=== PATIENT | female | born 1940 | race Caucasian/White ===

== ENCOUNTER 2024-09-29 11:23 | Emergency (ER) | payer MEDICARE, SELFPAY ==
--- NOTE | ~2024-09-29 | CT_ITS ---
EXAMINATION: CT MASTOIDS/TEMPORAL BONES WITHOUT CONTRAST CLINICAL INFORMATION: Right hearing loss, drainage, abnormal appearance of the tympanic membrane. 84-year-old female. COMPARISON: None available. TECHNIQUE: Axial CT imaging of the petrous temporal bones and mastoids was performed using standard technique from the region of the pterion to the base of the mandibular coronoid. Sagittal, coronal, and thin section axial reformatted images were constructed from the axial data set. This CT examination was performed using dose optimization techniques as appropriate, variously including the following: *Automated exposure control *Adjustment of mA and/or kV according to patient size (this includes techniques or standardized protocols for targeted exams where dose is matched to indication/reason for exam; i.e. extremities or head) *Use of iterative reconstruction technique DLP: 258 mGy-cm FINDINGS: Right Petrous Temporal Bone and Mastoid: -There is abnormal fluid opacity and/or soft tissue throughout the right mastoid air cells and mastoid antrum. There is extension of opacity through the mastoid antrum, into the middle ear cavity, surrounding the ossicles, and involving the epitympanum, mesotympanum, and hypotympanum. Only a small amount of pneumatization is present in the hypotympanum. -There is thickening and mild soft tissue surrounding and obscuring the tympanic membrane. No definite retraction although visualization is limited. -There is abnormal opacity in the bony canalicular EAC abutting the tympanic. Remainder of the EAC is normal. -There is no bony erosion or ossicular erosion identified. Ossicles appear intact and normally aligned. The scutum is not eroded. -The tegmen tympani is intact. Tegmen mastoideum is intact. -The middle ear structures including the IAC, cochlea, vestibule, and semicircular canals are normal in appearance. -There is normal mineralization of the bony otic capsule. -No evidence of semicircular canal dehiscence. -Carotid canal is corticated. -The 7th nerve canal has a normal course and appearance. -The right TM joint demonstrates mild arthritis with a small amount of chondrocalcinosis present. Left Petrous Temporal Bone and Mastoid: --There is abnormal fluid opacity and/or soft tissue throughout the left mastoid air cells and mastoid antrum. There is extension of opacity through the mastoid antrum, into the middle ear cavity, surrounding the ossicles, and involving the epitympanum, mesotympanum, and hypotympanum. No pneumatization of the middle ear canal. -There is thickening and soft tissue surrounding and obscuring the tympanic membrane. No definite retraction although visualization is limited. -There is abnormal opacity in the bony canalicular EAC obscuring the tympanic. There is soft tissue narrowing of the mid EAC with tapering/worsening approaching the tympanic. -There is no bony erosion or ossicular erosion identified. Ossicles appear intact and normally aligned. The scutum is not eroded. -The tegmen tympani is intact. Tegmen mastoideum is intact. -The middle ear structures including the IAC, cochlea, vestibule, and semicircular canals are normal in appearance. -There is normal mineralization of the bony otic capsule. -No evidence of semicircular canal dehiscence. -Carotid canal is corticated. -The 7th nerve canal has a normal course and appearance. -The left TM joint demonstrates moderate arthritis with a associated chondrocalcinosis present. OTHER: -Left pterional craniotomy. -Moderate polypoid mucosal thickening right sphenoid sinus with mild bony thickening of the sinus wall suggesting chronicity. -Left lens replacement. Globes and orbital contents otherwise appear normal. -Limited imaging of the intracranial contents demonstrates no acute abnormality. -Degenerative changes atlantoaxial joint, partially imaged. CT/CT mastoid IMPRESSION: 1. Soft tissue/fluid opacity throughout the bilateral mastoid air cells, bilateral mastoid antra, and bilateral middle ear cavities with only a tiny amount of pneumatization in the right hypotympanum. Soft tissue/fluid attenuation surrounds the bony ossicles bilaterally without evidence of ossicular erosion or other bony erosions. No tegmen dehiscence is evident. Findings are most likely inflammatory in nature related to middle ear and mastoid effusions. Doubt cholesteatoma given the lack of associated osseous erosions. 2. The bilateral cochlea, vestibule, and semicircular canals image normally. Normal bony otic capsules. 3. 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 4. 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 Electronically signed by: He Vasquez MD 09/29/2024 03:40 PM [facility]
[2024-09-29 11:40] VITALS: BP 154/72; PULSE 65; RESP 18; TEMP 36.9; O2SAT 100; BMI 23.4
--- NOTE | 2024-09-29 12:13 | ED.EAR ---
HPI - Ear Problem General Chief complaint: Ear Problems Stated complaint: R EARDRUM RUPTURED W/PUS,LOSS OF HEARING PER EMS Time Seen by Provider: 09/29/24 11:40 Source: patient, EMS, RN notes reviewed and old records reviewed Mode of arrival: EMS Limitations: other (poor historian) History of Present Illness ED Provider: Torrie Deluca PA-C HPI Narrative: 84 yo female with history of MD Complaint: ear discharge and decreased hearing Location: right ear Duration: constant Discharge from ear: yes - purulent Associated symptoms ear: decreased hearing Treatment prior to arrival: other (po abx, started ceftin 09/28) Related Data Allergies Allergy/AdvReac Type Severity Reaction Status Date / Time bee venom protein (honey bee) Allergy Unknown Verified 09/29/24 11:46 droperidol [From Inapsine] Allergy Unknown Verified 09/29/24 11:46 folic acid Allergy Unknown Verified 09/29/24 11:46 Gadolinium-Containing Allergy Unknown Verified 09/29/24 11:46 Contrast Medi meperidine [From Demerol] Allergy Unknown Verified 09/29/24 11:46 Review of Systems Review of Systems: Yes all other systems are reviewed and are negative PMFSH Social History Social History Advance Directives: No Advance Directives Information Provided: Yes Physical Exam Vital Signs: Vital Signs: Last Vital Signs Temp 98.4 F 09/29/24 11:40 Pulse 65 09/29/24 11:40 Resp 18 09/29/24 11:40 BP 154/72 H 09/29/24 11:40 Pulse Ox 100 09/29/24 11:40 O2 Del Method Room Air 09/29/24 11:40 BMI result Body Mass Index 23.4 Critical Care Time Critical Care Time Critical Care Time: No Discharge Plan Discharge Clinical Impression: Otitis externa Patient Disposition: Home, Self-Care Print Language: Turkmen
[2024-09-29 15:03] VITALS: BP 162/76; PULSE 76; RESP 18; TEMP 36.9; O2SAT 100
[2024-09-29 16:52] VITALS: BP 150/79; PULSE 75; RESP 18; TEMP 37; O2SAT 97
[2024-09-29] MEDS: levoFLOXacin 500 MG TABLET PO (16:52)
[2024-09-29 17:08] VITALS: BP 150/79; PULSE 75; RESP 18; TEMP 37; O2SAT 97
== END 2024-09-29 17:09 | disposition home or self-care (01) ==
PROVIDERS: Emergency Provider Emergency Medicine Emergency Medical Services; PCP Nurse Practitioner Family
DX: H60.91 Unspecified otitis externa, right ear (principal); H92.11 Otorrhea, right ear; I11.0 Hypertensive heart disease with heart failure; I50.9 Heart failure, unspecified; E78.5 Hyperlipidemia, unspecified
CPT/HCPCS: 70481; 99283; 99284

== ENCOUNTER → 2024-09-29 12:12 | Outpatient (BNV) | payer MEDICARE, SELFPAY | PROVIDERS: Emergency Provider Emergency Medicine Emergency Medical Services; PCP Nurse Practitioner Family; Visit Provider Radiology Diagnostic Radiology | DX: H92.11 Otorrhea, right ear (principal); H91.91 Unspecified hearing loss, right ear | CPT/HCPCS: 70481 ==

== ENCOUNTER 2024-10-13 10:47 | Inpatient (IN) | payer MEDICARE, OTHER, SELFPAY ==
[2024-10-13] VITALS (13 sets, daily range): BP systolic 90–147; BP diastolic 43–76; PULSE 61–96; RESP 12–19; TEMP 36.4–38.6; O2SAT 89–100; BMI 20.6
--- NOTE | ~2024-10-13 | CT_ITS ---
CLINICAL HISTORY: Patient with Sepsis, vomiting, source unclear CT ABDOMEN AND PELVIS WITH CONTRAST Comparison: None Findings: There are confluent airspace opacities in the bilateral lower lobes. No pleural effusion. Small hiatal hernia. The heart is enlarged with no significant pericardial effusion. No acute abnormalities in the solid organs. No urolithiasis. The gallbladder is not visualized. No bowel obstruction, pneumoperitoneum, or pneumatosis. Multiple small and large bowel loops are nondistended limited evaluation for mucosal thickening. There appears to be paracolic fat stranding in the descending colon. Large duodenal diverticulum. The appendix is not seen. There are senescent changes in the uterus. Urinary bladder unremarkable. No free fluid. There is a T12 compression fracture with 4 mm bony retropulsion. There is 70 percent body height loss. Advanced degenerative changes in the lumbar spine with levoscoliosis. There is a large avulsion fracture in the greater trochanter of the proximal left femur. Fracture margins appear partly sclerotic. No hip dislocation. IMPRESSION: 1. Motion affected study. 2. Possible colitis in the descending colon. No perforation or ischemia. 3. No peritoneal abscess, bowel obstruction or ascites. 4. No obstructive or acute inflammatory changes in the genitourinary tract. 5. Acute to subacute T12 compression fracture. 6. Acute to subacute displaced large avulsion fracture in the left greater trochanter. 7. Confluent airspace opacities in the bilateral lower lobes secondary to volume loss or infection. This document has been electronically signed by: Rica Urbano DO on 10/13/2024 17:56:38
--- NOTE | ~2024-10-13 | XR_ITS ---
EXAMINATION: Left hip and AP pelvis 3 views. CLINICAL INDICATION: Greater trochanter fracture. COMPARISON: None. FINDINGS: AP pelvis reveals normal bilateral hip joint and SI joint space. There is fracture of left greater trochanter. The right hip and proximal femur is unremarkable. No other pelvic fractures seen. AP and frog-leg views left hip reveal fracture of left greater trochanter. Loss of hip joint space likely arthritic changes seen. The soft tissues are normal. XR/XR hip LT min 2V w/wo pel IMPRESSION: Mildly displaced left greater trochanter fracture. Bilateral hip joint and rest of the pelvis appears unremarkable. Electronically signed by: Santos Gamboa MD 10/14/2024 10:32 AM [facility]
--- NOTE | ~2024-10-13 | XR_ITS ---
EXAMINATION: XR CHEST CLINICAL INFORMATION: fever, cough COMPARISON: Fever and cough TECHNIQUE: Frontal view of the chest was obtained. FINDINGS: The lungs are well-expanded and clear acute pneumonic process. There is platelike atelectasis/ scarring in left upper lobe. Prominent interstitial markings are seen in both lower lobes but no consolidation seen. The heart size and pulmonary vascularity is normal. No gross bony abnormality seen. XR/XR chest 1V IMPRESSION: Platelike atelectasis left upper lobe with prominent markings in both lower lobes. No suspicion for congestion. Electronically signed by: Santos Gamboa MD 10/13/2024 12:04 PM [facility] [place]
--- NOTE | 2024-10-13 11:10 | ED.GENADULT ---
HPI - General Adult General Chief complaint: Altered Mental Status Stated complaint: VOMITING,ALTERED,LOW SAT FROM [facility] Time Seen by Provider: 10/13/24 11:06 History of Present Illness ED Provider: Becky SPENCER narrative: The patient is an 84-year-old woman who lives at [facility]. She was sent to the hospital from the assisted living facility today apparently because she has been vomiting all night and seemed somewhat confused this morning. Here she was found to have a temperature of 101.5 degrees rectally. She has been coughing. The staff at the facility felt that she had a low oxygen saturation. The patient is deaf and is somewhat difficult to communicate with. She apparently normally communicates using writing and a white board. Currently she seems to be denying pain. She seems weak and is not making much of an effort to interact or communicate however. However she is denying abdominal pain. The patient's daughter says that the patient has a meningioma which has been reviewed at the [facility] and is considered to be untreatable. The daughter says they has been told that this will likely impinge on the patient's optic nerves and may cause blindness. The patient's daughter is Romy Charlton. Her phone number is [phone]. Related Data Home Medications ?Medication ?Instructions ?Recorded ?Confirmed acetaminophen 325 mg tablet 650 mg PO Q6H PRN Pain (Scale 10/13/24 10/13/24 Score 1-3) adalimumab 40 mg/0.4 mL 40 mg subcut Q14D 10/13/24 10/13/24 subcutaneous pen kit aspirin 81 mg tablet,delayed 81 mg PO DAILY 10/13/24 10/13/24 release atorvastatin 40 mg tablet 40 mg PO DAILY 10/13/24 10/13/24 bisacodyl 10 mg rectal suppository 10 mg MI DAILY PRN Constipation 10/13/24 10/13/24 escitalopram oxalate 5 mg tablet 7.5 mg PO DAILY 10/13/24 10/13/24 famotidine 20 mg tablet 20 mg PO BID 10/13/24 10/13/24 furosemide 20 mg tablet 20 mg PO DAILY 10/13/24 10/13/24 magnesium hydroxide 400 mg/5 mL 30 ml PO DAILY PRN Constipation 10/13/24 10/13/24 oral suspension (Milk of Magnesia) magnesium oxide 400 mg PO BID 10/13/24 10/13/24 metoprolol tartrate 25 mg tablet 12.5 mg PO BEDTIME 10/13/24 10/13/24 multivitamin 1 tab PO DAILY 10/13/24 10/13/24 niacinamide 500 mg tablet 500 mg PO DAILY 10/13/24 10/13/24 ondansetron HCl 4 mg tablet 4 mg PO Q8H PRN Nausea And Vomiting 10/13/24 10/13/24 oxcarbazepine 150 mg tablet 150 mg PO DAILY 10/13/24 10/13/24 oxcarbazepine 300 mg tablet 600 mg PO BEDTIME 10/13/24 10/13/24 potassium chloride 10 mEq 40 meq PO TID 10/13/24 10/13/24 capsule,extended release sennosides 8.6 mg tablet (senna) 8.6 mg PO BID PRN Constipation 10/13/24 10/13/24 sodium phosphates 19 gram-7 118 ml MI DAILY PRN Constipation 10/13/24 10/13/24 gram/118 mL enema (Fleet Enema) Allergies Allergy/AdvReac Type Severity Reaction Status Date / Time bee venom protein (honey bee) Allergy Unknown Verified 10/13/24 11:07 droperidol [From Inapsine] Allergy Unknown Verified 09/29/24 11:46 folic acid Allergy Unknown Verified 09/29/24 11:46 Gadolinium-Containing Allergy Unknown Verified 09/29/24 11:46 Contrast Medi meperidine [From Demerol] Allergy Unknown Verified 09/29/24 11:46 Review of Systems Review of Systems: Yes all other systems are reviewed and are negative [facility] Social History Social History Smoked in Last 30 Days: No Use of substances other than those prescribed or required for medical reasons: No Advance Directives: No Physical Exam ED Vital Signs: Vital Signs - 24 hr 10/13/24 11:05 10/13/24 12:05 10/13/24 13:48 Temperature 101.5 F H Pulse Rate 93 90 85 Respiratory Rate 18 19 18 Blood Pressure 113/46 L 147/76 H 134/54 L Pulse Oximetry 97 96 94 Oxygen Delivery Method Nasal Cannula Nasal Cannula Nasal Cannula Oxygen Flow Rate 4 4 10/13/24 14:11 10/13/24 14:56 10/13/24 16:34 Temperature 98.1 F 97.5 F Pulse Rate 83 80 81 Respiratory Rate 16 16 12 Blood Pressure 133/50 L 122/50 L 105/55 L Pulse Oximetry 99 95 98 Oxygen Delivery Method Nasal Cannula Nasal Cannula Room Air Oxygen Flow Rate 2 2 10/13/24 17:25 Temperature Pulse Rate 73 Respiratory Rate 18 Blood Pressure 137/63 Pulse Oximetry 100 Oxygen Delivery Method Nasal Cannula Oxygen Flow Rate 2 BMI result Body Mass Index 20.6 Const Other: The patient has a slight, chronically ill-appearing 84-year-old. She seemed to be resting. She did not seem in pain or respiratory distress. She was difficult to communicate with because she is deaf. I wrote on a white board to try to communicate with her. It was not clear if she was able to read my writing. HENMT Other: Face is symmetrical. Mucous membranes moist. I thought tympanic membranes were normal bilaterally. Eyes Other: Pupils are round equal, conjunctivae are clear, extraocular movements intact Neck Other: Neck is supple, no JVD Resp Other: No increased work of breathing. No definite crackles. Cardio Rate: regular rate Rhythm: regular rhythm Heart sounds: S1 normal heart sound present and S2 normal heart sound present GI Other: The abdomen was soft. There was no definite tenderness. Skin Other: Skin is pale and dry Neuro Other: The patient seemed to be sleeping. She aroused with gentle stimuli. She makes eye contact. She smiles. Her hearing is very poor. It was difficult to say if she reads lips. I tried to communicate with her with the whiteboard. It was hard to tell if she red my handwriting. About as much as I was able to communicate with her was that she does not have any abdominal pain. Her eye movements seem intact. Her face seems symmetrical. She seems to move her extremities symmetrically. Extrem Other: No peripheral edema Medications Administered Generic Name Dose Route Start Last Admin Trade Name Freq PRN Reason Stop Dose Admin Lactated Ringer's 1,000 mls @ 999 mls/hr 10/13/24 17:30 10/13/24 17:31 Lr IV 10/13/24 18:30 999 mls/hr .Q1H1M MODESTA Administration Discontinued Medications Generic Name Dose Route Start Last Admin Trade Name Freq PRN Reason Stop Dose Admin Piperacillin Sod/Tazobactam 100 mls @ 200 mls/hr 10/13/24 12:09 10/13/24 12:51 Sod 4.5 gm/ Sodium Chloride IV 10/13/24 12:38 Infused ONCE ONE Infusion Vancomycin HCl 1,250 mg/ 250 mls @ 166.667 mls/hr 10/13/24 12:10 10/13/24 14:48 Sodium Chloride IV 10/13/24 13:39 Infused ONCE ONE Infusion Lactated Ringer's 1,000 mls @ 999 mls/hr 10/13/24 12:15 10/13/24 14:07 Lr IV 10/13/24 13:15 Infused .Q1H1M MODESTA Infusion Lactated Ringer's 1,000 mls @ 999 mls/hr 10/13/24 16:30 10/13/24 17:24 Lr IV 10/13/24 17:30 Infused .Q1H1M MODESTA Infusion Iohexol 100 ml 10/13/24 14:40 10/13/24 14:40 Iohexol 350 Mg/Ml 100 Ml Infus..Btl IV 10/13/24 14:41 85 ml ONCE ONE Administration Medical Decision Making Medical Decision Making [facility] Narrative: The patient is an 84-year-old woman with a history of deafness and a history of an inoperable meningioma who presents with weakness and fever after having had multiple episodes of vomiting. She has an elevated white count. Her rectal temperature was 101.5. Blood cultures were obtained. Her lactate was 2.2. Urinalysis does not show a source of fever. Her abdomen seems benign. Chest x-ray did not show a definite pneumonia although there are some abnormalities on the chest x-ray. She was given empiric antibiotics of Zosyn and vancomycin and IV fluids. A CT scan of the abdomen and pelvis was done given her history of vomiting and the lack of a clear source of her fever. There was some delay in the reading of the CT scan. However the CT scan does not show any definite source of fever. There is a questionable finding of colitis. Given the absence of any abdominal pain or apparent tenderness I am not convinced the patient has colitis. The portion of the lungs visualized on CT shows bilateral lower lobe airspace disease. I think this is a more likely source of the patient's fever. The patient was in the emergency room for many hours. She ultimately looked much more lively. She will be admitted to the hospitalist service. Lab Data 10/13/24 11:35 10/13/24 11:35 Labs: Lab Results 10/13/24 10/13/24 10/13/24 Range/Units 11:35 12:51 15:35 WBC 21.2 H (4.8-10.8) X10*3/uL RBC 4.08 L (4.20-5.50) X10*6/uL Hgb 12.3 (12.0-16.0) g/dl Hct 38.1 (37.0-47.0) % MCV 93.4 (80.0-98.0) fL MCH 30.1 (27.0-33.0) pg MCHC 32.3 (31.0-35.0) g/dl RDW 15.9 (11.0-16.0) % Plt Count 193 (160-400) X10*3/uL MPV 8.7 L (9.4-12.3) fL Immature Gran % (Auto) Cancelled Neut % (Auto) Cancelled Lymph % (Auto) Cancelled [place] % (Auto) Cancelled Eos % (Auto) Cancelled Baso % (Auto) Cancelled Lymph # (Auto) Cancelled [place] # (Auto) Cancelled Eos # (Auto) Cancelled Baso # (Auto) Cancelled Abs Immat Gran (auto) Cancelled Absolute Neuts (auto) Cancelled Absolute Nucleated RBC 0.000 (0.0-0.012) X10*3/uL Nucleated RBC % (auto) 0.0 (0.0-0.2) /100WBC Neutrophils % (Manual) 89 H (45-73) % Band Neutrophils % 5 (3-5) % Lymphocytes % (Manual) 1 L (20-40) % Monocytes % (Manual) 5 (2-11) % Abs Neuts (Manual) 19.9 H (2.0-8.3) X10*3/uL Lymphocytes # (Manual) 0.2 L (1.2-4.9) X10*3/uL Monocytes # (Manual) 1.1 (0.1-1.2) X10*3/uL Toxic Vacuolation PRESENT Platelet Estimate NORMAL (NORMAL) Plt Morphology Comment NORMAL RBC Morphology NORMAL PT 15.8 H (10.9-12.4) SEC INR 1.4 H (0.9-1.1) Sodium 138 (135-145) mmol/L Potassium 4.0 (3.3-5.1) mmol/L Chloride 106 (96-108) mmol/L Carbon Dioxide 23 (22-29) mmol/L Anion Gap 13 (12-20) BUN 8 L (9-16) mg/dL Creatinine 0.87 (0.5-1.4) mg/dL Estim Creat Clear Calc 38.3 Estimated GFR > 60 Random Glucose 107 (60-115) mg/dL Lactic Acid 2.2 H* (0.5-2.0) mmol/L Lactic Acid F/U @ 2Hr 2.2 H* (0.5-2.0) mmol/L Calcium 8.9 (8.4-10.2) mg/dL Magnesium 1.5 L (1.6-2.6) mg/dL Total Bilirubin 0.5 (0.0-1.0) mg/dL Direct Bilirubin 0.2 (0.0-0.5) mg/dL AST 50 H (5-31) U/L ALT 24 (0-31) U/L Alkaline Phosphatase 175 H (39-117) U/L C-Reactive Protein 1.60 H (< or = 0.50) mg/dL Total Protein 7.3 (6.5-8.0) g/dL Albumin 3.4 L (3.5-5.0) g/dL Urine Color Yellow Urine Appearance Clear Urine pH 7.5 (5.0-9.0) Ur Specific [place] 1.015 (1.005-1.025) Urine Protein Negative (Neg-Trace) mg/dL Urine Glucose (UA) Negative (Negative) mg/dL Urine Ketones Negative (Negative) mg/dL Urine Blood Negative (Negative) Urine Nitrite Negative (Negative) Ur Leukocyte Esterase Negative (Negative) Influenza Type A (PCR) NEGATIVE (Negative) Influenza Type B (PCR) NEGATIVE (Negative) RSV RNA Qual (PCR) NEGATIVE (Negative) SARS-CoV-2 RNA (RT-PCR) NEGATIVE (Negative) Discharge Plan Discharge Patient Disposition: Admitted As Inpatient Prescriptions: No Action multivitamin Tablet 1 tab PO DAILY atorvastatin 40 mg tablet 40 mg PO DAILY oxcarbazepine 150 mg Tablet 150 mg PO DAILY sennosides [senna] 8.6 mg Tablet 8.6 mg PO BID PRN (Reason: Constipation) potassium chloride 10 mEq Capsule, Extended Release 40 meq PO TID acetaminophen 325 mg Tablet 650 mg PO Q6H PRN (Reason: Pain (Scale Score 1-3)) ondansetron HCl 4 mg tablet 4 mg PO Q8H PRN (Reason: Nausea And Vomiting) oxcarbazepine 300 mg Tablet 600 mg PO BEDTIME aspirin 81 mg Tablet,Delayed Release (Dr/Ec) 81 mg PO DAILY famotidine 20 mg tablet 20 mg PO BID magnesium hydroxide [Milk of Magnesia] 400 mg/5 mL Suspension 30 ml PO DAILY PRN (Reason: Constipation) bisacodyl 10 mg Suppository 10 mg MI DAILY PRN (Reason: Constipation) niacinamide 500 mg Tablet 500 mg PO DAILY Fleet Enema 19-7 gram/118 mL Enema 118 ml MI DAILY PRN (Reason: Constipation) furosemide 20 mg tablet 20 mg PO DAILY escitalopram oxalate 5 mg tablet 7.5 mg PO DAILY metoprolol tartrate 25 mg Tablet 12.5 mg PO BEDTIME adalimumab 40 mg/0.4 mL Pen Injector Kit 40 mg SUBCUT Q14D magnesium oxide 400 mg magnesium Tablet 400 mg PO BID Print Language: Czech
--- NOTE | 2024-10-13 11:18 | ECG_ITS ---
Test Reason : WEAKNESS Blood Pressure : / mmHG Vent. Rate : 089 BPM Atrial Rate : 089 BPM P-R Int : 170 ms QRS Dur : 092 ms QT Int : 454 ms P-R-T Axes : 087 -50 056 degrees QTc Int : 552 ms Normal sinus rhythm Incomplete right bundle branch block Left anterior fascicular block Possible Lateral infarct , age undetermined Abnormal ECG No previous ECGs available Referred By: Bronson Pena Electronically Signed By:VAN HA MD
--- NOTE | 2024-10-13 11:34 | PHA.MEDREC ---
Addendum entered by Anna Carmen [facility] 10/14/24 12:06: Per nurse Arroyo at [facility], a dose of Humira was due yestereday 10/13/24. [employer] delivered 1 dose/1 syringe today 10/14/24 to be given. Original Note: Pharmacy Consult ? Medication Reconciliation Pharmacy has completed the medication reconciliation. Utilized med list to confirm home meds.
[2024-10-13 11:47] LABS: Hematocrit 38.1 % (37.0-47.0); Hemoglobin 12.3 g/dl (12.0-16.0); Mean Corpuscular HGB Conc 32.3 g/dl (31.0-35.0); Mean Corpuscular Hemoglobin 30.1 pg (27.0-33.0); Mean Corpuscular Volume 93.4 fL (80.0-98.0); Mean Platelet Volume 8.7 fL (9.4-12.3); Platelet Count 193 X10*3/uL (160-400); Red Blood Count 4.08 X10*6/uL (4.20-5.50); Red Cell Distribution Width 15.9 % (11.0-16.0); WBC ABN SCTR FOR CBC 1; White Blood Count 21.2 X10*3/uL (4.8-10.8)
[2024-10-13 11:50] LABS: INTERNATIONAL NORM RATIO 1.4 (0.9-1.1); Prothrombin Time 15.8 SEC (10.9-12.4)
[2024-10-13 12:02] LABS: Alanine Aminotransferase 24 U/L (0-31); Albumin Level 3.4 g/dL (3.5-5.0); Alkaline Phosphatase 175 U/L (39-117); Anion Gap 13 (12-20); Aspartate Amino Transferase 50 U/L (5-31); Bilirubin Direct 0.2 mg/dL (0.0-0.5); Bilirubin Total 0.5 mg/dL (0.0-1.0); Blood Urea Nitrogen 8 mg/dL (9-16); Calcium 8.9 mg/dL (8.4-10.2); Carbon Dioxide 23 mmol/L (22-29); Chloride 106 mmol/L (96-108); Creatinine Clr Calc Pharmacy 38.3; Estimated Glomerular Filt Rate > 60; Glucose Random 107 mg/dL (60-115); Magnesium 1.5 mg/dL (1.6-2.6); Sodium 138 mmol/L (135-145); Total Protein 7.3 g/dL (6.5-8.0)
[2024-10-13 12:07] LABS: Band Neutrophils Percent 5 % (3-5); Lactic Acid 2.2 mmol/L (0.5-2.0); Lymphocytes Absolute Manual 0.2 X10*3/uL (1.2-4.9); Lymphocytes Percent Manual 1 % (20-40); Monocytes Absolute Manual 1.1 X10*3/uL (0.1-1.2); Monocytes Percent Manual 5 % (2-11); Neutrophils Absolute Manual 19.9 X10*3/uL (2.0-8.3); Neutrophils Percent Manual 89 % (45-73); RBC Morphology NORMAL
[2024-10-13 12:08] LABS: Platelet Estimate NORMAL (NORMAL); Platelet Morphology Comment NORMAL; Toxic Vacuolation PRESENT
[2024-10-13] MEDS: Piperacillin Sodium/Tazobactam 4.5 GM in 0.9 % Sodium Chloride 100 ML IV ×2 (12:17→21:23)
[2024-10-13] MEDS: Lactated Ringers 1,000 ML 999 ML IV ×3 (12:20→17:31)
[2024-10-13 12:22] LABS: Influenza A PCR NEGATIVE (Negative); Influenza B PCR NEGATIVE (Negative); Resp Syncy Virus RNA Qual PCR NEGATIVE (Negative); SARS COV2 PCR INHOUSE NEGATIVE (Negative)
[2024-10-13] MEDS: vancomycin HCL 1,250 MG in 0.9 % Sodium Chloride 250 ML 166.67 MG IV (12:50)
[2024-10-13 12:57] LABS: Appearance Urine Clear; Color Urine Yellow; Glucose Urine UA Negative (Negative); Leukocyte Esterase Urine Negative (Negative); Nitrite Urine Negative (Negative); PH 7.5 (5.0-9.0); Specific Gravity - Urine 1.015 (1.005-1.025); Urine Blood Negative (Negative); Urine Ketones Negative (Negative); Urine Protein Negative (Neg-Trace)
--- NOTE | 2024-10-13 13:21 | PC.NURSE ---
pt to ED from [facility] for reports of vomiting for much of last night. vomit stains on shirt are green. pt vomited once in ED. Pt changed, 20g IV right forearm and 20g IV left hand (EMS). fluids infusing, abx infusing. temp 1015 rectally. pt arrived on 4L o2 that was started by SNF staff for reports of hypoxia (mid 80s). Pt has not been tried off O2 yet in ED
[2024-10-13 13:41] LABS: Reflex Lactate? Lactic Acid Added
[2024-10-13] MEDS: iohexoL 350 MG/ML 100 ML INFUS..BTL IV (14:40)
[2024-10-13 16:04] LABS: ~Lactic Acid-LAB USE ONLY 2.2 mmol/L (0.5-2.0)
--- NOTE | 2024-10-13 16:06 | PC.NURSE ---
pt is very hard of hearing, has poor vision and arrives from [facility] emergency room confused. per daughter at bedside she is not acting her baseline. repeat lactate level sent, pt NSR on monitor. Pt sleeping. Weaned down to 2L oxygen, spot in high 90s.
[2024-10-13 17:42] LABS: Reflex Lactate? 2 Y
--- NOTE | 2024-10-13 19:43 | PC.NURSE ---
Attempted to wean off O2, d/t pt not wearing any oxygen at home, on RA oxygen dropped to 88 % pt placed on 2L
--- NOTE | 2024-10-13 20:43 | P.HPHOSP_ITS ---
History of Present Illness Date of Service: 10/13/24 Attending physician on admission: Ayden Booker Chief Complaint: Vomiting, fever, altered mental status Patient is an 84-year-old female with a past medical history significant combined CHF HLD benign neoplasm meninges epilepsy disease hypothyroidism, major depression disorder, hearing loss who presented to the ED from [facility] due to bilious vomiting last night, fever, cough and decreased responsiveness. Due to the patient's lack of responsiveness, unable to obtain history. The patient is deaf and communicates with the whiteboard however she has not been able to do so today. The ED provider was able to get some history from patient's daughter, Romy Charlton, who reported that she has a meningioma that has been reviewed at [facility] and considered untreatable. Review of Systems 2 Review of Systems: Yes Unobtainable due to mental condition [facility] Medical History (Updated 10/13/24 @ 20:54 by Charito Sorto PA-C) CHF (congestive heart failure) Epilepsy Crohn's disease Deaf Meningioma HLD (hyperlipidemia) HTN (hypertension) Social History Smoked in Last 30 Days: No Use of substances other than those prescribed or required for medical reasons: No Advance Directives: No Narrative: living at [facility]. Meds Allergies Allergy/AdvReac Type Severity Reaction Status Date / Time bee venom protein (honey bee) Allergy Unknown Verified 10/13/24 11:07 droperidol [From Inapsine] Allergy Unknown Verified 09/29/24 11:46 folic acid Allergy Unknown Verified 09/29/24 11:46 Gadolinium-Containing Allergy Unknown Verified 09/29/24 11:46 Contrast Medi meperidine [From Demerol] Allergy Unknown Verified 09/29/24 11:46 Active Medications: Current Medications Acetaminophen (Acetaminophen 325 Mg Tablet) 650 mg PO Q6H PRN PRN Reason: Pain, Mild 1-3,fever,headache Calcium Carbonate (Calcium Carbonate 750 Mg Tab.Chew) 750 mg PO Q4H PRN PRN Reason: Heartburn Enoxaparin Sodium (Enoxaparin Sodium 30 Mg/0.3 Ml Syringe) 30 mg SUBCUT Q24H [place] Piperacillin Sod/Tazobactam (Sod 4.5 gm/ Sodium Chloride) 100 mls @ 200 mls/hr IV Q6H [place] Magnesium Hydroxide (Milk Of Magnesia 30 Ml Oral.Susp) 30 ml PO DAILY PRN PRN Reason: Constipation Melatonin (Melatonin 3 Mg Tablet) 6 mg PO BEDTIME PRN PRN Reason: Insomnia Ondansetron HCl (Ondansetron Hcl 4 Mg/2 Ml Vial) 4 mg IVPUSH Q8H PRN PRN Reason: Nausea and Vomiting Sodium Chloride (0.9 % Sodium Chloride Flush 3 Ml Syringe) 3 ml IVFLUSH [facility] Medications ?Medication ?Instructions ?Recorded ?Confirmed ?Last Taken ?Type acetaminophen 325 mg tablet 650 mg PO Q6H PRN Pain (Scale 10/13/24 10/13/24 Unknown History Score 1-3) adalimumab 40 mg/0.4 mL 40 mg subcut Q14D 10/13/24 10/13/24 Unknown History subcutaneous pen kit aspirin 81 mg tablet,delayed 81 mg PO DAILY 10/13/24 10/13/24 Unknown History release atorvastatin 40 mg tablet 40 mg PO DAILY 10/13/24 10/13/24 Unknown History bisacodyl 10 mg rectal suppository 10 mg MI DAILY PRN Constipation 10/13/24 10/13/24 Unknown History escitalopram oxalate 5 mg tablet 7.5 mg PO DAILY 10/13/24 10/13/24 Unknown History famotidine 20 mg tablet 20 mg PO BID 10/13/24 10/13/24 Unknown History furosemide 20 mg tablet 20 mg PO DAILY 10/13/24 10/13/24 Unknown History magnesium hydroxide 400 mg/5 mL 30 ml PO DAILY PRN Constipation 10/13/24 10/13/24 Unknown History oral suspension (Milk of Magnesia) magnesium oxide 400 mg PO BID 10/13/24 10/13/24 Unknown History metoprolol tartrate 25 mg tablet 12.5 mg PO BEDTIME 10/13/24 10/13/24 Unknown History multivitamin 1 tab PO DAILY 10/13/24 10/13/24 Unknown History niacinamide 500 mg tablet 500 mg PO DAILY 10/13/24 10/13/24 Unknown History ondansetron HCl 4 mg tablet 4 mg PO Q8H PRN Nausea And Vomiting 10/13/24 10/13/24 Unknown History oxcarbazepine 150 mg tablet 150 mg PO DAILY 10/13/24 10/13/24 Unknown History oxcarbazepine 300 mg tablet 600 mg PO BEDTIME 10/13/24 10/13/24 Unknown History potassium chloride 10 mEq 40 meq PO TID 10/13/24 10/13/24 Unknown History capsule,extended release sennosides 8.6 mg tablet (senna) 8.6 mg PO BID PRN Constipation 10/13/24 10/13/24 Unknown History sodium phosphates 19 gram-7 118 ml MI DAILY PRN Constipation 10/13/24 10/13/24 Unknown History gram/118 mL enema (Fleet Enema) Physical Exam 2 Vital Signs and Narrative: Vital Signs: Last Vital Signs Temp 97.5 F 10/13/24 16:34 Pulse 69 10/13/24 19:19 Resp 13 10/13/24 19:19 BP 118/60 10/13/24 19:19 Pulse Ox 94 10/13/24 19:44 O2 Del Method Nasal Cannula 10/13/24 19:44 O2 Flow Rate 2 10/13/24 19:44 Oxygen Flow Rate 4 10/13/24 11:05 BMI result Body Mass Index 20.6 General: pt sleeping, wakes with external stimuli but goes back to sleep quickly, NAD Resp: crackles bilateral lower lungs, no wheezing, diminished throughout CVS: +murmur, RRR GI: +BS, NT, no distention Skin: Warm, dry Neuro: limited exam due to AMS and drowsiness, pupils equal, round and reactive to light. Extremities: No LE edema Results Labs 10/13/24 11:35 10/13/24 11:35 Labs: Laboratory Results - last 24 hr 10/13/24 10/13/24 10/13/24 11:35 12:51 15:35 MCV 93.4 MCH 30.1 MCHC 32.3 RDW 15.9 Plt Count 193 MPV 8.7 L Immature Gran % (Auto) Cancelled Neut % (Auto) Cancelled Lymph % (Auto) Cancelled [place] % (Auto) Cancelled Eos % (Auto) Cancelled Baso % (Auto) Cancelled Lymph # (Auto) Cancelled [place] # (Auto) Cancelled Eos # (Auto) Cancelled Baso # (Auto) Cancelled Abs Immat Gran (auto) Cancelled Absolute Neuts (auto) Cancelled Absolute Nucleated RBC 0.000 Nucleated RBC % (auto) 0.0 Neutrophils % (Manual) 89 H Band Neutrophils % 5 Lymphocytes % (Manual) 1 L Monocytes % (Manual) 5 Abs Neuts (Manual) 19.9 H Lymphocytes # (Manual) 0.2 L Monocytes # (Manual) 1.1 Toxic Vacuolation PRESENT Platelet Estimate NORMAL Plt Morphology Comment NORMAL RBC Morphology NORMAL PT 15.8 H INR 1.4 H Anion Gap 13 Estim Creat Clear Calc 38.3 Estimated GFR > 60 Random Glucose 107 Lactic Acid 2.2 H* Lactic Acid F/U @ 2Hr 2.2 H* Lactic Acid F/U @ 4Hr Calcium 8.9 Magnesium 1.5 L Total Bilirubin 0.5 Direct Bilirubin 0.2 AST 50 H ALT 24 Alkaline Phosphatase 175 H C-Reactive Protein 1.60 H Total Protein 7.3 Albumin 3.4 L Urine Color Yellow Urine Appearance Clear Urine pH 7.5 Ur Specific [place] 1.015 Urine Protein Negative Urine Glucose (UA) Negative Urine Ketones Negative Urine Blood Negative Urine Nitrite Negative Ur Leukocyte Esterase Negative Influenza Type A (PCR) NEGATIVE Influenza Type B (PCR) NEGATIVE RSV RNA Qual (PCR) NEGATIVE SARS-CoV-2 RNA (RT-PCR) NEGATIVE 10/13/24 18:44 MCV MCH MCHC RDW Plt Count MPV Immature Gran % (Auto) Neut % (Auto) Lymph % (Auto) [place] % (Auto) Eos % (Auto) Baso % (Auto) Lymph # (Auto) [place] # (Auto) Eos # (Auto) Baso # (Auto) Abs Immat Gran (auto) Absolute Neuts (auto) Absolute Nucleated RBC Nucleated RBC % (auto) Neutrophils % (Manual) Band Neutrophils % Lymphocytes % (Manual) Monocytes % (Manual) Abs Neuts (Manual) Lymphocytes # (Manual) Monocytes # (Manual) Toxic Vacuolation Platelet Estimate Plt Morphology Comment RBC Morphology PT INR Anion Gap Estim Creat Clear Calc Estimated GFR Random Glucose Lactic Acid Lactic Acid F/U @ 2Hr Lactic Acid F/U @ 4Hr 3.0 H* Calcium Magnesium Total Bilirubin Direct Bilirubin AST ALT Alkaline Phosphatase C-Reactive Protein Total Protein Albumin Urine Color Urine Appearance Urine pH Ur Specific [place] Urine Protein Urine Glucose (UA) Urine Ketones Urine Blood Urine Nitrite Ur Leukocyte Esterase Influenza Type A (PCR) Influenza Type B (PCR) RSV RNA Qual (PCR) SARS-CoV-2 RNA (RT-PCR) Imaging Radiologist's Impressions: Impressions Chest X-Ray 10/13/24 11:50 IMPRESSION: Platelike atelectasis left upper lobe with prominent markings in both lower lobes. No suspicion for congestion. Electronically signed by: Santos Gamboa MD 10/13/2024 12:04 PM [facility] [place] Plan (1) Sepsis: Status: Acute (2) Acute respiratory failure with hypoxia: Status: Acute (3) Pneumonia: Status: Acute (4) Fracture of left hip: Status: Acute (5) Prolonged QT interval: Status: Acute (6) Hypomagnesemia: Status: Acute Plan Patient is an 84-year-old female with a past medical history significant combined CHF, HLD, benign neoplasm meninges, epilepsy, HTN, hypothyroidism, major depression disorder, hearing loss who presented to the ED from [facility] due to bilious vomiting last night, fever, cough and decreased responsiveness. Sepsis with acute hypoxic respiratory failure, likely aspiration - WBC 21.2, lactate 2.2, soft BPs, blood cultures x2 pending, not severe sepsis - chest x-ray with platelike atelectasis left upper lobe with prominent markings in both lower lobes, no suspicion for congestion - abdominopelvic CT with possible colitis in the descending colon, acute to subacute T12 compression fracture and acute to subacute displaced large avulsion fracture in the left greater trochanter. Confluent airspace opacities in the bilateral lower lobes secondary to volume loss or infection. - UA negative - NPO untill mentating better, then consider swallow evaluation - given 3 L LR in ED - started on vancomycin and Zosyn due to unclear etiology of sepsis, however, further workup seems more significant for likely aspiration pneumonia, continue Zosyn - monitor CBC and BMP Acute metabolic encephalopathy - secondary to some since pneumonia - monitor CBC BMP Prolonged QTc likely secondary to hypomagnesemia - EKG with NSR, RBBB, QTC 552 - 1 g IV Mag - recheck Mag in a.m. - continuous cardiac monitoring Left hip fracture - found on CT as above, unable to determine if patient has pain - ED provider discussed with patient's daughter who reported that this likely from last summer, no recent fall - ortho consult Elevated LFTs likely secondary to sepsis Crohn's disease - patient on Humira - colitis on CT, not likely infectious CHF, no acute exacerbation - continue furosemide HLD - hold statin due to elevated LFTs Meningioma - benign - followed by the clinic Epilepsy - continue oxcarbazepine Hypothyroid - continue levothyroxine HTN - continue metoprolol DNR/DNI VTE prophylaxis: Lovenox Patient with sepsis and acute hypoxic respiratory failure secondary to likely aspiration pneumonia requiring admission for at least 2 midnight stay for IV antibiotics. Quality Stroke Does the patient have a stroke diagnosis?: No VTE Prior VTE?: No VTE Risk Level:: Medical - moderate - high VTE Device Contraindication: Treatment Not Indicated VTE Drug Contraindication: N/A - Med Ordered
[2024-10-13] MEDS: Enoxaparin Sodium 40 MG/0.4 ML SYRINGE SUBCUT (21:23)
[2024-10-13] MEDS: Magnesium Sulfate/H2O 2 GM/50 ML PIGGYBACK IV (21:24)
[2024-10-13] MEDS: 0.9 % Sodium Chloride Flush 3 ML SYRINGE IVFLUSH (23:28)
[2024-10-14] VITALS (11 sets, daily range): BP systolic 106–157; BP diastolic 50–86; PULSE 58–80; RESP 10–18; TEMP 36.3–36.9; O2SAT 95–100
--- NOTE | 2024-10-14 00:29 | PC.NURSE ---
patient being moved to overflow bed, Report called to Brandie at this time
--- NOTE | 2024-10-14 00:52 | MHC.EDTECH ---
This tech took over care of pt at this time,patient brought from the main ED to OF#5 ,pt placed in a hospital bed,pillows placed under left side for comfort, bed alarm on for safety,call basurto in reach
--- NOTE | 2024-10-14 03:18 | MHC.EDTECH ---
Rounds and vitals completed,patient is resting quietly,warm blanket given,call basurto in reach
--- NOTE | 2024-10-14 05:26 | MHC.EDTECH ---
Labs drawn and sent to lab,vitals taken
--- NOTE | 2024-10-14 05:31 | MHC.EDTECH ---
Patient being moved back to the main ED at this time,report given
[2024-10-14] MEDS: Piperacillin Sodium/Tazobactam 4.5 GM in 0.9 % Sodium Chloride 100 ML IV ×3 (05:37→22:56)
--- NOTE | 2024-10-14 05:39 | PC.NURSE ---
Pt woken for morning blood draw and routine antibiotic administration. Pt is awake, alert, conversing with staff (inquiring about whether or not the NC at 2lpm is still required), and is without distress noted. She offers no complaints at this time. Pt is being relocated back to the main (ED Bed 1) for telemetry monitoring per hospitalist order. Pt is aware and agreeable. Pre-hospital line in the left hand remains secure and flushes with ease as does the right forearm IV that was placed in the ED upon arrival. Report to be given to JASON Duque and JASON Quinonez.
[2024-10-14 05:44] LABS: Basophils Percent Auto 0.2 % (0-2); Eosinophils Absolute Auto 0.1 X10*3/uL (0.0-0.4); Eosinophils Percent Auto 0.6 % (0-4); Hematocrit 31.1 % (37.0-47.0); Hemoglobin 10.2 g/dl (12.0-16.0); Imm Gran Abs Auto 0.09 X10*3/uL (0.00-0.03); Imm Gran Pct Auto 0.6 % (0.0-0.4); Lymphocytes Absolute Auto 2.2 X10*3/uL (1.2-4.9); Lymphocytes Percent Auto 14.1 % (20-40); MANUAL DIFF FLAG NO; Mean Corpuscular HGB Conc 32.8 g/dl (31.0-35.0); Mean Corpuscular Hemoglobin 29.9 pg (27.0-33.0); Mean Corpuscular Volume 91.2 fL (80.0-98.0); Mean Platelet Volume 8.9 fL (9.4-12.3); Monocytes Absolute Auto 0.9 X10*3/uL (0.1-1.2); Monocytes Percent Auto 5.8 % (2-11); Neutrophils Absolute Auto 12.4 x10*3/uL (2.0-8.3); Neutrophils Percent Auto 78.7 % (45-73); Platelet Count 156 X10*3/uL (160-400); Red Blood Count 3.41 X10*6/uL (4.20-5.50); Red Cell Distribution Width 16.1 % (11.0-16.0); White Blood Count 15.8 X10*3/uL (4.8-10.8)
[2024-10-14 05:58] LABS: Anion Gap 11 (12-20); Blood Urea Nitrogen 7 mg/dL (9-16); Calcium 8.4 mg/dL (8.4-10.2); Carbon Dioxide 25 mmol/L (22-29); Chloride 107 mmol/L (96-108); Creatinine Clr Calc Pharmacy 42.2; Estimated Glomerular Filt Rate > 60; Glucose Random 70 mg/dL (60-115); Potassium 3.7 mmol/L (3.3-5.1); Sodium 139 mmol/L (135-145)
--- NOTE | 2024-10-14 06:44 | PC.NURSE ---
Assumed care for pt at 0545. Pt bladder scanned 411 ml, Dr Booker made aware. 16 fr paula placed per MD orders. pt drained 700 ml upon insertion. pt tolerated paula placement well. Pt resting in hospital bed in no notable distress. call basurto is within reach, plan of care ongoing
[2024-10-14] MEDS: 0.9 % Sodium Chloride Flush 3 ML SYRINGE IVFLUSH ×2 (07:41→15:26)
--- NOTE | 2024-10-14 08:13 | PM.CNOR ---
History of Present Illness HPI Consult date: 10/14/24 Chief complaint: Fever Narrative: Patient is an 84-year-old female who presented to the hospital for evaluation of fever, nausea, vomiting Abdomen and pelvis CT taken to try to identify source of infection had incidental finding of large avulsion fracture of the greater trochanter of the left hip Patient does report a mild, aching pain in the left hip that has been present for some time, although she is unable to recall when exactly this pain started Patient states that she has had many falls throughout her life, stating that the most recent was in May, when she did sustain an injury to her left hip, although she is unable to recall what exactly this injury was Per the ED, the patient's family stated that she was told that the treatment for her last hip injury was physical therapy, and there was no acute surgical intervention indicated at that time The patient states that she does not recall having left hip pain at that time, but is unable to recall when the pain she is currently experiencing in her left hip started The patient states that she does not experience any severe pain in her left hip, but states that she does have a mild, aching pain at baseline in that hip, that she notices more when she is lying down in bed Patient states that she is unsure if this injury could have been due to her fall in May or if it could be when she was transferred at the facility at which she lives Of note, the patient states that she is minimally ambulatory at baseline, as she frequently goes from her bed to a chair as she is scared of repeat falls No other acute orthopedic complaints or concerns at this time Review of Systems Review of Systems: Yes all other systems are reviewed and are negative [facility] Past Medical History Medical History (Updated 10/14/24 @ 08:25 by GRIS Michele) CHF (congestive heart failure) Epilepsy Crohn's disease Deaf Meningioma HLD (hyperlipidemia) HTN (hypertension) Social History Social History Smoked in Last 30 Days: No Use of substances other than those prescribed or required for medical reasons: No Advance Directives: No Meds Allergies Allergy/AdvReac Type Severity Reaction Status Date / Time bee venom protein (honey bee) Allergy Unknown Verified 10/13/24 11:07 droperidol [From Inapsine] Allergy Unknown Verified 09/29/24 11:46 folic acid Allergy Unknown Verified 09/29/24 11:46 Gadolinium-Containing Allergy Unknown Verified 09/29/24 11:46 Contrast Medi meperidine [From Demerol] Allergy Unknown Verified 09/29/24 11:46 Active Medications: Current Medications Acetaminophen (Acetaminophen 325 Mg Tablet) 650 mg PO Q6H PRN PRN Reason: Pain, Mild 1-3,fever,headache Calcium Carbonate (Calcium Carbonate 750 Mg Tab.Chew) 750 mg PO Q4H PRN PRN Reason: Heartburn Enoxaparin Sodium (Enoxaparin Sodium 40 Mg/0.4 Ml Syringe) 40 mg SUBCUT Q24H [facility] Last Admin: 10/13/24 21:23 Dose: 40 mg Piperacillin Sod/Tazobactam (Sod 4.5 gm/ Sodium Chloride) 100 mls @ 200 mls/hr IV Q8H [facility] Last Infusion: 10/14/24 06:13 Dose: Infused Magnesium Hydroxide (Milk Of Magnesia 30 Ml Oral.Susp) 30 ml PO DAILY PRN PRN Reason: Constipation Melatonin (Melatonin 3 Mg Tablet) 6 mg PO BEDTIME PRN PRN Reason: Insomnia Ondansetron HCl (Ondansetron Hcl 4 Mg/2 Ml Vial) 4 mg IVPUSH Q8H PRN PRN Reason: Nausea and Vomiting Sodium Chloride (0.9 % Sodium Chloride Flush 3 Ml Syringe) 3 ml IVFLUSH QSHIFT [facility] Last Admin: 10/14/24 07:41 Dose: 3 ml Home Medications ?Medication ?Instructions ?Recorded ?Confirmed ?Last Taken ?Type acetaminophen 325 mg tablet 650 mg PO Q6H PRN Pain (Scale 10/13/24 10/13/24 Unknown History Score 1-3) adalimumab 40 mg/0.4 mL 40 mg subcut Q14D 10/13/24 10/13/24 Unknown History subcutaneous pen kit aspirin 81 mg tablet,delayed 81 mg PO DAILY 10/13/24 10/13/24 Unknown History release atorvastatin 40 mg tablet 40 mg PO DAILY 10/13/24 10/13/24 Unknown History bisacodyl 10 mg rectal suppository 10 mg OR DAILY PRN Constipation 10/13/24 10/13/24 Unknown History escitalopram oxalate 5 mg tablet 7.5 mg PO DAILY 10/13/24 10/13/24 Unknown History famotidine 20 mg tablet 20 mg PO BID 10/13/24 10/13/24 Unknown History furosemide 20 mg tablet 20 mg PO DAILY 10/13/24 10/13/24 Unknown History magnesium hydroxide 400 mg/5 mL 30 ml PO DAILY PRN Constipation 10/13/24 10/13/24 Unknown History oral suspension (Milk of Magnesia) magnesium oxide 400 mg PO BID 10/13/24 10/13/24 Unknown History metoprolol tartrate 25 mg tablet 12.5 mg PO BEDTIME 10/13/24 10/13/24 Unknown History multivitamin 1 tab PO DAILY 10/13/24 10/13/24 Unknown History niacinamide 500 mg tablet 500 mg PO DAILY 10/13/24 10/13/24 Unknown History ondansetron HCl 4 mg tablet 4 mg PO Q8H PRN Nausea And Vomiting 10/13/24 10/13/24 Unknown History oxcarbazepine 150 mg tablet 150 mg PO DAILY 10/13/24 10/13/24 Unknown History oxcarbazepine 300 mg tablet 600 mg PO BEDTIME 10/13/24 10/13/24 Unknown History potassium chloride 10 mEq 40 meq PO TID 10/13/24 10/13/24 Unknown History capsule,extended release sennosides 8.6 mg tablet (senna) 8.6 mg PO BID PRN Constipation 10/13/24 10/13/24 Unknown History sodium phosphates 19 gram-7 118 ml OR DAILY PRN Constipation 10/13/24 10/13/24 Unknown History gram/118 mL enema (Fleet Enema) Physical Exam Vital Signs: Vital Signs: Last Vital Signs Temp 97.9 F 10/14/24 05:29 Pulse 60 10/14/24 05:29 Resp 16 10/14/24 05:29 BP 133/61 10/14/24 05:29 Pulse Ox 98 10/14/24 05:29 O2 Del Method Nasal Cannula 10/14/24 05:29 O2 Flow Rate 2 10/14/24 05:29 Oxygen Flow Rate 4 10/13/24 11:05 BMI result Body Mass Index 20.6 Extrem: Other: Patient's left hip normal to inspection No evidence of surrounding erythema, ecchymosis No evidence of infection Patient is able to flex and extend the digits of the left foot without difficulty Compartments soft, nontender No pain with passive forward flexion, internal or external rotation of the left hip Distal sensation intact Capillary refill brisk Results Labs 10/14/24 05:26 10/14/24 05:26 Labs: Abnormal lab results 10/13/24 10/13/24 10/13/24 Range/Units 11:35 15:35 18:44 WBC 21.2 H (4.8-10.8) X10*3/uL RBC 4.08 L (4.20-5.50) X10*6/uL Hgb (12.0-16.0) g/dl Hct (37.0-47.0) % RDW (11.0-16.0) % Plt Count (160-400) X10*3/uL MPV 8.7 L (9.4-12.3) fL Immature Gran % (Auto) (0.0-0.4) % Neut % (Auto) (45-73) % Lymph % (Auto) (20-40) % Abs Immat Gran (auto) (0.00-0.03) X10*3/uL Absolute Neuts (auto) (2.0-8.3) x10*3/uL Neutrophils % (Manual) 89 H (45-73) % Lymphocytes % (Manual) 1 L (20-40) % Abs Neuts (Manual) 19.9 H (2.0-8.3) X10*3/uL Lymphocytes # (Manual) 0.2 L (1.2-4.9) X10*3/uL PT 15.8 H (10.9-12.4) SEC INR 1.4 H (0.9-1.1) Anion Gap (12-20) BUN 8 L (9-16) mg/dL Lactic Acid 2.2 H* (0.5-2.0) mmol/L Lactic Acid F/U @ 2Hr 2.2 H* (0.5-2.0) mmol/L Lactic Acid F/U @ 4Hr 3.0 H* (0.5-2.0) mmol/L Magnesium 1.5 L (1.6-2.6) mg/dL AST 50 H (5-31) U/L Alkaline Phosphatase 175 H (39-117) U/L C-Reactive Protein 1.60 H (< or = 0.50) mg/dL Albumin 3.4 L (3.5-5.0) g/dL 01/03/25 Range/Units 05:26 WBC 15.8 H (4.8-10.8) X10*3/uL RBC 3.41 L (4.20-5.50) X10*6/uL Hgb 10.2 L (12.0-16.0) g/dl Hct 31.1 L (37.0-47.0) % RDW 16.1 H (11.0-16.0) % Plt Count 156 L (160-400) X10*3/uL MPV 8.9 L (9.4-12.3) fL Immature Gran % (Auto) 0.6 H (0.0-0.4) % Neut % (Auto) 78.7 H (45-73) % Lymph % (Auto) 14.1 L (20-40) % Abs Immat Gran (auto) 0.09 H (0.00-0.03) X10*3/uL Absolute Neuts (auto) 12.4 H (2.0-8.3) x10*3/uL Neutrophils % (Manual) (45-73) % Lymphocytes % (Manual) (20-40) % Abs Neuts (Manual) (2.0-8.3) X10*3/uL Lymphocytes # (Manual) (1.2-4.9) X10*3/uL PT (10.9-12.4) SEC INR (0.9-1.1) Anion Gap 11 L (12-20) BUN 7 L (9-16) mg/dL Lactic Acid (0.5-2.0) mmol/L Lactic Acid F/U @ 2Hr (0.5-2.0) mmol/L Lactic Acid F/U @ 4Hr (0.5-2.0) mmol/L Magnesium (1.6-2.6) mg/dL AST (5-31) U/L Alkaline Phosphatase (39-117) U/L C-Reactive Protein (< or = 0.50) mg/dL Albumin (3.5-5.0) g/dL H & H 10/13/24 10/14/24 Range/Units 11:35 05:26 Hgb 12.3 10.2 L (12.0-16.0) g/dl Hct 38.1 31.1 L (37.0-47.0) % Coagulation 10/13/24 Range/Units 11:35 INR 1.4 H (0.9-1.1) All other labs normal. Diagnostic results Hip CT: report reviewed and image reviewed Assessment and Plan (1) Closed avulsion fracture of greater trochanter of left femur: Status: Acute Plan 1. Greater trochanteric avulsion fracture of the left hip Fracture of unknown age Abdomen and pelvis CT did reveal this fracture, but was unable to give good assessment as to the age of the fracture Therefore, x-rays of left hip are ordered to better assess whether this is a acute or chronic issue Patient was minimally symptomatic at baseline, only reporting an achy pain that she notices more when laying in bed No pain with range of motion testing We will await x-rays for better age determination of the fracture, we will make final assessment at that time In the meantime, continue with pain management and all other recommendations per Medicine Procedures Date of Service Date of Service: 10/14/24
--- NOTE | 2024-10-14 08:43 | P.PNIM_ITS ---
Subjective Subjective Date of Service: 10/14/24 Interval History: f/u on sepsis d/t aspiration pna hip fracture, pt seems better today, only reporting pain in the hip with movment Physical Exam 2 Vital Signs: Vital Signs: Last Vital Signs Temp 97.9 F 10/14/24 05:29 Pulse 60 10/14/24 05:29 Resp 16 10/14/24 05:29 BP 133/61 10/14/24 05:29 Pulse Ox 98 10/14/24 05:29 O2 Del Method Nasal Cannula 10/14/24 05:29 O2 Flow Rate 2 10/14/24 05:29 Oxygen Flow Rate 4 10/13/24 11:05 BMI result Body Mass Index 20.6 Const: Other: General: Alert, pleasantly confused Resp: CTA bilateral CVS: S1,S2,RRR GI: +BS, NT, no distention Skin: No rash Neuro: motor grossly intact Psych: appropriate affect Objective Data Active Medications Acetaminophen (Acetaminophen 325 Mg Tablet) 650 mg PO Q6H PRN PRN Reason: Pain, Mild 1-3,fever,headache Calcium Carbonate (Calcium Carbonate 750 Mg Tab.Chew) 750 mg PO Q4H PRN PRN Reason: Heartburn Enoxaparin Sodium (Enoxaparin Sodium 40 Mg/0.4 Ml Syringe) 40 mg SUBCUT Q24H [facility] Last Admin: 10/13/24 21:23 Dose: 40 mg Documented By: GABRIELA Piperacillin Sod/Tazobactam (Sod 4.5 gm/ Sodium Chloride) 100 mls @ 200 mls/hr IV Q8H [facility] Last Infusion: 10/14/24 06:13 Dose: Infused Documented By: CASA Magnesium Hydroxide (Milk Of Magnesia 30 Ml Oral.Susp) 30 ml PO DAILY PRN PRN Reason: Constipation Melatonin (Melatonin 3 Mg Tablet) 6 mg PO BEDTIME PRN PRN Reason: Insomnia Ondansetron HCl (Ondansetron Hcl 4 Mg/2 Ml Vial) 4 mg IVPUSH Q8H PRN PRN Reason: Nausea and Vomiting Sodium Chloride (0.9 % Sodium Chloride Flush 3 Ml Syringe) 3 ml IVFLUSH QSHIFT [facility] Last Admin: 10/14/24 07:41 Dose: 3 ml Documented By: COLLETTE Labs 10/14/24 05:26 10/14/24 05:26 Labs: Laboratory Results - last 24 hr 10/13/24 10/13/24 10/13/24 11:35 12:51 15:35 MCV 93.4 MCH 30.1 MCHC 32.3 RDW 15.9 Plt Count 193 MPV 8.7 L Immature Gran % (Auto) Cancelled Neut % (Auto) Cancelled Lymph % (Auto) Cancelled [place] % (Auto) Cancelled Eos % (Auto) Cancelled Baso % (Auto) Cancelled Lymph # (Auto) Cancelled [place] # (Auto) Cancelled Eos # (Auto) Cancelled Baso # (Auto) Cancelled Abs Immat Gran (auto) Cancelled Absolute Neuts (auto) Cancelled Absolute Nucleated RBC 0.000 Nucleated RBC % (auto) 0.0 Neutrophils % (Manual) 89 H Band Neutrophils % 5 Lymphocytes % (Manual) 1 L Monocytes % (Manual) 5 Abs Neuts (Manual) 19.9 H Lymphocytes # (Manual) 0.2 L Monocytes # (Manual) 1.1 Toxic Vacuolation PRESENT Platelet Estimate NORMAL Plt Morphology Comment NORMAL RBC Morphology NORMAL PT 15.8 H INR 1.4 H Anion Gap 13 Estim Creat Clear Calc 38.3 Estimated GFR > 60 Random Glucose 107 Lactic Acid 2.2 H* Lactic Acid F/U @ 2Hr 2.2 H* Lactic Acid F/U @ 4Hr Calcium 8.9 Magnesium 1.5 L Total Bilirubin 0.5 Direct Bilirubin 0.2 AST 50 H ALT 24 Alkaline Phosphatase 175 H C-Reactive Protein 1.60 H Total Protein 7.3 Albumin 3.4 L Urine Color Yellow Urine Appearance Clear Urine pH 7.5 Ur Specific [place] 1.015 Urine Protein Negative Urine Glucose (UA) Negative Urine Ketones Negative Urine Blood Negative Urine Nitrite Negative Ur Leukocyte Esterase Negative Influenza Type A (PCR) NEGATIVE Influenza Type B (PCR) NEGATIVE RSV RNA Qual (PCR) NEGATIVE SARS-CoV-2 RNA (RT-PCR) NEGATIVE 10/13/24 10/14/24 18:44 05:26 MCV 91.2 MCH 29.9 MCHC 32.8 RDW 16.1 H Plt Count 156 L MPV 8.9 L Immature Gran % (Auto) 0.6 H Neut % (Auto) 78.7 H Lymph % (Auto) 14.1 L [place] % (Auto) 5.8 Eos % (Auto) 0.6 Baso % (Auto) 0.2 Lymph # (Auto) 2.2 [place] # (Auto) 0.9 Eos # (Auto) 0.1 Baso # (Auto) 0.0 Abs Immat Gran (auto) 0.09 H Absolute Neuts (auto) 12.4 H Absolute Nucleated RBC 0.000 Nucleated RBC % (auto) 0.0 Neutrophils % (Manual) Band Neutrophils % Lymphocytes % (Manual) Monocytes % (Manual) Abs Neuts (Manual) Lymphocytes # (Manual) Monocytes # (Manual) Toxic Vacuolation Platelet Estimate Plt Morphology Comment RBC Morphology PT INR Anion Gap 11 L Estim Creat Clear Calc 42.2 Estimated GFR > 60 Random Glucose 70 Lactic Acid Lactic Acid F/U @ 2Hr Lactic Acid F/U @ 4Hr 3.0 H* Calcium 8.4 Magnesium 2.0 Total Bilirubin Direct Bilirubin AST ALT Alkaline Phosphatase C-Reactive Protein Total Protein Albumin Urine Color Urine Appearance Urine pH Ur Specific [place] Urine Protein Urine Glucose (UA) Urine Ketones Urine Blood Urine Nitrite Ur Leukocyte Esterase Influenza Type A (PCR) Influenza Type B (PCR) RSV RNA Qual (PCR) SARS-CoV-2 RNA (RT-PCR) Assessment and Plan (1) Fracture of left hip: Status: Acute (2) Sepsis: Status: Acute Plan 84-year-old female with a past medical history significant combined CHF, HLD, benign neoplasm meninges, epilepsy, HTN, hypothyroidism, major depression disorder, hearing loss who presented to the ED from [facility] due to bilious vomiting last night, fever, cough and decreased responsiveness. Severe Sepsis with acute hypoxic respiratory failure, likely aspiration, clinically improving, WBC trending down, -continue Zosyn for presumed aspiration PNA, follow cultures, and trend wbc Acute metabolic encephalopathy d/t above, improving - monitor CBC BMP Prolonged QTc likely secondary to hypomagnesemia - EKG with NSR, RBBB, QTC 552, mag 1.5 corrected now 2 Left hip fracture - found on CT as above, unable to determine if patient has pain - ED provider discussed with patient's daughter who reported that this likely from last summer, no recent fall - ortho consult, xray to further assess age Elevated LFTs likely secondary to sepsis, hold statin Crohn's disease - patient on Humira - colitis on CT, not likely infectious CHF, no acute exacerbation - continue furosemide HLD - hold statin due to elevated LFTs Meningioma - benign - followed by the clinic Epilepsy - continue oxcarbazepine Hypothyroid - continue levothyroxine HTN - continue metoprolol DNR/DNI VTE prophylaxis: Lovenox admission for sepis, hip fracture Quality Stroke Does the patient have a stroke diagnosis?: No VTE Prior VTE?: No VTE Risk Level:: Medical - moderate - high VTE Device Contraindication: Treatment Not Indicated VTE Drug Contraindication: N/A - Med Ordered
--- NOTE | 2024-10-14 09:11 | PM.EVENT ---
Event Note Date of Service: 10/14/24 Event Note: X-rays obtained of left hip demonstrate that this avulsion fracture of the left greater trochanter is old and not acute No acute orthopedic intervention indicated at this time Patient should have physical therapy while in the hospital Weight-bearing as tolerated Patient can follow-up outpatient if she continues to have hip pain or other concerns Time Spent With Patient Time: Total time managing care of this patient today ____ minutes.
[2024-10-14] MEDS: Multivitamin TABLET 1 TAB PO (09:53)
[2024-10-14] MEDS: OXcarbazepine 150 MG TABLET PO (09:53)
[2024-10-14] MEDS: Magnesium Oxide 400 MG TABLET PO ×2 (09:53→22:43)
[2024-10-14] MEDS: Famotidine 20 MG TABLET PO ×2 (09:53→22:42)
[2024-10-14] MEDS: Escitalopram Oxalate 5 MG TABLET 7.5 MG PO (09:54)
[2024-10-14] MEDS: Aspirin Enteric Coated 81 MG TABLET.DR PO (09:54)
[2024-10-14] MEDS: Potassium Chloride ER 20 MEQ TAB.ER.PRT 40 MEQ PO ×3 (09:57→22:42)
--- NOTE | 2024-10-14 10:54 | MHC.CM.PN ---
PT FROM [facility] WHERE SHE WILL REIURN WHEN MEDICALLY ABLE
[2024-10-14] MEDS: ADALIMUMAB 40 MG/0.4 ML 40 EACH SUBCUT (12:22)
--- NOTE | 2024-10-14 13:17 | P.CDIM_ITS ---
PROVIDER RESPONSE TEXT: To clarify, the appropriate diagnosis supported by the clinical indicators: Other (explain): chronic heart failure NOS QUERY TEXT: PHYSICIAN'S DOCUMENTATION REQUEST Date of Query: 10/14/2024 09:57 AM EST Patient Name: Briana Loznao Admit Date: 10/14/2024 Dear Bucky Ruth MD, A review of the medical record indicates additional documentation may be needed. Please review below and update the documentation accordingly. Clinical Indicators: Progress note dated 10/14 - Past medical history significant combined CHF, HLD, HTN. Home medication: Furosemide 20 mg PO daily. No LE edema Crackles bilateral lower lungs, no wheezing. CHF, no exacerbation, continue Furosemide. Please provide further specificity regarding the most likely type and acuity of CHF that is noted wit hin the Past medical history, if known: Systolic Please specify if Acute, Chronic, or Acute on chronic, or Unable to determine Diastolic Please specify if Acute, Chronic, or Acute on chronic, or Unable to determine Combined Systolic/Diastolic Please specify if Acute, Chronic, or Acute on chronic, or Unable to determine Other (explain) Clinically unable to determine (explain) Thank you, Monica Viveros, CCS, CDIS Use of terms such as suspected, likely, concern for, or probable (associated with a specific diagnosi s that is being evaluated, monitored, or treated as if it exists) are acceptable and can be coded in the inpatient se tting, when documented at the time of discharge. Please use your independent medical judgment in providing your response. THIS QUERY IS PART OF THE PERMANENT MEDICAL RECORD
--- NOTE | 2024-10-14 16:25 | MHC.CM.PN ---
IMM 10/14/24, Pt resides in [facility]. HCP is her dtr jesse Stanton. uses a walker for DME. DCP is return to SNF via BLS. CM to follow for DC needs.
[2024-10-14] MEDS: OXcarbazepine 300 MG TABLET 600 MG PO (22:43)
[2024-10-14] MEDS: Metoprolol Tartrate 12.5 MG HALFTAB PO (22:45)
[2024-10-14] MEDS: Enoxaparin Sodium 40 MG/0.4 ML SYRINGE SUBCUT (22:51)
[2024-10-15 03:37] VITALS: BP 111/56; PULSE 60; RESP 18; TEMP 36.6; O2SAT 97
[2024-10-15] MEDS: Piperacillin Sodium/Tazobactam 4.5 GM in 0.9 % Sodium Chloride 100 ML IV ×3 (05:30→20:48)
[2024-10-15 07:30] VITALS: BP 136/63; PULSE 61; RESP 20; TEMP 36.5; O2SAT 98
[2024-10-15] MEDS: Escitalopram Oxalate 5 MG TABLET 7.5 MG PO (08:16)
[2024-10-15] MEDS: OXcarbazepine 150 MG TABLET PO (08:17)
[2024-10-15] MEDS: Aspirin Enteric Coated 81 MG TABLET.DR PO (08:17)
[2024-10-15] MEDS: Magnesium Oxide 400 MG TABLET PO ×2 (08:17→20:29)
[2024-10-15] MEDS: Famotidine 20 MG TABLET PO ×2 (08:18→20:29)
[2024-10-15] MEDS: Potassium Chloride ER 20 MEQ TAB.ER.PRT 40 MEQ PO ×3 (08:18→20:29)
[2024-10-15] MEDS: Multivitamin TABLET 1 TAB PO (08:19)
[2024-10-15] MEDS: 0.9 % Sodium Chloride Flush 3 ML SYRINGE IVFLUSH ×2 (08:21→15:23)
--- NOTE | 2024-10-15 10:01 | P.PNIM_ITS ---
Subjective Subjective Date of Service: 10/15/24 Interval History: Confused, no complaint of pain, nofever or sob Physical Exam 2 Vital Signs: Vital Signs: Last Vital Signs Temp 97.7 F 10/15/24 07:30 Pulse 61 10/15/24 07:30 Resp 20 10/15/24 07:30 BP 136/63 10/15/24 07:30 Pulse Ox 98 10/15/24 07:30 O2 Del Method Nasal Cannula 10/15/24 07:30 O2 Flow Rate 2 10/15/24 07:30 Oxygen Flow Rate 4 10/13/24 11:05 BMI result Body Mass Index 20.6 Const: Other: General: Alert, pleasantly confused Resp: CTA bilateral CVS: S1,S2,RRR GI: +BS, NT, no distention Skin: No rash Neuro: motor grossly intact Psych: appropriate affect Objective Data Active Medications Acetaminophen (Acetaminophen 325 Mg Tablet) 650 mg PO Q6H PRN PRN Reason: Pain, Mild 1-3,fever,headache Aspirin (Aspirin Enteric Coated 81 Mg Tablet.Dr) 81 mg PO DAILY [facility] Last Admin: 10/15/24 08:17 Dose: 81 mg Documented By: NOLA Bisacodyl (Bisacodyl 10 Mg Supp.Rect) 10 mg [place] DAILY PRN PRN Reason: Constipation Calcium Carbonate (Calcium Carbonate 750 Mg Tab.Chew) 750 mg PO Q4H PRN PRN Reason: Heartburn Enoxaparin Sodium (Enoxaparin Sodium 40 Mg/0.4 Ml Syringe) 40 mg SUBCUT Q24H [facility] Last Admin: 10/14/24 22:51 Dose: 40 mg Documented By: KAYCE Escitalopram Oxalate (Escitalopram Oxalate 5 Mg Tablet) 7.5 mg PO DAILY [facility] Last Admin: 10/15/24 08:16 Dose: 7.5 mg Documented By: NOLA Famotidine (Famotidine 20 Mg Tablet) 20 mg PO BID [facility] Last Admin: 10/15/24 08:18 Dose: 20 mg Documented By: NOLA Piperacillin Sod/Tazobactam (Sod 4.5 gm/ Sodium Chloride) 100 mls @ 200 mls/hr IV Q8H [facility] Last Infusion: 10/15/24 06:01 Dose: Infused Documented By: KAYCE Magnesium Hydroxide (Milk Of Magnesia 30 Ml Oral.Susp) 30 ml PO DAILY PRN PRN Reason: Constipation Magnesium Oxide (Magnesium Oxide 400 Mg Tablet) 400 mg PO BID [facility] Last Admin: 10/15/24 08:17 Dose: 400 mg Documented By: NOLA Melatonin (Melatonin 3 Mg Tablet) 6 mg PO BEDTIME PRN PRN Reason: Insomnia Metoprolol Tartrate (Metoprolol Tartrate 12.5 Mg Halftab) 12.5 mg PO BEDTIME [facility]; Protocol Last Admin: 10/14/24 22:45 Dose: 12.5 mg Documented By: KAYCE Multivitamins/Vitamin C (Multivitamin Tablet) 1 tab PO DAILY [facility] Last Admin: 10/15/24 08:19 Dose: 1 tab Documented By: NOLA Pt Own (Adalimumab 40 Mg/0.4 Ml Pen Injector Kit) 40 mg SUBCUT Q14D [facility] Last Admin: 10/14/24 12:22 Dose: 40 mg Documented By: COLLETTE Ondansetron HCl (Ondansetron Hcl 4 Mg/2 Ml Vial) 4 mg IVPUSH Q8H PRN PRN Reason: Nausea and Vomiting Oxcarbazepine (Oxcarbazepine 150 Mg Tablet) 150 mg PO DAILY [facility] Last Admin: 10/15/24 08:17 Dose: 150 mg Documented By: NOLA Oxcarbazepine (Oxcarbazepine 300 Mg Tablet) 600 mg PO BEDTIME [facility] Last Admin: 10/14/24 22:43 Dose: 600 mg Documented By: KAYCE Potassium Chloride (Potassium Chloride Er 20 Meq Tab.Er.Prt) 40 meq PO TID [facility] Last Admin: 10/15/24 08:18 Dose: 40 meq Documented By: NOLA Senna (Sennosides 8.6 Mg Tablet) 8.6 mg PO BID PRN PRN Reason: Constipation Sodium Biphosphate/Sodium Phosphate (Sodium Phosphate,[place]-Dibasic 133 Ml Enema) 118 ml [place] DAILY PRN PRN Reason: Constipation Sodium Chloride (0.9 % Sodium Chloride Flush 3 Ml Syringe) 3 ml IVFLUSH QSHIFT [facility] Last Admin: 10/15/24 08:21 Dose: 3 ml Documented By: NOLA Labs 10/14/24 05:26 10/14/24 05:26 Microbiology Microbiology Results: Microbiology 10/13/24 11:35 Blood Culture - Preliminary Blood - Venous No growth after 24 hours. 10/13/24 11:19 Blood Culture - Preliminary Blood - Venous No growth after 24 hours. Assessment and Plan (1) Fracture of left hip: Status: Acute (2) Sepsis: Status: Acute Plan 84-year-old female with a past medical history significant combined CHF, HLD, benign neoplasm meninges, epilepsy, HTN, hypothyroidism, major depression disorder, hearing loss who presented to the ED from [facility] due to bilious vomiting last night, fever, cough and decreased responsiveness. Severe Sepsis with acute hypoxic respiratory failure, likely aspiration, clinically improving, WBC trending down, -continue Zosyn for presumed aspiration PNA, follow cultures, and trend wbc Acute metabolic encephalopathy d/t above, improving. Has underlying dementia - monitor CBC BMP Prolonged QTc likely secondary to hypomagnesemia - EKG with NSR, RBBB, QTC 552, mag 1.5 corrected now 2 -repeat ECG Left hip fracture - found on CT as above, unable to determine if patient has pain - ED provider discussed with patient's daughter who reported that this likely from last summer, no recent fall - ortho consult, xray confirmed an acute fracture, ortho to decide on further management Elevated LFTs likely secondary to sepsis, hold statin Crohn's disease - patient on Humira - colitis on CT, not likely infectious CHF, no acute exacerbation - continue furosemide HLD - hold statin due to elevated LFTs Meningioma - benign - followed by the clinic Epilepsy - continue oxcarbazepine Hypothyroid - continue levothyroxine HTN - continue metoprolol DNR/DNI VTE prophylaxis: Lovenox admission for sepis, hip fracture Quality Stroke Does the patient have a stroke diagnosis?: No VTE Prior VTE?: No VTE Risk Level:: Medical - moderate - high VTE Device Contraindication: Treatment Not Indicated VTE Drug Contraindication: N/A - Med Ordered
[2024-10-15 10:57] LABS: Hematocrit 33.1 % (37.0-47.0); Hemoglobin 10.4 g/dl (12.0-16.0); Mean Corpuscular HGB Conc 31.4 g/dl (31.0-35.0); Mean Corpuscular Hemoglobin 29.1 pg (27.0-33.0); Mean Corpuscular Volume 92.5 fL (80.0-98.0); Mean Platelet Volume 8.8 fL (9.4-12.3); Platelet Count 177 X10*3/uL (160-400); Red Blood Count 3.58 X10*6/uL (4.20-5.50); Red Cell Distribution Width 16.4 % (11.0-16.0); White Blood Count 10.5 X10*3/uL (4.8-10.8)
[2024-10-15 11:24] LABS: Anion Gap 10 (12-20); Blood Urea Nitrogen 7 mg/dL (9-16); Calcium 8.2 mg/dL (8.4-10.2); Carbon Dioxide 23 mmol/L (22-29); Chloride 107 mmol/L (96-108); Creatinine Clr Calc Pharmacy 40.2; Estimated Glomerular Filt Rate > 60; Glucose Random 99 mg/dL (60-115); Potassium 4.1 mmol/L (3.3-5.1); Sodium 136 mmol/L (135-145)
[2024-10-15 11:42] VITALS: BP 136/61; PULSE 54; RESP 20; TEMP 36.3; O2SAT 97
[2024-10-15 14:55] VITALS: BP 135/60; PULSE 62; RESP 16; TEMP 36.2; O2SAT 98
[2024-10-15 19:43] VITALS: BP 148/73; PULSE 57; RESP 18; TEMP 36.2; O2SAT 99
[2024-10-15] MEDS: OXcarbazepine 300 MG TABLET 600 MG PO (20:29)
[2024-10-15] MEDS: Acetaminophen 325 MG TABLET 650 MG PO (20:42)
[2024-10-15] MEDS: Enoxaparin Sodium 40 MG/0.4 ML SYRINGE SUBCUT (20:43)
[2024-10-16] VITALS (8 sets, daily range): BP systolic 119–142; BP diastolic 58–76; PULSE 52–65; RESP 16–18; TEMP 36.2–37.1; O2SAT 96–99
[2024-10-16] MEDS: Piperacillin Sodium/Tazobactam 4.5 GM in 0.9 % Sodium Chloride 100 ML IV (05:02)
[2024-10-16 07:15] LABS: Hematocrit 32.7 % (37.0-47.0); Hemoglobin 10.5 g/dl (12.0-16.0); Mean Corpuscular HGB Conc 32.1 g/dl (31.0-35.0); Mean Corpuscular Hemoglobin 30.8 pg (27.0-33.0); Mean Corpuscular Volume 95.9 fL (80.0-98.0); Mean Platelet Volume 9.4 fL (9.4-12.3); Platelet Count 163 X10*3/uL (160-400); Red Blood Count 3.41 X10*6/uL (4.20-5.50); Red Cell Distribution Width 16.7 % (11.0-16.0); White Blood Count 5.5 X10*3/uL (4.8-10.8)
[2024-10-16 07:29] LABS: Blood Urea Nitrogen 5 mg/dL (9-16); Calcium 8.4 mg/dL (8.4-10.2); Creatinine Clr Calc Pharmacy 44.5; Estimated Glomerular Filt Rate > 60; Glucose Random 71 mg/dL (60-115)
[2024-10-16 07:44] LABS: Anion Gap 9 (12-20); Carbon Dioxide 24 mmol/L (22-29); Chloride 112 mmol/L (96-108); Potassium 5.2 mmol/L (3.3-5.1); Sodium 140 mmol/L (135-145)
[2024-10-16] MEDS: Escitalopram Oxalate 5 MG TABLET 7.5 MG PO (09:32)
[2024-10-16] MEDS: Multivitamin TABLET 1 TAB PO (09:35)
[2024-10-16] MEDS: OXcarbazepine 150 MG TABLET PO (09:35)
[2024-10-16] MEDS: Aspirin Enteric Coated 81 MG TABLET.DR PO (09:35)
[2024-10-16] MEDS: Famotidine 20 MG TABLET PO ×2 (09:35→21:03)
[2024-10-16] MEDS: Magnesium Oxide 400 MG TABLET PO ×2 (09:35→21:03)
[2024-10-16] MEDS: Potassium Chloride ER 20 MEQ TAB.ER.PRT 40 MEQ PO (09:35)
[2024-10-16] MEDS: 0.9 % Sodium Chloride Flush 3 ML SYRINGE IVFLUSH ×3 (09:40→21:06)
--- NOTE | 2024-10-16 09:51 | PM.DS ---
DS: Providers Provider Date of Service: 10/17/24 Date of admission: 10/13/24 20:31 Date of discharge: 10/17/24 Primary care physician: Jamal Olivier MD Consults: 10/13/24 21:08 Consult to Orthopedics Routine Consulting Provider: [facility] Reason for consultation: left hip fracture DS: Diagnosis Discharge Diagnosis (1) Fracture of left hip: Status: Acute (2) Sepsis: Status: Acute DS: Summary Hospital Course Hospital Course: admission hpi Chief Complaint: Vomiting, fever, altered mental status Patient is an 84-year-old female with a past medical history significant combined CHF HLD benign neoplasm meninges epilepsy disease hypothyroidism, major depression disorder, hearing loss who presented to the ED from [facility] due to bilious vomiting last night, fever, cough and decreased responsiveness. Due to the patient's lack of responsiveness, unable to obtain history. The patient is deaf and communicates with the whiteboard however she has not been able to do so today. The ED provider was able to get some history from patient's daughter, Romy Charlton, who reported that she has a meningioma that has been reviewed at [facility] and considered untreatable. Hospital course: Patien presented with fever, change in mental status and vomiting and had acute hypoxic respiratory failure, elevated wbc attricuted aspiration pneumonia leading to sepsis. She was also find to have an incidental hip fracture which is believed from a fall last summer, xray confirmed this to be old. Orthopedics is recommending no intervention and weight bearing as tolerated. Sepsis and Pnumonia was treated with IV zosyn, oxygen, WBC is back to normal, no fever and she's weaned of oxgygen and saturating 96% on room, she's been transition to oral Augmentin to complete a 7 day treatment of aspiration pneumonia. Acute metabolic encephalopathy d/t above, improving. Has underlying dementia and presently back at her baseline. Prolonged QTc likely secondary to hypomagnesemia--magnesium corrected. To continue potassium supplement at 40 eq twice daily to reduce risk of hyperkalemia, follow up on labs Left hip fracture--seen on CT of abdomen, xray showed this to be an old fracture, Ortho recommends weight bearing as tolerated and no intervention Elevated LFTs likely secondary to sepsis, hold statin Crohn's disease - patient on Humira - colitis on CT, not likely infectious CHF, no acute exacerbation - continue furosemide HLD - hold statin due to elevated LFTs Meningioma - benign - followed by the clinic Epilepsy - continue oxcarbazepine Hypothyroid - continue levothyroxine HTN - continue metoprolol DNR/DNI VTE prophylaxis: Lovenox admission for sepis, hip fracture Time Attestation Discharge Coordination Time (in mins): 40 Quality: Safe Use of Opioids Does Pt have an Active Cancer Diagnosis on the Problem List?: No Quality: Stroke Does the patient have a stroke diagnosis?: No Physical Exam Vital Signs: Vital Signs: Selected Entries 10/17/24 07:31 Temperature 97.1 F Pulse Rate 55 Respiratory Rate 16 Blood Pressure 153/68 H Pulse Oximetry 97 Oxygen Delivery Me thod Room Air Const: Other: General: Alert, pleasantly confused Resp: CTA bilateral CVS: S1,S2,RRR GI: +BS, NT, no distention Skin: No rash Neuro: motor grossly intact Psych: appropriate affect DS: Data Data Completed and Pending Labs on day of discharge: Laboratory Results - last 24 hr 10/15/24 10/16/24 10:50 06:06 WBC 10.5 5.5 RBC 3.58 L 3.41 L Hgb 10.4 L 10.5 L Hct 33.1 L 32.7 L MCV 92.5 95.9 MCH 29.1 30.8 MCHC 31.4 32.1 RDW 16.4 H 16.7 H Plt Count 177 163 MPV 8.8 L 9.4 Absolute Nucleated RBC 0.000 0.000 Nucleated RBC % (auto) 0.0 0.0 Sodium 136 140 Potassium 4.1 5.2 H D Chloride 107 112 H Carbon Dioxide 23 24 Anion Gap 10 L 9 L BUN 7 L 5 L Creatinine 0.83 0.75 Estim Creat Clear Calc 40.2 44.5 Estimated GFR > 60 > 60 Random Glucose 99 71 Calcium 8.2 L 8.4 Preliminary micro results at discharge 10/13/24 11:35 Blood Culture - Preliminary Blood - Venous No growth after 48 hours. 10/13/24 11:19 Blood Culture - Preliminary Blood - Venous No growth after 48 hours. Discharge Plan Discharge Anticipated Discharge Date/Time: 10/17/24 09:35 Patient Disposition: Xfer SNF Discharge Diagnosis: Acute hypoxic resp failure due to aspiration pneumonia, sepsis, old hip fracture Referrals: [facility] [Outside] - 1 Week Jamal Olivier MD [Primary Care Provider] - 1 Week Discharge Medications: New amoxicillin-pot clavulanate 875-125 mg Tablet 1 tab PO Q12H Qty: 4 0RF Continued multivitamin Tablet 1 tab PO DAILY atorvastatin 40 mg tablet 40 mg PO DAILY oxcarbazepine 150 mg Tablet 150 mg PO DAILY sennosides [senna] 8.6 mg Tablet 8.6 mg PO BID PRN (Reason: Constipation) acetaminophen 325 mg Tablet 650 mg PO Q6H PRN (Reason: Pain (Scale Score 1-3)) ondansetron HCl 4 mg tablet 4 mg PO Q8H PRN (Reason: Nausea And Vomiting) oxcarbazepine 300 mg Tablet 600 mg PO BEDTIME aspirin 81 mg Tablet,Delayed Release (Dr/Ec) 81 mg PO DAILY famotidine 20 mg tablet 20 mg PO BID magnesium hydroxide [Milk of Magnesia] 400 mg/5 mL Suspension 30 ml PO DAILY PRN (Reason: Constipation) bisacodyl 10 mg Suppository 10 mg OR DAILY PRN (Reason: Constipation) niacinamide 500 mg Tablet 500 mg PO DAILY Fleet Enema 19-7 gram/118 mL Enema 118 ml OR DAILY PRN (Reason: Constipation) furosemide 20 mg tablet 20 mg PO DAILY escitalopram oxalate 5 mg tablet 7.5 mg PO DAILY metoprolol tartrate 25 mg Tablet 12.5 mg PO BEDTIME adalimumab 40 mg/0.4 mL Pen Injector Kit 40 mg SUBCUT Q14D magnesium oxide 400 mg magnesium Tablet 400 mg PO BID Changed potassium chloride 10 mEq Capsule, Extended Release 40 meq PO BID Qty: 10 0RF Discharge Orders: Discharge Order (Routine); Ordered 10/17/24 Ordered By: Bucky Ruth Diet: Advance to usual diet Activity on Discharge: As tolerated Stand Alone Forms: Patient Portal Discharge page Print Language: Gabonese Care Plan Goals: recovery from pneumonia, and old hip fracture Health Concerns: pneumonia hypoxia resolved old hip fracture Plan of Treatment: take Augmentin to complete treatement for pneumonia potassium supplement reduced to 40 meq twice daily to reduce risk of hyperkalemia check labs (potassium ) within a 5 days Assessment: see above
[2024-10-16] MEDS: Sodium Zirconium Cyclosilicate 5 GM POWD.PACK PO (10:26)
--- NOTE | 2024-10-16 10:27 | P.PNIM_ITS ---
Subjective Subjective Date of Service: 10/16/24 Interval History: baseline confusion, no fever or shortness of breath Physical Exam 2 Vital Signs: Vital Signs: Last Vital Signs Temp 98.5 F 10/16/24 08:00 Pulse 55 10/16/24 08:00 Resp 16 10/16/24 08:00 BP 140/63 H 10/16/24 08:00 Pulse Ox 99 10/16/24 08:00 O2 Del Method Nasal Cannula 10/16/24 08:00 O2 Flow Rate 2.0 10/16/24 08:00 Oxygen Flow Rate 4 10/13/24 11:05 BMI result Body Mass Index 20.6 Const: Other: General: Alert, pleasantly confused Resp: CTA bilateral CVS: S1,S2,RRR GI: +BS, NT, no distention Skin: No rash Neuro: motor grossly intact Psych: appropriate affect Objective Data Active Medications Acetaminophen (Acetaminophen 325 Mg Tablet) 650 mg PO Q6H PRN PRN Reason: Pain, Mild 1-3,fever,headache Last Admin: 10/15/24 20:42 Dose: 650 mg Documented By: KAYCE Amoxicillin/Clavulanate Potassium (Amoxicillin/Potassium Clav 875 Mg Tablet) 875 mg PO Q12H [facility] Aspirin (Aspirin Enteric Coated 81 Mg Tablet.Dr) 81 mg PO DAILY [facility] Last Admin: 10/16/24 09:35 Dose: 81 mg Documented By: NOLA Bisacodyl (Bisacodyl 10 Mg Supp.Rect) 10 mg HI DAILY PRN PRN Reason: Constipation Calcium Carbonate (Calcium Carbonate 750 Mg Tab.Chew) 750 mg PO Q4H PRN PRN Reason: Heartburn Enoxaparin Sodium (Enoxaparin Sodium 40 Mg/0.4 Ml Syringe) 40 mg SUBCUT Q24H [facility] Last Admin: 10/15/24 20:43 Dose: 40 mg Documented By: KAYCE Escitalopram Oxalate (Escitalopram Oxalate 5 Mg Tablet) 7.5 mg PO DAILY [facility] Last Admin: 10/16/24 09:32 Dose: 7.5 mg Documented By: NOLA Famotidine (Famotidine 20 Mg Tablet) 20 mg PO BID [facility] Last Admin: 10/16/24 09:35 Dose: 20 mg Documented By: NOLA Magnesium Hydroxide (Milk Of Magnesia 30 Ml Oral.Susp) 30 ml PO DAILY PRN PRN Reason: Constipation Magnesium Oxide (Magnesium Oxide 400 Mg Tablet) 400 mg PO BID [facility] Last Admin: 10/16/24 09:35 Dose: 400 mg Documented By: NOLA Melatonin (Melatonin 3 Mg Tablet) 6 mg PO BEDTIME PRN PRN Reason: Insomnia Metoprolol Tartrate (Metoprolol Tartrate 12.5 Mg Halftab) 12.5 mg PO BEDTIME [facility]; Protocol Last Admin: 10/15/24 20:26 Dose: Not Given Documented By: KAYCE Non-Admin Reason: Decreased Heart Rate Multivitamins/Vitamin C (Multivitamin Tablet) 1 tab PO DAILY [facility] Last Admin: 10/16/24 09:35 Dose: 1 tab Documented By: NOLA Pt Own (Adalimumab 40 Mg/0.4 Ml Pen Injector Kit) 40 mg SUBCUT Q14D [facility] Last Admin: 10/14/24 12:22 Dose: 40 mg Documented By: COLLETTE Ondansetron HCl (Ondansetron Hcl 4 Mg/2 Ml Vial) 4 mg IVPUSH Q8H PRN PRN Reason: Nausea and Vomiting Oxcarbazepine (Oxcarbazepine 150 Mg Tablet) 150 mg PO DAILY [facility] Last Admin: 10/16/24 09:35 Dose: 150 mg Documented By: NOLA Oxcarbazepine (Oxcarbazepine 300 Mg Tablet) 600 mg PO BEDTIME [facility] Last Admin: 10/15/24 20:29 Dose: 600 mg Documented By: KAYCE Senna (Sennosides 8.6 Mg Tablet) 8.6 mg PO BID PRN PRN Reason: Constipation Sodium Biphosphate/Sodium Phosphate (Sodium Phosphate,[place]-Dibasic 133 Ml Enema) 118 ml HI DAILY PRN PRN Reason: Constipation Sodium Chloride (0.9 % Sodium Chloride Flush 3 Ml Syringe) 3 ml IVFLUSH QSHIFT [facility] Last Admin: 10/16/24 09:40 Dose: 3 ml Documented By: NOLA Labs 10/16/24 06:06 10/16/24 06:06 Labs: Laboratory Results - last 24 hr 10/15/24 10/16/24 10:50 06:06 MCV 92.5 95.9 MCH 29.1 30.8 MCHC 31.4 32.1 RDW 16.4 H 16.7 H Plt Count 177 163 MPV 8.8 L 9.4 Absolute Nucleated RBC 0.000 0.000 Nucleated RBC % (auto) 0.0 0.0 Anion Gap 10 L 9 L Estim Creat Clear Calc 40.2 44.5 Estimated GFR > 60 > 60 Random Glucose 99 71 Calcium 8.2 L 8.4 Microbiology Microbiology Results: Microbiology 10/13/24 11:35 Blood Culture - Preliminary Blood - Venous No growth after 48 hours. 10/13/24 11:19 Blood Culture - Preliminary Blood - Venous No growth after 48 hours. Assessment and Plan (1) Acute respiratory failure with hypoxia: Status: Acute (2) Pneumonia: Status: Acute Plan Patien presented with fever, change in mental status and vomiting and had acute hypoxic respiratory failure, elevated wbc attricuted aspiration pneumonia leading to sepsis. She was also find to have an incidental hip fracture which is believed from a fall last summer, xray confirmed this to be old. Sepsis and Pnumonia was treated with IV zosyn, oxygen, WBC is back to normal, no fever and she's weaned of oxgygen and saturating 96% on room, she's been transition to oral Augmentin to complete a 7 day treatment of aspiration pneumonia. Acute metabolic encephalopathy d/t above, improving. Has underlying dementia and presently back at her baseline. Prolonged QTc likely secondary to hypomagnesemia--magnesium corrected Left hip fracture--seen on CT of abdomen, xray showed this to be an old fracture, Ortho recommends weight bearing as tolerated and no intervention Elevated LFTs likely secondary to sepsis, hold statin Crohn's disease - patient on Humira - colitis on CT, not likely infectious CHF, no acute exacerbation - continue furosemide HLD - hold statin due to elevated LFTs Meningioma - benign - followed by the clinic Epilepsy - continue oxcarbazepine Hypothyroid - continue levothyroxine HTN - continue metoprolol DNR/DNI VTE prophylaxis: Lovenox admission for sepis, hip fracture Quality Stroke Does the patient have a stroke diagnosis?: No VTE Prior VTE?: No VTE Risk Level:: Medical - moderate - high VTE Device Contraindication: Treatment Not Indicated VTE Drug Contraindication: N/A - Med Ordered
[2024-10-16 11:09] LABS: Alanine Aminotransferase 9 U/L (0-31); Albumin Level 2.5 g/dL (3.5-5.0); Alkaline Phosphatase 106 U/L (39-117); Aspartate Amino Transferase 24 U/L (5-31); Bilirubin Direct 0.2 mg/dL (0.0-0.5); Bilirubin Total 0.4 mg/dL (0.0-1.0); Magnesium 1.8 mg/dL (1.6-2.6); Total Protein 5.6 g/dL (6.5-8.0)
[2024-10-16] MEDS: Amoxicillin/Potassium Clav 875 MG TABLET PO ×2 (11:36→21:06)
[2024-10-16 17:32] LABS: Anion Gap 12 (12-20); Carbon Dioxide 19 mmol/L (22-29); Chloride 112 mmol/L (96-108); Potassium 4.5 mmol/L (3.3-5.1); Sodium 138 mmol/L (135-145)
[2024-10-16] MEDS: Enoxaparin Sodium 40 MG/0.4 ML SYRINGE SUBCUT (21:03)
[2024-10-16] MEDS: OXcarbazepine 300 MG TABLET 600 MG PO (21:03)
[2024-10-16] MEDS: Metoprolol Tartrate 12.5 MG HALFTAB PO (21:03)
[2024-10-16] MEDS: Lactated Ringers 1,000 ML 80 ML IVCONT (21:54)
[2024-10-16 21:59] LABS: Anion Gap 10 (12-20); Carbon Dioxide 22 mmol/L (22-29); Chloride 112 mmol/L (96-108); Potassium 4.6 mmol/L (3.3-5.1); Sodium 139 mmol/L (135-145)
--- NOTE | 2024-10-17 00:19 | PC.NURSE ---
active FC order but patient has no catheter. will complete order.
[2024-10-17 03:57] VITALS: BP 154/65; PULSE 65; RESP 17; TEMP 36.2; O2SAT 95
[2024-10-17 06:20] LABS: Anion Gap 10 (12-20); Blood Urea Nitrogen 3 mg/dL (9-16); Calcium 8.6 mg/dL (8.4-10.2); Carbon Dioxide 21 mmol/L (22-29); Chloride 110 mmol/L (96-108); Creatinine Clr Calc Pharmacy 45.1; Estimated Glomerular Filt Rate > 60; Glucose Random 73 mg/dL (60-115); Potassium 4.4 mmol/L (3.3-5.1); Sodium 137 mmol/L (135-145)
--- NOTE | 2024-10-17 06:28 | PC.NURSE ---
patient bladder scanned for [address] for 500 yellow, clear urine. Dr Jhony claudio.
[2024-10-17 07:31] VITALS: BP 153/68; PULSE 55; RESP 16; TEMP 36.2; O2SAT 97
[2024-10-17] MEDS: Escitalopram Oxalate 5 MG TABLET 7.5 MG PO (08:32)
[2024-10-17] MEDS: OXcarbazepine 150 MG TABLET PO (08:33)
[2024-10-17] MEDS: Multivitamin TABLET 1 TAB PO (08:33)
[2024-10-17] MEDS: Aspirin Enteric Coated 81 MG TABLET.DR PO (08:33)
[2024-10-17] MEDS: Famotidine 20 MG TABLET PO (08:33)
[2024-10-17] MEDS: Magnesium Oxide 400 MG TABLET PO (08:33)
[2024-10-17] MEDS: Lactated Ringers 1,000 ML 80 ML IVCONT (08:38)
[2024-10-17] MEDS: Amoxicillin/Potassium Clav 875 MG TABLET PO (10:48)
--- NOTE | 2024-10-17 11:24 | MHC.CM.PN ---
IMM 10/17/24 Per MD rounds,Patient is ready to discharge today. She will transport via BLS. Patient's dtr has been notified of the discharge. She will meet patient at the SNF later this afternoon. 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
[2024-10-17 12:00] VITALS: BP 104/53; PULSE 55; RESP 16; TEMP 36.2
== END 2024-10-17 15:28 | disposition skilled nursing facility (03) | DRG 871 ==
LOC: HO.ED 18:24 → HO.EDOVER 20:35 → HO.IMC 10-14 14:36 → HO.S3 10-14 18:56
PROVIDERS: Admitting Provider Student in an Organized Health Care Education/Training Program; Emergency Provider Emergency Medicine; PCP Internal Medicine; Visit Provider Internal Medicine
DX: A41.9 Sepsis, unspecified organism (principal); G93.41 Metabolic encephalopathy; J69.0 Pneumonitis due to inhalation of food and vomit; J96.01 Acute respiratory failure with hypoxia; K50.90 Crohn's disease, unspecified, without complications; R65.20 Severe sepsis without septic shock; F03.90 Unspecified dementia, unspecified severity, without behavioral disturbance, psychotic disturbance, mood disturbance, and anxiety; I50.9 Heart failure, unspecified; D32.9 Benign neoplasm of meninges, unspecified; Z66 Do not resuscitate; R94.31 Abnormal electrocardiogram [ECG] [EKG]; G40.909 Epilepsy, unspecified, not intractable, without status epilepticus; E83.42 Hypomagnesemia; E78.5 Hyperlipidemia, unspecified; E03.9 Hypothyroidism, unspecified; Z20.822 Contact with and (suspected) exposure to COVID-19; Z79.82 Long term (current) use of aspirin; Z79.620 Long term (current) use of immunosuppressive biologic; Z79.899 Other long term (current) drug therapy
CPT/HCPCS: 0241U; 36415; 71045; 73502; 74177; 80048; 80051; 80076; 81003; 83605; 83735; 85007; 85025; 85027; 85610; 86140; 87040; 93005; 99285; C1758; J1650; J2543; J3371; J3475; J7120; Q9967

== ENCOUNTER → 2024-10-13 11:18 | Outpatient (BNV) | payer MEDICARE, MEDICAID, SELFPAY | PROVIDERS: Emergency Provider Emergency Medicine; PCP Internal Medicine; Visit Provider Internal Medicine Cardiovascular Disease | DX: R94.31 Abnormal electrocardiogram [ECG] [EKG] (principal) | CPT/HCPCS: 93010 ==

== ENCOUNTER → 2024-10-13 11:18 | Outpatient (BNV) | payer MEDICARE, MEDICAID, SELFPAY | PROVIDERS: Emergency Provider Emergency Medicine; PCP Internal Medicine; Visit Provider Radiology Diagnostic Radiology | DX: S72.112A Displaced fracture of greater trochanter of left femur, initial encounter for closed fracture (principal); R05.9 Cough, unspecified; R50.9 Fever, unspecified | CPT/HCPCS: 71045 ==

== ENCOUNTER 2024-10-13 20:31 | Outpatient (BNV) | payer MEDICARE, SELFPAY | END 2024-10-14 08:30 | PROVIDERS: Admitting Provider Student in an Organized Health Care Education/Training Program; Emergency Provider Emergency Medicine; PCP Internal Medicine; Visit Provider Radiology Diagnostic Radiology | DX: S72.112A Displaced fracture of greater trochanter of left femur, initial encounter for closed fracture (principal) | CPT/HCPCS: 73502 ==

== ENCOUNTER → 2024-10-13 20:31 | Outpatient (BNV) | payer MEDICARE, MEDICAID, SELFPAY | PROVIDERS: Admitting Provider Student in an Organized Health Care Education/Training Program; Emergency Provider Emergency Medicine; PCP Internal Medicine | DX: S72.112A Displaced fracture of greater trochanter of left femur, initial encounter for closed fracture (principal) | CPT/HCPCS: 99222; 99499 ==

== ENCOUNTER → 2024-10-13 20:31 | Outpatient (BNV) | payer MEDICARE, MEDICAID, SELFPAY | PROVIDERS: Admitting Provider Student in an Organized Health Care Education/Training Program; Emergency Provider Emergency Medicine; PCP Internal Medicine; Visit Provider Physician Assistant | DX: A41.9 Sepsis, unspecified organism (principal); J96.01 Acute respiratory failure with hypoxia; J18.9 Pneumonia, unspecified organism; S72.002A Fracture of unspecified part of neck of left femur, initial encounter for closed fracture; R94.31 Abnormal electrocardiogram [ECG] [EKG]; E83.42 Hypomagnesemia | CPT/HCPCS: 99223; 99232; 99239 ==

== ENCOUNTER 2025-09-07 20:45 | Inpatient (IN) | payer MEDICARE, MEDICAID, OTHER, SELFPAY ==
--- NOTE | ~2025-09-07 | CT_ITS ---
CLINICAL HISTORY: recurrent vomiting, possible hematemesis CT abdomen and pelvis with contrast Comparison: CT/SR - CT ABDOMEN PELVIS W IV CON - 10/13/24 14:35 EST Findings: LIMITED CHEST: Scarring/atelectasis at the right base. LIVER: No focal liver lesion. BILIARY: Cholecystectomy with prominent common bile duct, may be due to reservoir effect. PANCREAS: No mass or ductal dilatation. SPLEEN: No splenomegaly. KIDNEYS: No hydronephrosis or radiopaque stone. ADRENALS: No nodule. VASCULAR: No aneurysm. Large plaque burden of the SMA, with patent vasculature distally. RETROPERITONEUM: No lymphadenopathy or mass. BOWEL/MESENTERY: Large gastric wall lesser curvature mass measuring 5.7 x 4.7 cm. There is internal hypodensity suggesting necrosis. This is new compared to 10/13/2024. Liquid stool throughout the colon. ABDOMINAL WALL: No mass or significant abnormality. URINARY BLADDER: No focal wall thickening. PELVIC NODES: No pelvic lymphadenopathy. PELVIC ORGANS: Normal for age. BONES: No acute fracture. Remote appearing fracture of the left greater trochanter. T12 vertebral body compression deformity, chronic appearing. OTHER: Negative. IMPRESSION: Large necrotic mass of the gastric wall is suspicious for neoplasm. This was not present on 10/13/2024. Liquid stool throughout the colon, correlate with diarrheal illness. Additional incidental findings as above. This document has been electronically signed by: Danita Oneil MD on 09/08/2025 00:11:25
--- NOTE | ~2025-09-07 | XR_ITS ---
CLINICAL HISTORY: cough 1 view chest x-ray Comparison: CR/SR - XR CHEST 1 VIEW - 10/13/24 11:44 EST Findings: Rotated examination. No consolidation or effusion. Bilateral parenchymal scarring. Normal size heart. No acute fracture. IMPRESSION: 1. No acute findings. This document has been electronically signed by: Danita Oneil MD on 09/07/2025 23:49:00
[2025-09-07 20:52] VITALS: BP 110/74; PULSE 85; O2SAT 97
--- NOTE | 2025-09-07 20:56 | ED_ITS ---
HPI - Nausea/Vomiting/Diarrhea General Chief complaint: GI Bleed Stated complaint: Vomiting x1 week, today it produced blood & a clot Time Seen by Provider: 09/07/25 20:54 Source: patient, family, EMS and old records reviewed Mode of arrival: EMS Limitations: no limitations History of Present Illness ED Provider: CRISTI SPENCER Narrative: 85-year- old female with past medical history of CHF, epilepsy, Crohn's disease, meningioma, difficulty hearing, hyperlipidemia, hypertension, pneumonia, she is a DNR /DNI who comes in from [facility] with complaint of having 1 day of nausea and vomiting as well as loose stools. The PATIENT CARE TECHNICIAN at [facility] noted a streak of blood With possibly a clot. 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 She states she still has some nausea, but no abdominal pain, she denies any bloody stools. She has not had a fever. Her daughter is at the bedside who states for about a year she has these intermittent episodes of nausea and vomiting. They have decided not to treat the meningioma regardless of symptoms. She states they would not want anything done, but she is not sure if this could be causing her symptoms. MD elicited complaint: nausea, vomiting and diarrhea Pertinent past history: other ( Crohn's) Onset (ago): day(s) ( 1) Description of vomiting: watery Description of diarrhea: watery Associated nausea: Yes Associated abdominal pain: No Severity: moderate Exacerbating factors: eating Relieving factors: none Context: other ( per family she has had similar episodes on and off for 1) Associated symptoms: loss of appetite, malaise and nausea/vomiting Treatment prior to arrival: other ( she is unsure if this morning they gave her an ODT Zofran) Related Data Home Medications ?Medication ?Instructions ?Recorded ?Confirmed acetaminophen 325 mg tablet 650 mg PO Q6H PRN Pain (Sc angela 10/13/24 10/13/24 Score 1-3) adalimumab 40 mg/0.4 mL 40 mg subcut Q14D 10/13/24 0 10/13/24 subcutaneous pen kit aspirin 81 mg tablet,delayed 81 mg PO DAILY 10/13/24 0 10/13/24 release atorvastatin 40 mg tablet 40 mg PO DAILY 10/13/2412/06 bisacodyl 10 mg rectal suppository 10 mg IL DAILY PRN Constipation 10/13/24 10/13/24 escitalopram oxalate 5 mg tablet 7.5 mg PO DAILY 10/1310/13/24 famotidine 20 mg tablet 20 mg PO BID 10/13/24 furosemide 20 mg tablet 20 mg PO DAILY 10/13/2412/06 magnesium hydroxide 400 mg/5 mL 30 ml PO DAILY PRN Con stipation 10/13/24 10/13/24 oral suspension (Milk of Magnesia) magnesium oxide 400 mg PO BID 10/13/2410/13 metoprolol tartrate 25 mg tablet 12.5 mg PO BEDTIME 10/13/24 multivitamin 1 tab PO DAILY 10/13/2412/06 niacinamide 500 mg tablet 500 mg PO DAILY 10/13/2412/06 ondansetron HCl 4 mg tablet 4 mg PO Q8H PRN Nausea And Vomiting 10/13/24 10/13/24 oxcarbazepine 150 mg tablet 150 mg PO DAILY 10/13/24 0 10/13/24 oxcarbazepine 300 mg tablet 600 mg PO BEDTIME 10/13/24 10/13/24 sennosides 8.6 mg tablet (senna) 8.6 mg PO BID PRN Con stipation 10/13/24 10/13/24 sodium phosphates 19 gram-7 118 ml IL DAILY PRN Consti pation 10/13/24 10/13/24 gram/118 mL enema (Fleet Enema) Previous Rx's ?Medication ?Instructions ?Recorded amoxicillin 875 mg-potassium 1 tab PO Q12H #4 tabs 04/05 clavulanate 125 mg tablet potassium chloride 10 mEq 40 meq (4 x 10 mEq) PO BID # 10 caps 10/17/24 capsule,extended release Allergies Allergy/AdvReac Type Severity Reaction Status Date / Time bee venom protein (honey bee) Allergy Unknown Verified 09/07/25 21:05 droperidol (From Inapsine) Allergy Unknown Verified 09/07/25 21:05 folic acid Allergy Unknown Verified 09/07/25 21:05 Gadolinium-Containing Allergy Unknown Verified 09/07/25 21:05 Contrast Medi meperidine (From Demerol) Allergy Unknown Verified 09/07/25 21:05 Review of Systems 2 Review of Systems: Constitutional : No Fever, No Chills Cardiovascular : No Chest Pain, No SOB, NoEdema Respiratory : No Cough, No Sputum, No Wheezing Gastrointestinal : Positive Nausea, Positive Vomiting, positive Diarrhea, no abdominal Pain, No Hematochezia, No Melena Genitourinary : No Dysuria, No Urinary Frequency, No Hematuria, No Urgency Musculoskeletal : No joint pain, No Myalgias, No Joint Swelling Skin : No Skin Lesions, No rash Neuro : No Weakness, No Numbness, No Dizziness, No Headache All other systems reviewed and are negative. Gastrointestinal: Gastrointestinal: Reports nausea PMFSH Past Medical History Attestation statement: The following information was validated with the patient. Source: old records reviewed Medical History CHF (congestive heart failure) Epilepsy Crohn's disease Deaf Meningioma HLD (hyperlipidemia) HTN (hypertension) Social History Social History (Updated 09/07/25 @ 20:56 by Cheryle Fonseca DO) Patient Tobacco Use Status: Never used Tobacco Advance Directives: No Advance Directives Information Provided: No service: No Physical Exam 2 Vital Signs: Vital Signs: Last Vital Signs Temp 97.9 F 09/07/25 22:00 Pulse 88 09/07/25 22:00 Resp 14 09/07/25 22:00 BP 103/56 L 09/07/25 22:00 Pulse Ox 100 09/07/25 22:00 O2 Del Method Room Air 09/07/25 22:00 BMI result Body Mass Index 20.2 Appearance: Alert. Oriented X3. No acute distress. Eyes: Pupils equal, round and reactive to light. ENT: Pharynx dry mucous membrane Neck: Normal inspection. Neck supple. CVS: Normal heart rate and rhythm. Pulses normal. Respiratory: No respiratory distress. Breath sounds normal. Abdomen: Soft and nontender. she has not grimace to palpation Skin: Skin warm and dry. [place] color. Normal skin turgor. Extremities: No lower extremity edema. Neuro: Oriented X 3. No motor deficit. No sensory deficit. Course Course Course Narrative: 9:50 PM 09/07/2025 (CRISTI MACE): Not a markedly high troponin given lack of ischemic EKG findings that are change from baseline and she has had 24 hours of symptoms. 12:27 AM 09/08/2025 (CRISTI MACE): I discussed the stomach findings with her daughter Elizabet, she does not want me telling her mother unless there is a family member present, she states they do not want to disclose to her the mass until they can come in the morning. She notes she is going to call her sister who is the healthcare proxy as her sister is dealing with a very ill who is also going through cancer treatment. They would like her admitted for fluids, pain control, nausea and vomiting but at this time they do not think they would want to proceed further. She is going to call me back whether or not they want her mother admitted for monitoring Reevaluation(s) Reevaluation #1: 12:41 AM 09/08/2025 (CRISTI ): discussed with daughter Veronica about plan they would like to have her admitted for IVF and zofran. 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 Veronica states she was in contact with Romy of the healthcare proxy to get information and plan of care. I asked if I could reach out but she states Romy is dealing with a very ill in not getting enough sleep and Veronica is going to be managing her mother's care at this time Medications Administered Discontinued Medications Generic Name Dose Route Start Last Admin Trade Name Nilo PRN Reason Stop Dose Admin Lactated Ringer's 500 mls @ 999 mls/hr 09/07/25 21:08 09/08/25 00:14 Lr IV 09/07/25 21:38 Infused .Q31M ONE Infusion Lactated Ringer's 500 mls @ 999 mls/hr 09/08/25 00:30 09/08/25 00:20 Lr IV 09/08/25 01:00 999 mls/hr .Q31M MODESTA Administration Iohexol 85 ml 09/07/25 23:24 09/07/25 23:27 Iohexol 350 Mg/Ml 100 Ml Infus..Btl IV 09/07/25 23:25 85 ml ONCE ONE Administration Ondansetron HCl 4 mg 09/07/25 21:06 09/07/25 21:28 Ondansetron Hcl 4 Mg/2 Ml Vial IVPUSH 09/07/25 21:07 4 mg ONCE ONE Administration Medical Decision Making Medical Decision Making [facility] Narrative: 85-year- old female with past medical history of CHF, epilepsy, Crohn's disease, meningioma, difficulty hearing, hyperlipidemia, hypertension, pneumonia, here with complaint of nausea/vomiting /loose stools x1 day. She has not no fevers or abdominal pain. Other than appearing mildly dry on exam she has no acute abdomen or any other concerning findings on exam. I did discuss with her daughter given her MOLST stating she is DNR/DNI/ do not transport to hospital what their goals of care are: they would like IV fluids, urine, chest x-ray, CT scan of abdomen given this 1 year of symptoms to see if there is a mass causing this. They state that they would not want anything done. They are also aware her meningioma could have grown causing edema and nausea/vomiting but they still do not want anything done. This all seems reasonable. Differential Diagnosis Differential Diagnoses: The differential diagnosis associated with the presentation includes mass, Crohn's, obstruction, viral syndrome, MEMO, dehydration Admission/Observation Consideration of admission/observation: Escalation of care including admission/observation considered Lab Data [facility] Lab Attestation statement: I reviewed the patient's lab results. hemoglobin at baseline 09/07/25 21:17 09/07/25 21:17 Labs: Lab Results 09/07/25 Range/Units 21:17 WBC 7.4 (4.8-10.8) X10*3/uL RBC 3.80 L (4.20-5.50) X10*6/uL Hgb 10.7 L (12.0-16.0) g/dl Hct 34.1 L (37.0-47.0) % MCV 89.7 (80.0-98.0) fL MCH 28.2 (27.0-33.0) pg MCHC 31.4 (31.0-35.0) g/dl RDW 13.9 (11.0-16.0) % Plt Count 236 D (160-400) X10*3/uL MPV 9.1 L (9.4-12.3) fL Immature Gran % (Auto) 0.4 (0.0-0.4) % Neut % (Auto) 66.7 (45-73) % Lymph % (Auto) 24.9 (20-40) % [place] % (Auto) 7.3 (2-11) % Eos % (Auto) 0.4 (0-4) % Baso % (Auto) 0.3 (0-2) % Lymph # (Auto) 1.8 (1.2-4.9) X10*3/uL [place] # (Auto) 0.5 (0.1-1.2) X10*3/uL Eos # (Auto) 0.0 (0.0-0.4) X10*3/uL Baso # (Auto) 0.0 (0.0-0.2) X10*3/uL Abs Immat Gran (auto) 0.03 (0.00-0.03) X10*3/uL Absolute Neuts (auto) 4.9 (2.0-8.3) x10*3/uL Absolute Nucleated RBC 0.000 (0.0-0.012) X10*3/uL Nucleated RBC % (auto) 0.0 (0.0-0.2) /100WBC Sodium 142 (135-145) mmol/L Potassium 4.7 (3.3-5.1) mmol/L Chloride 108 (96-108) mmol/L Carbon Dioxide 25 (22-29) mmol/L Anion Gap 14 (12-20) BUN 12 (9-16) mg/dL Creatinine 0.85 (0.5-1.4) mg/dL Estim Creat Clear Calc 36.8 Estimated GFR > 60 Random Glucose 79 (60-115) mg/dL Calcium 8.6 (8.4-10.2) mg/dL Magnesium 1.6 (1.6-2.6) mg/dL Total Bilirubin 0.3 (0.0-1.0) mg/dL Direct Bilirubin 0.2 (0.0-0.5) mg/dL AST 50 H (5-31) U/L ALT 11 (0-31) U/L Alkaline Phosphatase 169 H (39-117) U/L Troponin I High Sens 20.2 H (<3.5-17.0) ng/L C-Reactive Protein 0.89 H (< or = 0.50) mg/dL Total Protein 6.1 L (6.5-8.0) g/dL Albumin 2.6 L (3.5-5.0) g/dL Lipase 9 (8-78) U/L Influenza Type A (PCR) NEGATIVE (Negative) Influenza Type B (PCR) NEGATIVE (Negative) RSV RNA Qual (PCR) NEGATIVE (Negative) SARS-CoV-2 RNA (RT-PCR) NEGATIVE (Negative) Independent Interpretation I performed an independent interpretation of an: EKG, Plain X-Ray and CT Scan Interpretation: Rate: 86 Rhythm: normal sinus rhythm there is significant artifact but it is similar to prior EKGs Orange: left Normal P waves. Normal LUIS. Normal QRS complex. ST T wave : inverted T-waves V1 and V2, artifact noted, no ST-elevation qTC: 490 prior studies: no significant change from prior The study has been interpreted contemporaneously by me. . Radiology Impression Discussion of test interpretation with radiology: I have reviewed the radiologist's reading. Independent Historian Clinical information obtained from an independent historian. History obtained from or confirmed by: EMS and Other ( daughter) External Record Review External record reviewed: Inpatient record, Outpatient record, Prior outpatient labs and Prior outpatient radiology Discharge Plan Discharge Clinical Impression: Upper gastrointestinal hemorrhage, Gastric mass Nausea & vomiting Qualifiers: Vomiting type: unspecified Qualified Code(s): R11.2 - Nausea with vomiting, unspecified Patient Disposition: Admitted As Inpatient
[2025-09-07 20:58] VITALS: BMI 20.2
[2025-09-07 21:00] VITALS: BP 109/66; PULSE 99; RESP 14; TEMP 36.5; O2SAT 98
--- NOTE | 2025-09-07 21:07 | ECG_ITS ---
Test Reason : WEAKNESS Blood Pressure : */* mmHG Vent. Rate : 86 BPM Atrial Rate : * BPM P-R Int : * ms QRS Dur : 78 ms QT Int : 410 ms P-R-T Axes : * -50 48 degrees QTcB Int : 490 ms Poor data quality Likely sinus rhythm Left axis deviation Inferior infarct , age undetermined Abnormal ECG When compared with ECG of 13-Oct-2024 11:47, Borderline criteria for Lateral infarct are no longer Present Inferior infarct is now Present Referred By: Cheryle Fonseca Electronically Signed By: Kip Obregon
[2025-09-07 21:22] LABS: MANUAL DIFF FLAG NO
[2025-09-07 21:23] LABS: Hematocrit 34.1 % (37.0-47.0); Hemoglobin 10.7 g/dl (12.0-16.0); Imm Gran Abs Auto 0.03 X10*3/uL (0.00-0.03); Imm Gran Pct Auto 0.4 % (0.0-0.4); Lymphocytes Absolute Auto 1.8 X10*3/uL (1.2-4.9); Mean Corpuscular HGB Conc 31.4 g/dl (31.0-35.0); Mean Corpuscular Hemoglobin 28.2 pg (27.0-33.0); Mean Corpuscular Volume 89.7 fL (80.0-98.0); NRBC Abs Auto 0.000 X10*3/uL (0.0-0.012); NRBC Pct Auto 0.0 /100WBC (0.0-0.2); Platelet Count 236 X10*3/uL (160-400); Red Blood Count 3.80 X10*6/uL (4.20-5.50); White Blood Count 7.4 X10*3/uL (4.8-10.8)
[2025-09-07] MEDS: Lactated Ringers 500 ML 999 ML IV (21:29)
[2025-09-07 21:40] LABS: Alanine Aminotransferase 11 U/L (0-31); Albumin Level 2.6 g/dL (3.5-5.0); Alkaline Phosphatase 169 U/L (39-117); Anion Gap 14 (12-20); Aspartate Amino Transferase 50 U/L (5-31); Blood Urea Nitrogen 12 mg/dL (9-16); Calcium 8.6 mg/dL (8.4-10.2); Carbon Dioxide 25 mmol/L (22-29); Chloride 108 mmol/L (96-108); Creatinine Clr Calc Pharmacy 36.8; Estimated Glomerular Filt Rate > 60; Lipase 9 U/L (8-78); Magnesium 1.6 mg/dL (1.6-2.6); Potassium 4.7 mmol/L (3.3-5.1); Sodium 142 mmol/L (135-145); Total Protein 6.1 g/dL (6.5-8.0)
[2025-09-07 21:47] LABS: Troponin-I High Sensitivity 20.2 ng/L (<3.5-17.0)
--- OUTSIDE RECORDS SUMMARY | 2025-09-07 21:54 | XMS_ITS | Encounter Summary ---
Author Organization [facility] Address [address] [place] [address] Care Team Providers Care Tomato Pulper Operator Name Role Phone Yanelis Montgomery NP Primary Care Provider [phone]- [phone] Encounter Details Date Type Department Care Team (Latest Contact Info) Description 06/19/2025 Lab Requisition [facility] Lab [address] [facility] [place] [address] Daron Randhawa MD [address] [place] [address] Gastrointestinal hemorrhage, unspecified Social History Tobacco Use Types Packs/Day Years Used Date Smoking Tobacco: Never Assessed Comments Unknown Sex and Gender Information Value Date Recorded Sex Assigned at Not on file Legal Sex Female 6:27 AM EST Gender Identity Not on file Sexual Orientation Not on file documented as of this encounter Plan of Treatment Not on file documented as of this encounter Procedures Procedure Name Priority Date/Time Associated Diagnosis Comments COMPLETE BLOOD COUNT Routine 06/19/2025 6:18 AM EDT Gastrointestinal hemorrhage, unspecified BASIC METABOLIC PANEL Routine 06/19/2025 6:18 AM EDT Gastrointestinal hemorrhage, unspecified documented in this encounter Results * (ABNORMAL) Basic metabolic panel (06/19/2025 6:18 AM EDT) Sodium 143 133 - 145 mmol/L LAB CHEMISTRY METHOD 06/19/2025 1:47 PM EDT [facility] Potassium 4.9 3.5 - 5.5 mmol/L LAB CHEMISTRY METHOD 06/19/2025 1:47 PM EDT [facility] Chloride 113(H) 96 - 110 mmol/L LAB CHEMISTRY METHOD 06/19/2025 1:47 PM EDT [facility] CO2 22 21 - 32 mmol/L LAB CHEMISTRY METHOD 06/19/2025 1:47 PM [facility] Anion Gap 8 3 - 11 LAB CHEMISTRY METHOD 06/19[facility]2025 [facility] Glucose 61(L) 70 - 100 mg/dL LAB CHEMISTRY METHOD 06/19/2025 1:47 PM EDT [facility] BUN 24 5 - 25 mg/dL LAB CHEMISTRY METHOD 06/19/2025 1:47 PM [facility] Creatinine 0.69 0.50 - 1.10 mg/dL LAB CHEMISTRY METHOD 06/19/2025 1:47 PM [facility] eGFR 84 >=60 mL/min/1. 73m2 LAB CHEMISTRY METHOD 06/19/2025 1:47 PM EDT [facility] Comment:Calculation based on the Chronic Kidney Disease Epidemiology Collaboration (CKD-EPI) equation refit without adjustment for race. BUN/Creatinine Ratio 34.8 LAB CHEMISTRY METHOD 06/19/2025 1:47 PM [facility] Calcium 8.9 8.5 - 10.5 mg/dL LAB CHEMISTRY METHOD 06/19/2025 1:47 PM [facility] Blood Venous blood specimen / Unknown Venipuncture / Unknown 06/19/2025 6:18 AM EDT 06/19/2025 11:28 AM EDT us Daron Randhawa MD LAB BLOOD ORDERABLES Final Resul t [facility] [address] [place] [address], [place] [phone] * (ABNORMAL) Complete blood count (06/19/2025 6:18 AM EDT) WBC 11.1(H) 4.8 - 10.8 K/mcL LAB HEMETOLOGY METHOD 06/19/2025 12:06 PM [facility] RBC 3.10(L) 3.80 - 4.80 M/mcL LAB HEMETOLOGY METHOD 06/19/2025 12:06 PM [facility] Hemoglobin 9.7(L) 11.5 - 16.0 g/dL LAB HEMETOLOGY METHOD 06/19/2025 12:06 PM [facility] Hematocrit 30.7(L) 35.0 - 47.0 % LAB HEMETOLOGY METHOD 06/19/2025 12:06 PM [facility] MCV 100.3(H) 79.0 - 98.0 FL LAB HEMETOLOGY METHOD 06/19/2025 12:06 PM [facility] MCH 31.7 27.0 - 32.0 pcg LAB HEMETOLOGY METHOD 06/19/2025 12:06 PM [facility] MCHC 31.6(L) 32.0 - 37.0 g/dL LAB HEMETOLOGY METHOD 06/19/2025 12:06 PM [facility] RDW 14.6 11.0 - 15.0 % LAB HEMETOLOGY METHOD 06/19/2025 12:06 PM [facility] Platelets 262 130 - 400 K/[facility] LAB HEMETOLOGY METHOD 06/19/2025 12:06 PM [facility] MPV 11.2(H) 7.0 - 11.0 FL LAB HEMETOLOGY METHOD 06/19/2025 12:06 PM [facility] NRBC 0.0 <1.0 % LAB HEMETOLOGY METHOD 06/19/2025 12:06 PM [facility] NRBC Absolute 0.00 <0.10 K/[facility] LAB HEMETOLOGY METHOD 06/19/2025 12:06 PM EDT [facility] Blood Venous blood specimen / Unknown Venipuncture / Unknown 06/19/2025 6:18 AM EDT 06/19/2025 10:40 AM EDT us Daron Randhawa MD LAB BLOOD ORDERABLES Final Resul t [facility] [address] [place] [address], documented in this encounter Visit Diagnoses Diagnosis Gastrointestinal hemorrhage, unspecified documented in this encounter Care Teams Tomato Pulper Operator Relationship Specialty Start Date End Date Yanelis Montgomery NP [address] [place] [id number] PCP - General Internal Medicine 03/18/22 documented as of this encounter
--- OUTSIDE RECORDS SUMMARY | 2025-09-07 21:54 | XMS_ITS | Encounter Summary ---
Author Organization [facility] Address [id number] [place] [address] Care Team Providers Care Personnel Arbitrator Name Role Phone Yanelis Montgomery NP Primary Care Provider [phone]- [phone] Encounter Details Date Type Department Care Team (Late st Contact Info) Description 06/22/2025 Lab Requisition [facility] [address] [facility] [place] [address] Daron Randhawa MD [address] [place], [place] [id number] Heart failure, unspecified (CMS/HCC V24, CMS/HCC V28); Crohn's disease, unspecified, with unspecified complications (CMS/HCC V24, CMS/HCC V28) Social History Tobacco Use Types Packs/Day Years [...] Associated Diagnosis Comments COMPLETE BLOOD COUNT Routine 06/23/2025 6:20 AM EDT Heart failure, unspecified (CMS/HCC V24, CMS/HCC V28) Crohn's disease, unspecified, with unspecified complications (CMS/HCC V24, CMS/HCC V28) BASIC METABOLIC PANEL Routine 06/23/2025 6:20 AM EDT Heart failure, unspecified (CMS/HCC V24, CMS/HCC V28) Crohn's disease, unspecified, with unspecified complications (CMS/HCC V24, CMS/HCC V28) documented in this encounter Results * (ABNORMAL) Basic metabolic panel (06/23/2025 6:20 AM EDT) Sodium 142 133 - 145 mmol/L LAB CHEMISTRY METHOD 06/23/2025 11:[address] [facility] Potassium 4.7 3.5 - 5.5 mmol/L LAB CHEMISTRY METHOD 06/23/2025 11:[address] [facility] Chloride 116(H) 96 - 110 mmol/L LAB CHEMISTRY METHOD 06/23/2025 11:[address] [facility] CO2 18(L) 21 - 32 mmol/L LAB CHEMISTRY METHOD 06/23/2025 11:[address] [facility] Anion Gap 8 3 - 11 LAB CHEMISTRY METHOD 06/23/2025 11:[address] [facility] Glucose 59(L) 70 - 100 mg/dL LAB CHEMISTRY METHOD 06/23/2025 11:[address] [facility] BUN 11 5 - 25 mg/dL LAB CHEMISTRY METHOD 06/23/2025 11:[address] [facility] Creatinine 0.55 0.50 - 1.10 mg/dL LAB CHEMISTRY METHOD 06/23/2025 11:[address] [facility] eGFR 89 >=60 mL/min/1. 73m2 LAB CHEMISTRY METHOD 06/23/2025 11:[address] [facility] Comment:Calculation based on the Chronic Kidney Disease Epidemiology Collaboration (CKD-EPI) equation refit without adjustment for race. BUN/Creatinine Ratio 20.0 LAB CHEMISTRY METHOD 06/23/2025 11:[address] [facility] Calcium 8.4(L) 8.5 - 10.5 mg/dL LAB CHEMISTRY METHOD 06/23/2025 11:[address] [facility] Blood Venous blood specimen / Unknown Venipuncture / Unknown 06/23/2025 6:20 AM EDT 06/23/2025 10:37 AM EDT us Daron Randhawa MD LAB BLOOD ORDERABLES Final Resul t [facility] [address] [place] [address], [place] [phone] * (ABNORMAL) Complete blood count (06/23/2025 6:20 AM EDT) WBC 7.7 4.8 - 10.8 K/mcL LAB HEMETOLOGY METHOD 06/23/2025 10:51 AM EDT [facility] RBC 2.70(L) 3.80 - 4.80 M/mcL LAB HEMETOLOGY METHOD 06/23/2025 10:51 AM EDT [facility] Hemoglobin 8.5(L) 11.5 - 16.0 g/dL LAB HEMETOLOGY METHOD 06/23/2025 10:51 AM EDT [facility] Hematocrit 26.9(L) 35.0 - 47.0 % LAB HEMETOLOGY METHOD 06/23/2025 10:51 AM EDT [facility] MCV 100.7(H) 79.0 - 98.0 FL LAB HEMETOLOGY METHOD 06/23/2025 10:[address] [facility] MCH 31.8 27.0 - 32.0 pcg LAB HEMETOLOGY METHOD 06/23/2025 10:51 AM EDT [facility] MCHC 31.6(L) 32.0 - 37.0 g/dL LAB HEMETOLOGY METHOD 06/23/2025 10:51 AM EDT [facility] RDW 14.9 11.0 - 15.0 % LAB HEMETOLOGY [facility]23[facility]25 [facility] Platelets 220 130 - 400 K/mcL LAB HEMETOLOGY METHOD 06/23/2025 10:51 AM EDT [facility] MPV 11.0 7.0 - 11.0 FL LAB HEMETOLOGY METHOD 06/23/2025 10:51 AM EDT [facility] NRBC 0.0 <1.0 % LAB HEMETOLOG METHOD 06/23/2025 10:51 AM EDT [facility] NRBC Absolute 0.00 <0.10 K/mcL LAB HEMETOLOGY METHOD 06/23/2025 10:51 AM EDT [facility] Blood Venous blood specimen / Unknown Venipuncture / Unknown 06/23/2025 6:20 AM EDT 06/23/2025 10:37 AM EDT us Daron Randhawa MD LAB BLOOD ORDERABLES Final Resul t [facility] [address] [place] [address], documented in this encounter Visit Diagnoses Diagnosis Heart failure, unspecified (CMS/HCC V24, CMS/HCC V28) Heart failure, unspecified Crohn's disease, unspecified, with unspecified complications (CMS/HCC V24, CMS/HCC V28) documented in this encounter Care Teams Personnel Arbitrator Relationship Specialty Start Date End Date Yanelis Montgomery NP [address] [place] [id number] PCP - General Internal Medicine 03/18/22 documented as of this encounter
--- OUTSIDE RECORDS SUMMARY | 2025-09-07 21:54 | XMS_ITS | Encounter Summary ---
Author Organization [facility] Address [address] [place] [address] Care Team Providers Care Artificial Flowers Dyer Name Role Phone Yanelis Montgomery NP Primary Care Provider [phone] Encounter Details Date Type Department Care Team (Late st Contact Info) Description 03/14/2025 Lab Requisition [facility] - Main Lab [address] [facility] [place] [address] Daron Randhawa MD [address] [place] [address] Other specified hypothyroidism Social History Tobacco Use Types Packs/Day Years [...] Procedure Name Priority Date/Time Associated Diagnosis Comments THYROID STIMULATING HORMONE Routine 03/15/2025 6:44 AM EDT Other specified hypothyroidism THYROXINE FREE Routine 03/15/2025 6:44 AM EDT Other specified hypothyroidism documented in this encounter Results * (ABNORMAL) Thyroid stimulating hormone (03/15/2025 6:44 AM EDT) TSH <0.05(L) 0.40 - 4.00 mcIU/mL LAB CHEMISTRY METHOD 03/15/2025 11:02 AM EDT [facility] Blood Venous blood specimen / Unknown Venipuncture / Unknown 03/15/2025 6:44 AM EDT 03/15/2025 10:01 AM EDT Daron Randhawa MD LAB BLOOD ORDERABLES Final Resul t Performing Organization Address City/[facility]/ZIP Co de Phone Number [facility] [address] [place] [address], [place] [phone] * Thyroxine free (03/15/2025 6:44 AM EDT) Free T4 1.22 0.70 - 1.80 ng/dL LAB CHEMISTRY METHOD 03/15/2025 11:02 AM EDT [facility] Blood Venous blood specimen / Unknown Venipuncture / Unknown 03/15/2025 6:44 AM EDT 03/15/2025 10:01 AM EDT Daron Randhawa MD LAB BLOOD ORDERABLES Final Resul t Performing Organization Address [facility]/ZIP Co de Phone Number [facility] [address] [place] [address], [place] [phone] documented in this encounter Visit Diagnoses Diagnosis Other specified hypothyroidism documented in this encounter Care Teams Artificial Flowers Dyer Relationship Specialty Start Date End Date Yanelis Montgomery NP [address] [place] [address] PCP - General Internal Medicine 03/18/22 documented as of this encounter
--- OUTSIDE RECORDS SUMMARY | 2025-09-07 21:54 | XMS_ITS | Encounter Summary ---
Author Organization [facility] Address [address] [facility] [address] [place] [address] Phone Care Team Providers Care Sustainable Agriculture Faculty Name Role Phone Yanelis Montgomery CNP Primary Care Provide r Dirk Guillory MD Unavailable [phone] To Matthews DO Unavailable Unknown, Unknown Primary Care Provider Raleigh Uribe MD Primary Care Provider + Encounter Details Date Type Department Care Team (Late st Contact Info) Description 07/12/2023 Procedure Pass [facility], Ct Scan - [address] [id number] Social History Tobacco Use Types Packs/Day Years Used Date Smoking Tobacco: Former Cigarettes 0.3 47 1 12/02/1953 - 10/01/2001 Smokeless Tobacco: Never Alcohol Use Standard Drinks/Week Comments Not Currently 0 (1 standard drink = 0.6 oz pur e alcohol) Home Health Assessment: Transportation Answer Date Recorded Lack of Transportation (Medical) No 07/08/2023 Lack of Transportation (Non-Medical) No 07/08/2023 Patient Unable or Declines to Respond No 07/08/2023 Child or Family Care Answer Date Record ed Do you have problems with on e of the following making it difficult for you to work, study, or receive health care? No 10/01/2021 Education Answer Date Recorded Are you interested in help w ith more adult education (for example, completing high school, GED, job training, learning the [place] language, technical skills, or developing parenting skills)? No 10/01/2021 Food Answer Date Recorded Within the past 6 months we worried whether our food would run out before we got money to buy more. Never True 10/01/2021 Within the past 6 months the food we bought just didn't last and we didn't have enough money to get more. Never True Residential Stability Answer Date Recor ded What is your housing situation today? I have jose sing 10/01/2021 How many times have you move d in the past 12 months? Zero (I did not move) 10/01/2021 Paying for Meds Answer Date Recorded Do you have trouble paying for medicines? No 10/01/2021 Paying Utility Bills Answer Date Record ed Do you have trouble paying your heating or elect ricity bill? No 10/01/2021 Transportation Answer Date Recorded Has the lack of transportati on kept you from medical appointments or from getting medications? No 10/01/2021 Digital Access Answer Date Recorded No 03/07/2023 No 03/07/2023 Reliable internet access at home? Not on file 03/07/2023 Device with a working camera? Not on file Comments Unknown Sex and Gender Information Value Date Recorded Sex Assigned at Female 05/11/2023 6:17 PM EDT Legal Sex Female 10:41 AM EDT Gender Identity Female 05/11/2023 6:17 PM EDT Sexual Orientation Straight 05/11/2023 6: 17 PM EDT documented as of this encounter Functional Status * Calculated C-SSRS Risk Score (Lifetime/Recent) Answer Date of Assessment Author No Risk Indicated 07/12/2023 2:45 PM EDT Carson Hinojosa RN * Terrell Suicide Severity Rating Scale (Screener/Recent Self-Report) Question Answer Date of Assessment Author 1. Wish to be (Past 1 Month) No 023 2:45 PM EDT Soo Hinojosa, JASON 2. Non-Specific Active Suici rosalia Thoughts (Past 1 Month) No 07/12/2023 2:45 PM EDT Soo Hinojosa RN 6. Suicidal Behavior (Lifetime) No 3 2:45 PM EDT Soo Hinojosa RN documented as of this encounter Plan of Treatment Upcoming Encounters Date Type Department Care Team (Late st Contact Info) Description 01/04/2026 10:30 AM EDT Office Visit [facility] Neurology [address] [place] [address] Km Dash MD 22 [facility], 2nd [place] [address] [email or web address] documented as of this encounter Visit Diagnoses Not on filedocumented in this encounter Additional Health Concerns Infection Onset Date Last Indicated Resolved Time CoV-Risk 09/16/2023 09/22/2023 10/03/2023 1:22 AM EST Assessment Noted Time PHQ-9 Depression Total Score: 1 08/19/20 2:22 PM EST PHQ-2 Depression Total Score: 0 01/14/20 2:00 PM EDT documented as of this encounter Care Teams Sustainable Agriculture Faculty Relationship Specialty Start Date End Date Yanelis Montgomery CNP [address] [place] [address] [email or web address] PCP - General Family Medicine 08/21/21 12/13/23 Unknown, Unknown, MD PCP - General 12/14/23 01/03/24 Raleigh Cook MD [address] [place] [address] PCP - General Internal Medicine 01/04/24 Dirk Guillory MD [address] [place] [address] Medical Oncology 11/12/21 To Matthews DO [address] [place] [address] [email or web address] Insurance Assigned Provider 01/16/24 10/17/24 documented as of this encounter Additional Source Comments The information contained in this document represents components of the legal health record. It is not the complete legal health record.[facility]
--- OUTSIDE RECORDS SUMMARY | 2025-09-07 21:54 | XMS_ITS | Encounter Summary ---
Author Organization [facility] Address [address] [facility] [address] [place] [address] Phone Care Team Providers Care Supervisor Cutting And Sewing Room Name Role Phone Yanelis Montgomery [facility] Primary Care Provide r Dirk Guillory MD Unavailable [phone] oT Matthews DO Unavailable Magda Clement OT Unavailable [phone] Magda Clement OT Unavailable [phone] Unknown, Unknown Primary Care Provider Raleigh Uribe MD Primary Care Provider + Encounter Details Date Type Department Care Team (Late st Contact Info) Description 05/12/2023 Procedure Pass [facility] Admitting Dept Virtual Department [address] [place], [place] [phone] Social History Tobacco Use Types Packs/Day Years Used Date Smoking Tobacco: Former Cigarettes 0.3 47 1 12/02/1953 - 10/01/2001 Smokeless Tobacco: Never Alcohol Use Standard Drinks/Week Comments Not Currently 0 (1 standard drink = 0.6 oz pur e alcohol) Child or Family Care Answer Date Record ed Do you have problems with on e of the following making it difficult for you to work, study, or receive health care? No 10/01/2021 Education Answer Date Recorded Are you interested in help w ith more adult education (for example, completing high school, GED, job training, learning the Swiss language, technical skills, or developing parenting skills)? [...] PM EDT documented as of this encounter Plan of Treatment Upcoming Encounters Date Type Department Care Team (Late st Contact Info) Description 01/04/2026 10:30 AM EDT Office Visit [facility] Neurology [address] [place] [address] Km Dash MD [address] [facility], 2nd [place] [address] [email or web address] documented as of this encounter Visit Diagnoses Not on filedocumented in this encounter Additional Health Concerns Infection Onset Date Last Indicated Resolved Time CoV-Risk 09/16/2023 09/22/2023 10/03/2023 1:22 AM EST Assessment Noted Time PHQ-9 Depression Total Score: 1 08/19/20 2:22 PM EST PHQ-2 Depression Total Score: 0 01/14/20 2:00 PM EDT documented as of this encounter Care Teams Supervisor Cutting And Sewing Room Relationship Specialty Start Date End Date Yanelis Montgomery CNP [address] [place] [address] [email or web address] PCP - General Family Medicine 08/21/21 12/13/23 Unknown, Kasia, MD PCP - General 12/14/23 01/03/24 Raleigh Cook MD [address] [place] [address] PCP - General Internal Medicine 01/04/24 Dirk Guillory MD [address] [place] [address] Medical Oncology 11/12/21 To Matthews DO [address] [place] [address] Insurance Assigned Provider 01/16/24 10/17/24 Magda Clement, OT [address] [place] [address] Transitions Lift SupervisorSales Superintendent Therapy 05/12/23 05/13/23 Magda Clement, OT [address] [place] [address] Transitions Lift SupervisorSales Superintendent Therapy 07/02/23 07/05/23 documented as of this encounter Additional Source Comments The information contained in this document represents components of the legal health record. It is not the complete legal health record.[facility]
--- OUTSIDE RECORDS SUMMARY | 2025-09-07 21:54 | XMS_ITS | Encounter Summary ---
Author Organization [facility] Address [address] [place] [address] Care Team Providers Care Motion Picture Cameraman Name Role Phone Yanelis Montgomery NP Primary Care Provider [phone] Encounter Details Date Type Department Care Team (Late st Contact Info) Description 01/26/2025 Lab Requisition [facility] - Main Lab [address] [facility] [place] [address] Daron Randhawa MD [address] [place], [place] [id number] Chronic kidney disease, stage 3 unspecified (CMS/HCC V24, CMS/HCC V28); Hypothyroidism, unspecified Social History Tobacco Use Types Packs/Day [...] Associated Diagnosis Comments COMPLETE BLOOD COUNT Routine 01/26/2025 4:33 AM EDT Chronic kidney disease, stage 3 unspecified (CMS/HCC V24, CMS/HCC V28) Hypothyroidism, unspecified THYROXINE FREE Routine 01/26/2025 4:33 AM EDT Chronic kidney disease, stage 3 unspecified (CMS/HCC V24, CMS/HCC V28) Hypothyroidism, unspecified documented in this encounter Results * Thyroxine free (01/26/2025 4:33 AM EDT) Free T4 0.72 0.70 - 1.80 ng/dL LAB CHEMISTRY METHOD 01/26/2025 9:[address] [facility] Blood Venous blood specimen / Unknown Venipuncture / Unknown 01/26/2025 4:33 AM EDT 01/26/2025 7:10 AM EDT us Daron Randhawa MD LAB BLOOD ORDERABLES Final Resul t [facility] [address] [place] [address], [place] [phone] * (ABNORMAL) Complete blood count (01/26/2025 4:33 AM EDT) WBC 7.2 4.8 - 10.8 K/mcL LAB HEMETOLOGY METHOD 01/26/2025 7:34 AM [facility] RBC 3.10(L) 3.80 - 4.80 M/mcL LAB HEMETOLOGY METHOD 01/26/2025 7:34 AM [facility] Hemoglobin 10.1(L) 11.5 - 16.0 g/dL LAB HEMETOLOGY METHOD 01/26/2025 7:34 AM [facility] Hematocrit 30.9(L) 35.0 - 47.0 % LAB HEMETOLOGY METHOD 01/26/2025 7:34 AM [facility] MCV 100.0(H) 79.0 - 98.0 FL LAB HEMETOLOGY METHOD 01/26/2025 7:34 AM [facility] MCH 32.7(H) 27.0 - 32.0 pcg LAB HEMETOLOGY METHOD 01/26/2025 7:34 AM [facility] MCHC 32.7 32.0 - 37.0 g/dL LAB HEMETOLOGY METHOD 01/26/2025 7:34 AM [facility] RDW 15.8(H) 11.0 - 15.0 % LAB HEMETOLOGY METHOD 01/26/2025 7:[address] [facility] Platelets 262 130 - 400 K/mcL LAB HEMETOLOGY METHOD 01/26/2025 7:[address] [facility] MPV 10.0 7.0 - 11.0 FL LAB HEMETOLOGY METHOD 01/26/2025 7:[address] [facility] NRBC 0.0 <1.0 % LAB HEMETOLOGY METHOD 01/26/2025 7:[address] [facility] NRBC Absolute 0.00 <0.10 K/mcL LAB HEMETOLOGY METHOD 01/26/2025 7:[address] [facility] Blood Venous blood specimen / Unknown Venipuncture / Unknown 01/26/2025 4:33 AM EDT 01/26/2025 7:10 AM EDT us Daron Randhawa MD LAB BLOOD ORDERABLES Final Resul t [facility] [address] [place] [address], documented in this encounter Visit Diagnoses Diagnosis Chronic kidney disease, stage 3 unspecified (CMS/HCC V24, CMS/HCC V28) Hypothyroidism, unspecified documented in this encounter Care Teams Motion Picture Cameraman Relationship Specialty Start Date End Date Yanelis Montgomery NP [address] [place] [address] PCP - General Internal Medicine 03/18/22 documented as of this encounter
--- OUTSIDE RECORDS SUMMARY | 2025-09-07 21:54 | XMS_ITS | Encounter Summary ---
Author Organization [facility] Address [address] [facility] [address] [place] [address] Phone Care Team Providers Care Oliving Machine Operator Name Role Phone Yanelis Montgomery [facility] Primary Care Provide r Dirk Guillory MD Unavailable [phone] To Matthews DO Unavailable Magda Clement OT Unavailable [phone] Magda Clement OT Unavailable [phone] Unknown, Unknown Primary Care Provider Raleigh Uribe MD Primary Care Provider + Encounter Details Date Type Department Care Team (Late st Contact Info) Description 01/22/2022 Procedure Pass [address] [place] [address] Social History Tobacco Use Types Packs/Day Years [...] high school, GED, job training, learning the Italian language, technical skills, or developing parenting skills)? [...] appointments or from getting medications? No 10/01/2021 Comments Unknown Sex and Gender Information Value [...] Description 01/04/2026 10:30 AM EDT Office Visit [facility] Neurology [address] [place] [address] [place] [address] Km Dash MD [address] [place] [address], 2nd [place] [address] [email or web address] documented as of this encounter Visit Diagnoses Not on filedocumented in this encounter Additional Health Concerns Infection Onset Date Last Indicated Resolved Time CoV-Risk 09/16/2023 09/22/2023 10/03/2023 1:22 AM EST Assessment Noted Time PHQ-2 Depression Total Score: 0 10/01/20 1:55 PM EST documented as of this encounter Care Teams Oliving Machine Operator Relationship Specialty Start Date End Date Yanelis Montgomery KarenYULY [address] [place] [address] PCP - General Family Medicine 08/21/21 12/13/23 Unknown, Kasia, MD PCP - General 12/14/23 01/03/24 Raleigh Cook MD [address] [place] [address] PCP - General Internal Medicine 01/04/24 Dirk Guillory MD [address] [place] [address] [email or web address] Medical Oncology 11/12/21 To Matthews DO [address] [place] [address] [email or web address] Insurance Assigned Provider 01/16/24 10/17/24 Magda Clement, OT [address] [place] [address] [email or web address] Transitions Autism SpecialistLiquified Natural Gas Specialist Therapy 05/12/23 05/13/23 Magda Clement, OT [address] [place] [address] [email or web address] Transitions Autism SpecialistLiquified Natural Gas Specialist Therapy 07/02/23 07/05/23 documented as of this encounter Additional Source Comments The information contained in this document represents components of the legal health record. It is not the complete legal health record.[facility]
--- OUTSIDE RECORDS SUMMARY | 2025-09-07 21:54 | XMS_ITS | Encounter Summary ---
Author Organization [facility] Address [address] [facility] [address] [place] [address] Phone Care Team Providers Care Emergency Room Registered Nurse Name Role Phone Yanelis Montgomery [facility] Primary Care Provide r Dirk Guillory MD Unavailable [phone] To Matthews DO Unavailable Magda Clement OT Unavailable [phone] Magda Clement OT Unavailable [phone] Unknown, Unknown Primary Care Provider Raleigh Uribe MD Primary Care Provider + Encounter Details Date Type Department Care Team (Late st Contact Info) Description 01/30/2023 Procedure Pass [address] [place] [address] Social History Tobacco Use Types Packs/Day Years [...] high school, GED, job training, learning the Ivorian language, technical skills, or developing parenting skills)? [...] Description 01/04/2026 10:30 AM EDT Office Visit [facility] Neurology [address] [place] [address] [place] [address] Km Dash MD [address] [place] [address], 2nd [place] [address] [email or web address] documented as of this encounter Visit Diagnoses Not on filedocumented in this encounter Additional Health Concerns Infection Onset Date Last Indicated Resolved Time CoV-Risk 09/16/2023 09/22/2023 10/03/2023 1:22 AM EST Assessment Noted Time PHQ-9 Depression Total Score: 1 08/19/20 22 2:22 PM EST PHQ-2 Depression Total Score: 0 01/14/20 2:00 PM EDT documented as of this encounter Care Teams Emergency Room Registered Nurse Relationship Specialty Start Date End Date Yanelis Montgomery CNP [address] [place] [address] PCP - General Family Medicine 08/21/21 12/13/23 Unknown, Kasia, MD PCP - General 12/14/23 01/03/24 Raleigh Cook MD [address] [place] [address] PCP - General Internal Medicine 01/04/24 Dirk Guillory MD [address] [place] [address] Medical Oncology 11/12/21 To Matthews DO [address] [place] [address] Insurance Assigned Provider 01/16/24 10/17/24 Magda Clement, OT [address] [place] [address] Transitions Ceo & Board DirectorHelper Animal Laboratory Therapy 05/12/23 05/13/23 Magda Clement, OT [address] [place] [address] Transitions Ceo & Board DirectorHelper Animal Laboratory Therapy 07/02/23 07/05/23 documented as of this encounter Additional Source Comments The information contained in this document represents components of the legal health record. It is not the complete legal health record.[facility]
--- OUTSIDE RECORDS SUMMARY | 2025-09-07 21:54 | XMS_ITS | Encounter Summary ---
Author Organization [facility] Address [address] [facility] [address] [place] [address] Phone Care Team Providers Care Heavy Equipment Operator/Paver Name Role Phone Yanelis Montgomery CNP Primary Care Provide r Dirk Guillory MD Unavailable [phone] To Matthews DO Unavailable Magda Clement OT Unavailable [phone] Magda Clement OT Unavailable [phone] Unknown, Unknown Primary Care Provider Raleigh Uribe MD Primary Care Provider + Encounter Details Date Type Department Care Team (Late st Contact Info) Description 04/17/2022 Transcribe Orders [address] [id number] Yanelis Montgomery, [address] [place] [address] [email or web address] Social History Tobacco Use Types Packs/Day Years [...] high school, GED, job training, learning the Tajik language, technical skills, or developing parenting skills)? [...] your housing situation today? I have jose clark 10/01/2021 How many times have you move [...] 01/04/2026 10:30 AM EDT Office Visit [facility] Neurology [address] [place] [address] Km Dash MD [address] [facility], [address] [place] [address] [email or web address] documented as of this encounter Visit Diagnoses Not on filedocumented in this encounter Additional Health Concerns Infection Onset Date Last Indicated Resolved Time CoV-Risk 09/16/2023 09/22/2023 10/03/2023 1:22 AM EST Assessment Noted Time PHQ-2 Depression Total Score: 0 10/01/20 1:55 PM EST documented as of this encounter Care Teams Heavy Equipment Operator/Paver Relationship Specialty Start Date End Date Valentina Yanelis KarenYULY [address] [place] [address] PCP - General Family Medicine 08/21/21 12/13/23 Unknown, Unknown, MD PCP - General 12/14/23 01/03/24 Raleigh Cook MD [address] [place] [address] PCP - General Internal Medicine 01/04/24 Dirk Guillory MD [address] [place] [address] Medical Oncology 11/12/21 To Matthews DO [address] [place] [address] Insurance Assigned Provider 01/16/24 10/17/24 Magda Clement, OT [address] [place] [address] Transitions Phlebotomy CoordinatorLabel Fuser Tender Therapy 05/12/23 05/13/23 Magda Clement, OT [address] [place] [address] [email or web address] Transitions Phlebotomy CoordinatorLabel Fuser Tender Therapy 07/02/23 07/05/23 documented as of this encounter Additional Source Comments The information contained in this document represents components of the legal health record. It is not the complete legal health record.[facility]
--- OUTSIDE RECORDS SUMMARY | 2025-09-07 21:54 | XMS_ITS | Clinical Summary ---
Author Organization [employer] Address [address] [facility] 7 [place] [address] Care Team Providers Care Physics Teacher Name Role Phone Unavailable Primary Care Provider Unavailabl e Immunizations Immunization Administration Dates Next Due Pfizer Covid-19 Vaccine 12+ 07/29/2023 Social History Tobacco Use Types Packs/Day Years Used Date Smoking Tobacco: Never Assessed Comments Unknown Sex and Gender Information Value Date Recorded Sex Assigned at Female 07/29/2023 3:29 PM EDT Legal Sex Female 2:00 PM EDT Gender Identity Female 07/29/2023 3:29 PM EDT Sexual Orientation Straight 07/29/2023 3: 29 PM EDT Plan of Treatment Health Maintenance Due Date Last Done Comments Depression Screening 1940 SDOH Screening 1940 Alcohol/Substance Use Screening 1950 Tobacco Screening 1952 Zoster Vaccines (2 of 3) 01/14/2012 11/19/2011 RSV Patients and Patients Aged 60 years or older (1 - 1-dose 75+ series) 2013 Hepatitis B Vaccines (2 of 3 - 19+ 3-dose series) 12/21/2017 11/23/2017 COVID-19 Vaccine ( season) 2025 07/29/2023, 07/16/2022, 09/12/2021, Additional history exists Influenza Vaccine (#1) 2025 , 07/16/2022, 08/07/2021, Additional history exists Lipid Panel 07/01/2028 07/01/2023 DTaP/Tdap/Td Vaccines (4 - Td or Tdap) 08/19/2032 08/19/2022, 08/19/2022, 11/06/2011, Additional history exists Pneumococcal Vaccine: 50+ Years Completed 08/23/2015, 11/06/2011, 08/12/2004 Hepatitis A Vaccines Aged Out 05/25/2018, 12/22/19 18 No longer eligible based on patient's age to complete this topic HIB Vaccines Aged Out No longer eligi ble based on patient's age to complete this topic HPV Vaccines Aged Out No longer eligi ble based on patient's age to complete this topic IPV Vaccines Aged Out No longer eligi ble based on patient's age to complete this topic Meningococcal B Vaccine Aged Out No l onger eligible based on patient's age to complete this topic Meningococcal Vaccine Aged Out No dilcia alex eligible based on patient's age to complete this topic RSV under 20 months Aged Out No longe r eligible based on patient's age to complete this topic Rotavirus Vaccines Aged Out No longer eligible based on patient's age to complete this topic Insurance [place] [address] [place] [phone] [facility]
--- OUTSIDE RECORDS SUMMARY | 2025-09-07 21:54 | XMS_ITS | Encounter Summary ---
Author Organization [facility] Address [address] [place] [address] Care Team Providers Care Business Services Analyst Name Role Phone Yanelis Montgomery NP Primary Care Provider [phone] Encounter Details Date Type Department Care Team (Late st Contact Info) Description 12/05/2024 Lab Requisition [facility] - Main Lab [address] [facility] [place] [address] Daron Randhawa MD [address] [place], [place] [id number] Hypothyroidism, unspecified; Chronic kidney disease, stage 3 unspecified (CMS/HCC V24, CMS/HCC V28) Social History Tobacco [...] Date/Time Associated Diagnosis Comments THYROID STIMULATING HORMONE STAT 12/05/2024 12:26 PM EST Hypothyroidism, unspecified Chronic kidney disease, stage 3 unspecified (CMS/HCC) AMMONIA STAT 12/05/2024 12:26 PM EST Hypothyroidism, unspecified Chronic kidney disease, stage 3 unspecified (CMS/HCC) documented in this encounter Results * Ammonia (12/05/2024 12:26 PM EST) Ammonia 22 11 - 35 mcmol/L LAB CHEMISTRY METHOD 12/05/2024 3:33 PM EST [facility] Comment:Hemolysis present Blood Venous blood specimen / Unknown Venipuncture / Unknown 12/05/2024 12:26 PM EST 12/05/2024 1:57 PM EST Daron Randhawa MD LAB BLOOD ORDERABLES Final Resul t Performing Organization Address [facility]/ZIP Co de Phone Number [facility] [address] [place] [address], [place] [phone] * Thyroid stimulating hormone (12/05/2024 12:26 PM EST) TSH 1.67 0.40 - 4.00 mcIU/mL LAB CHEMISTRY METHOD 12/05/2024 3:02 PM EST [facility] Blood Venous blood specimen / Unknown Venipuncture / Unknown 12/05/2024 12:26 PM EST 12/05/2024 1:57 PM EST Daron Randhawa MD LAB BLOOD ORDERABLES Final Resul t Performing Organization Address [facility] Co de Phone Number [facility] [address] [place] [address], [place] [phone] documented in this encounter Visit Diagnoses Diagnosis Hypothyroidism, unspecified Chronic kidney disease, stage 3 unspecified (CMS/HCC V24, CMS/HCC V28) documented in this encounter Care Teams Business Services Analyst Relationship Specialty Start Date End Date Yanelis Montgomery NP [address] [place] [address] PCP - General Internal Medicine 03/18/22 documented as of this encounter
--- OUTSIDE RECORDS SUMMARY | 2025-09-07 21:54 | XMS_ITS | Encounter Summary ---
Author Organization [facility] Address [address] [facility] [address] [place] [address] Phone Care Team Providers Care Casino Accountant Name Role Phone Yanelis Montgomery [facility] Primary Care Provide r Dirk Guillory MD Unavailable [phone] To Matthews DO Unavailable Magda Clement OT Unavailable [phone] Unknown, Unknown Primary Care Provider Raleigh Uribe MD Primary Care Provider + Encounter Details Date Type Department Care Team (Late st Contact Info) Description 07/01/2023 Procedure Pass [facility] [address] [place], [place] [phone] Social History Tobacco Use Types Packs/Day Years [...] high school, GED, job training, learning the [place] language, technical skills, or developing parenting skills)? [...] Date of Assessment Author No Risk Indicated 07/01/2023 5:59 PM EDT Tessa Truong RN * [place] Suicide Severity Rating Scale (Screener/Recent Self-Report) Question Answer Date of Assessment Author 1. Wish to be (Past 1 Month) No 07/01/2023 5:59 PM EDT Tessa Zeng RN 2. Non-Specific Active Suici rosalia Thoughts (Past 1 Month) No 07/01/2023 5:59 PM EDT Rubens Zeng RN 6. Suicidal Behavior (Lifetime) No 5:59 PM EDT Tessa Zeng RN documented as of this encounter Plan of Treatment Upcoming Encounters Date Type Department Care Team (Late st Contact Info) Description 01/04/2026 10:30 AM EDT Office Visit [facility] Neurology [address] [place] [address] Km Dash MD [address] [facility], 2nd [place] [address] documented as of this encounter Visit Diagnoses Not on filedocumented in this encounter Additional Health Concerns Infection Onset Date Last Indicated Resolved Time CoV-Risk 09/16/2023 09/22/2023 10/03/2023 1:22 AM EST Assessment Noted Time PHQ-9 Depression Total Score: 1 08/19/20 2:22 PM EST PHQ-2 Depression Total Score: 0 01/14/20 2:00 PM EDT documented as of this encounter Care Teams Casino Accountant Relationship Specialty Start Date End Date Yanelis Montgomery CNP [address] [place] [address] PCP - General Family Medicine 08/21/21 12/13/23 Unknown, Unknown, MD PCP - General 12/14/23 01/03/24 Raleigh Cook MD [address] [place] [address] PCP - General Internal Medicine 01/04/24 Dirk Guillory MD [address] [place] [address] Medical Oncology 11/12/21 To Matthews DO [address] [place] [address] Insurance Assigned Provider 01/16/24 10/17/24 Magda Clement, OT [address] [place] [address] [email or web address] Transitions Multifold OperatorDrawing Tender Therapy 07/02/23 07/05/23 documented as of this encounter Additional Source Comments The information contained in this document represents components of the legal health record. It is not the complete legal health record.[facility]
--- OUTSIDE RECORDS SUMMARY | 2025-09-07 21:54 | XMS_ITS | Encounter Summary ---
Author Organization [facility] Address [id number] [place] [address] Care Team Providers Care Concrete Puddler Name Role Phone Yanelis Montgomery NP Primary Care Provider [phone] Encounter Details Date Type Department Care Team (Late st Contact Info) Description 12/02/2024 Lab Requisition [facility] - Main Lab [address] [facility] [place] [address] Daron Randhawa MD [address] [place], [place] [phone] Unspecified combined systolic (congestive) and diastolic (congestive) heart failure (CMS/HCC V24, CMS/HCC V28); Chronic kidney disease, stage 3 unspecified (CMS/HCC [...] Associated Diagnosis Comments COMPLETE BLOOD COUNT Routine 12/03/2024 6:18 AM EST Unspecified combined systolic (congestive) and diastolic (congestive) heart failure (CMS/HCC) Chronic kidney disease, stage 3 unspecified (CMS/HCC) Hypothyroidism, unspecified THYROXINE FREE Routine 12/03/2024 6:18 AM EST Unspecified combined systolic (congestive) and diastolic (congestive) heart failure (CMS/HCC) Chronic kidney disease, stage 3 unspecified (CMS/HCC) Hypothyroidism, unspecified VITAMIN B12 Routine 12/03/2024 6:18 AM EST Unspecified combined systolic (congestive) and diastolic (congestive) heart failure (CMS/HCC) Chronic kidney disease, stage 3 unspecified (CMS/HCC) Hypothyroidism, unspecified CORTISOL Routine 12/03/2024 6:18 AM EST Unspecified combined systolic (congestive) and diastolic (congestive) heart failure (CMS/HCC) Chronic kidney disease, stage 3 unspecified (CMS/HCC) Hypothyroidism, unspecified BASIC METABOLIC PANEL Routine 12/03/2024 6:18 AM EST Unspecified combined systolic (congestive) and diastolic (congestive) heart failure (CMS/HCC) Chronic kidney disease, stage 3 unspecified (CMS/HCC) Hypothyroidism, unspecified documented in this encounter Results * Cortisol (12/03/2024 6:18 AM EST) Cortisol 16.8 mcg/dL LAB CHEMISTRY METHOD 12/03/2024 10:39 AM EST [facility] Blood Venous blood specimen / Unknown Venipuncture / Unknown 12/03/2024 6:18 AM EST 12/03/2024 10:05 AM EST Narrative [facility] - 12/03/2024 10:39 AM EST CORTISOL REFERENCE RANGE 8 AM SPEC: 5.0-23.0 mcg/dL 4 PM SPEC: 3.0-16.0 mcg/dL 8 PM SPEC: <5.0 mcg/dL us Daron Randhawa MD LAB BLOOD ORDERABLES Final Resul t [facility] [address] [place] [address], * (ABNORMAL) Vitamin B12 (12/03/2024 6:18 AM EST) Vitamin B-12 1,489(H) 250 - 900 pcg/mL LAB CHEMISTRY METHOD 12/03/2024 10:53 AM EST [facility] Blood Venous blood specimen / Unknown Venipuncture / Unknown 12/03/2024 6:18 AM EST 12/03/2024 10:05 AM EST us Daron Randhawa MD LAB BLOOD ORDERABLES Final Resul t Performing Organization Address [facility]/ZIP Co de Phone Number [facility] [address] [place] [address], [place] [phone] * (ABNORMAL) Thyroxine free (12/03/2024 6:18 AM EST) Free T4 0.46(L) 0.70 - 1.80 ng/dL LAB CHEMISTRY METHOD 12/03/2024 10:38 AM EST [facility] Blood Venous blood specimen / Unknown Venipuncture / Unknown 12/03/2024 6:18 AM EST 12/03/2024 10:05 AM EST us Daron Randhawa MD LAB BLOOD ORDERABLES Final Resul t Performing Organization Address [facility]/ZIP Co de Phone Number [facility] [address] [place] [address], [place] [phone] * (ABNORMAL) Basic metabolic panel (12/03/2024 6:18 AM EST) Sodium 143 133 - 145 mmol/L LAB CHEMISTRY METHOD 12/03/2024 10:32 AM [facility] Potassium 5.1 3.5 - 5.5 mmol/L LAB CHEMISTRY METHOD 12/03/2024 10:32 AM [facility] Chloride 117(H) 96 - 110 mmol/L LAB CHEMISTRY METHOD 12/03/2024 10:32 AM [facility] CO2 18(L) 21 - 32 mmol/L LAB CHEMISTRY METHOD 12/03/2024 10:32 AM [facility] Anion Gap 8 3 - 11 LAB CHEMISTRY METHOD 12/03/2024 10:32 AM [facility] Glucose 75 70 - 100 mg/dL LAB CHEMISTRY METHOD 12/03/2024 10:32 AM [facility] BUN 19 5 - 25 mg/dL LAB CHEMISTRY METHOD 12/03/2024 10:32 AM [facility] Creatinine 0.87 0.50 - 1.10 mg/dL LAB CHEMISTRY METHOD 12/03/2024 10:32 AM [facility] eGFR 65 >=60 mL/min/1. 73m2 LAB CHEMISTRY METHOD 12/03/2024 10:32 AM [facility] Comment:Calculation based on the Chronic Kidney Disease Epidemiology Collaboration (CKD-EPI) equation refit without adjustment for race. BUN/Creatinine Ratio 21.8 LAB CHEMISTRY METHOD 12/03/2024 10:32 AM [facility] Calcium 9.1 8.5 - 10.5 mg/dL LAB CHEMISTRY METHOD 12/03/2024 10:32 AM [facility] Blood Venous blood specimen / Unknown Venipuncture / Unknown 12/03/2024 6:18 AM EST 12/03/2024 10:05 AM EST Daron Randhawa MD LAB BLOOD ORDERABLES Final Resul t [facility] [address] [place] [address], * (ABNORMAL) Complete blood count (12/03/2024 6:18 AM EST) WBC 9.0 4.8 - 10.8 K/mcL LAB HEMETOLOGY METHOD 12/03/2024 10:13 AM [facility] RBC 3.60(L) 3.80 - 4.80 M/mcL LAB HEMETOLOGY METHOD 12/03/2024 10:13 AM [facility] Hemoglobin 12.6 11.5 - 16.0 g/dL LAB HEMETOLOGY METHOD 12/03/2024 10:13 AM [facility] Hematocrit 37.6 35.0 - 47.0 % LAB HEMETOLOGY METHOD 12/03/2024 10:13 AM [facility] MCV 103.6(H) 79.0 - 98.0 FL LAB HEMETOLOGY METHOD 12/03/2024 10:13 AM EST [facility] MCH 34.7(H) 27.0 - 32.0 pcg LAB HEMETOLOGY METHOD 12/03/2024 10:13 AM [facility] MCHC 33.5 32.0 - 37.0 g/dL LAB HEMETOLOGY METHOD 12/03/2024 10:13 AM [facility] RDW 19.0(H) 11.0 - 15.0 % LAB HEMETOLOGY METHOD 12/03/2024 10:13 AM [facility] Platelets 251 130 - 400 K/mcL LAB HEMETOLOGY METHOD 12/03/2024 10:13 AM [facility] MPV 10.8 7.0 - 11.0 FL LAB HEMETOLOGY METHOD 12/03/2024 10:13 AM [facility] NRBC 0.0 <1.0 % LAB HEMETOLOGY METHOD 12/03/2024 10:13 AM [facility] NRBC Absolute 0.00 <0.10 K/mcL LAB HEMETOLOGY METHOD 12/03/2024 10:13 AM [facility] Blood Venous blood specimen / Unknown Venipuncture / Unknown 12/03/2024 6:18 AM EST 12/03/2024 10:04 AM EST us Daron Randhawa MD LAB BLOOD ORDERABLES Final Resul t [facility] [address] [place] [address], [place] [phone] documented in this encounter Visit Diagnoses Diagnosis Unspecified combined systolic (congestive) and diastolic (congestive) heart failure ([facility] V24, [facility] V28) Chronic kidney disease, stage 3 unspecified ([facility] V24, [facility] V28) Hypothyroidism, unspecified documented in this encounter Care Teams Concrete Puddler Relationship Specialty Start Date End Date Yanelis Montgomery NP [address] [place] [address] PCP - General Internal Medicine 03/18/22 documented as of this encounter
--- OUTSIDE RECORDS SUMMARY | 2025-09-07 21:54 | XMS_ITS | Encounter Summary ---
Author Organization [facility] Address [address] [facility] [address] [place] [address] Phone Care Team Providers Care Sheet Manager Name Role Phone Yanelis Montgomery CNP Primary Care Provide r Dirk Guillory MD Unavailable [phone] To Matthews DO Unavailable Unknown, Unknown Primary Care Provider Raleigh Uribe MD Primary Care Provider + Encounter Details Date Type Department Care Team (Late st Contact Info) Description 07/12/2023 Procedure Pass [facility], Ct Scan - [address] [id number] Social History Tobacco Use Types Packs/Day Years [...] high school, GED, job training, learning the [place] language, technical skills, or developing parenting skills)? [...] 2:45 PM EDT Carson Hinojosa RN * [place] Suicide Severity Rating Scale (Screener/Recent Self-Report) Question [...] Description 01/04/2026 10:30 AM EDT Office Visit [facility] Neurology [address] [place] [address] Km Dash MD [address] [facility], [address] [place] [address] [email or web address] documented as of this encounter Visit Diagnoses Not on filedocumented in this encounter Additional Health Concerns Infection Onset Date Last Indicated Resolved Time CoV-Risk 09/16/2023 09/22/2023 10/03/2023 1:22 AM EST Assessment Noted Time PHQ-9 Depression Total Score: 1 08/19/20 2:22 PM EST PHQ-2 Depression Total Score: 0 01/14/20 2:00 PM EDT documented as of this encounter Care Teams Sheet Manager Relationship Specialty Start Date End Date Yanelis Montgomery CNP [address] [place] [address] [email or web address] PCP - General Family Medicine 08/21/21 12/13/23 Unknown, Unknown, MD PCP - General 12/14/23 01/03/24 Raleigh Cook MD [address] [place] [address] PCP - General Internal Medicine 01/04/24 Dirk Guillory MD [address] [place] [address] Medical Oncology 11/12/21 To Matthews DO [address] [place] [address] [email or web address] Insurance Assigned Provider 01/16/24 10/17/24 documented as of this encounter Additional Source Comments The information contained in this document represents components of the legal health record. It is not the complete legal health record.[facility]
--- OUTSIDE RECORDS SUMMARY | 2025-09-07 21:54 | XMS_ITS | Encounter Summary ---
Author Organization [facility] Address [id number] [place] [id number] Care Team Providers Care Manager Image Name Role Phone Yanelis Montgomery NP Primary Care Provider [phone] Encounter Details Date Type Department Care Team (Late st Contact Info) Description 03/31/2025 Lab Requisition [facility] - Main Lab [address] [facility] [place] [address] Daron Randhawa MD [address] [place], [place] [address] Hypothyroidism, unspecified; Chronic kidney disease, stage 3 unspecified (CMS/HCC V24, CMS/HCC V28); Pure hypercholesterolemia , unspecified; Unspecified combined systolic (congestive) and diastolic (congestive) heart failure (CMS/HCC V24, CMS/HCC V28) Social History Tobacco [...] Procedure Name Priority Date/Time Associated Diagnosis Comments LIPID PANEL WITH REFLEX TO DIRECT LDL Routine 04/03/2025 5:48 AM EDT Hypothyroidism, unspecified Chronic kidney disease, stage 3 unspecified (CMS/HCC V24, CMS/HCC V28) Pure hypercholesterolemi a, unspecified Unspecified combined systolic (congestive) and diastolic (congestive) heart failure (CMS/HCC V24, CMS/HCC V28) COMPLETE BLOOD COUNT Routine 04/03/2025 5:48 AM EDT Hypothyroidism, unspecified Chronic kidney disease, stage 3 unspecified (CMS/HCC V24, CMS/HCC V28) Pure hypercholesterolemi a, unspecified Unspecified combined systolic (congestive) and diastolic (congestive) heart failure (CMS/HCC V24, CMS/HCC V28) THYROID STIMULATING HORMONE Routine 04/03/2025 5:48 AM EDT Hypothyroidism, unspecified Chronic kidney disease, stage 3 unspecified (CMS/HCC V24, CMS/HCC V28) Pure hypercholesterolemi a, unspecified Unspecified combined systolic (congestive) and diastolic (congestive) heart failure (CMS/HCC V24, CMS/HCC V28) MAGNESIUM Routine 04/03/2025 5:48 AM EDT Hypothyroidism, unspecified Chronic kidney disease, stage 3 unspecified (CMS/HCC V24, CMS/HCC V28) Pure hypercholesterolemi a, unspecified Unspecified combined systolic (congestive) and diastolic (congestive) heart failure (CMS/HCC V24, CMS/HCC V28) COMPREHENSIVE METABOLIC PANEL Routine 04/03/2025 5:48 AM EDT Hypothyroidism, unspecified Chronic kidney disease, stage 3 unspecified (CMS/HCC V24, CMS/HCC V28) Pure hypercholesterolemi a, unspecified Unspecified combined systolic (congestive) and diastolic (congestive) heart failure (CMS/HCC V24, CMS/HCC V28) documented in this encounter Results * (ABNORMAL) Thyroid stimulating hormone (04/03/2025 5:48 AM EDT) TSH <0.05(L) 0.40 - 4.00 mcIU/mL LAB CHEMISTRY METHOD 04/03/2025 12:[address] [facility] Blood Venous blood specimen / Unknown Venipuncture / Unknown 04/03/2025 5:48 AM EDT 04/03/2025 10:21 AM EDT us Daron Randhawa MD LAB BLOOD ORDERABLES Final Resul t [facility] [address] [place] [address], [place] [phone] * (ABNORMAL) Magnesium (04/03/2025 5:48 AM EDT) Pathologist [facility] Magnesium 1.5(L) 1.9 - 2.6 mg/dL LAB CHEMISTRY METHOD 04/03/2025 12:[address] [facility] Blood Venous blood specimen / Unknown Venipuncture / Unknown 04/03/2025 5:48 AM EDT 04/03/2025 10:21 AM EDT Daron Randhawa MD LAB BLOOD ORDERABLES Final Resul t [facility] [address] [place] [address], [place] [phone] * Lipid panel with reflex to direct LDL (04/03/2025 5:48 AM EDT) [facility] Cholesterol 99 0 - 200 mg/dL LAB CHEMISTRY METHOD 04/03/2025 12:14 PM [facility] Triglycerides 80 0 - 150 mg/dL LAB CHEMISTRY METHOD 04/03/2025 12:14 PM [facility] HDL 54 >=40 mg/dL LAB CHEMISTRY METHOD 04/03/2025 12:14 PM [facility] LDL Calculated 29 0 - 100 mg/dL LAB CHEMISTRY METHOD 04/03/2025 12:[address] [facility] VLDL Cholesterol Blake 16 mg/dL LAB CHEMISTRY METHOD 04/03/2025 12:14 PM [facility] Non HDL Chol. (LDL+VLDL) 45 <145 mg/dL LAB CHEMISTRY METHOD 04/03/2025 12:14 PM [facility] Chol/HDL Ratio 1.8 0.0 - 4.4 LAB CHEMISTRY METHOD 04/03/2025 12:14 PM [facility] Blood Venous blood specimen / Unknown Venipuncture / Unknown 04/03/2025 5:48 AM EDT 04/03/2025 10:21 AM EDT Daron Randhawa MD LAB BLOOD ORDERABLES Final Resul t [facility] [address] [place] [address], * (ABNORMAL) Comprehensive metabolic panel (04/03/2025 5:48 AM EDT) Sodium 139 133 - 145 mmol/L LAB CHEMISTRY METHOD 04/03/2025 12:14 PM [facility] Potassium 4.3 3.5 - 5.5 mmol/L LAB CHEMISTRY METHOD 04/03/2025 12:14 PM [facility] Chloride 109 96 - 110 mmol/L LAB CHEMISTRY METHOD 04/03/2025 12:14 PM [facility] CO2 24 21 - 32 mmol/L LAB CHEMISTRY METHOD 04/03/2025 12:14 PM [facility] Anion Gap 6 3 - 11 LAB CHEMISTRY METHOD 04/03/2025 12:14 PM [facility] Glucose 57(L) 70 - 100 mg/dL LAB CHEMISTRY METHOD 04/03/2025 12:14 PM [facility] BUN 9 5 - 25 mg/dL LAB CHEMISTRY METHOD 04/03/2025 12:14 PM [facility] Creatinine 0.58 0.50 - 1.10 mg/dL LAB CHEMISTRY METHOD 04/03/2025 12:14 PM [facility] eGFR 88 >=60 mL/min/1. 73m2 LAB CHEMISTRY METHOD 04/03/2025 12:14 PM [facility] Comment:Calculation based on the Chronic Kidney Disease Epidemiology Collaboration (CKD-EPI) equation refit without adjustment for race. BUN/Creatinine Ratio 15.5 LAB CHEMISTRY METHOD 04/03/2025 12:14 PM [facility] Calcium 8.6 8.5 - 10.5 mg/dL LAB CHEMISTRY METHOD 04/03/2025 12:14 PM [facility] AST (SGOT) 30 10 - 42 unit/L LAB CHEMISTRY METHOD 04/03/2025 12:14 PM [facility] ALT (SGPT) 19 10 - 60 unit/L LAB CHEMISTRY METHOD 04/03/2025 12:14 PM [facility] Alkaline Phosphatase 130(H) 42 - 121 unit/L LAB CHEMISTRY METHOD 04/03/2025 12:14 PM [facility] Total Protein 5.2(L) 6.0 - 8.0 g/dL LAB CHEMISTRY METHOD 04/03/2025 12:14 PM [facility] Albumin 2.1(L) 3.2 - 5.0 g/dL LAB CHEMISTRY METHOD 04/03/2025 12:14 PM [facility] Total Bilirubin 0.3 0.0 - 1.4 mg/dL LAB CHEMISTRY METHOD 04/03/2025 12:14 PM [facility] Blood Venous blood specimen / Unknown Venipuncture / Unknown 04/03/2025 5:48 AM EDT 04/03/2025 10:21 AM EDT us Daron Randhawa MD LAB BLOOD ORDERABLES Final Resul t [facility] [address] [place] [address], * (ABNORMAL) Complete blood count (04/03/2025 5:48 AM EDT) WBC 8.2 4.8 - 10.8 K/mcL LAB HEMETOLOGY METHOD 04/03/2025 11:[address] [facility] RBC 3.10(L) 3.80 - 4.80 M/mcL LAB HEMETOLOGY METHOD 04/03/2025 11:00 AM [facility] Hemoglobin 9.9(L) 11.5 - 16.0 g/dL LAB HEMETOLOGY METHOD 04/03/2025 11:00 AM [facility] Hematocrit 31.0(L) 35.0 - 47.0 % LAB HEMETOLOGY METHOD 04/03/2025 11:00 AM [facility] MCV 100.0(H) 79.0 - 98.0 FL LAB HEMETOLOGY METHOD 04/03/2025 11:00 AM [facility] MCH 31.9 27.0 - 32.0 pcg LAB HEMETOLOGY METHOD 04/03/2025 11:00 AM [facility] MCHC 31.9(L) 32.0 - 37.0 g/dL LAB HEMETOLOGY METHOD 04/03/2025 11:00 AM [facility] RDW 15.1(H) 11.0 - 15.0 % LAB HEMETOLOGY METHOD 04/03/2025 11:00 AM [facility] Platelets 211 130 - 400 K/mcL LAB HEMETOLOGY METHOD 04/03/2025 11:00 AM [facility] MPV 10.4 7.0 - 11.0 FL LAB HEMETOLOGY METHOD 04/03/2025 11:00 AM [facility] NRBC 0.0 <1.0 % LAB HEMETOLOGY METHOD 04/03/2025 11:00 AM [facility] NRBC Absolute 0.00 <0.10 K/mcL LAB HEMETOLOGY METHOD 04/03/2025 11:00 AM [facility] Blood Venous blood specimen / Unknown Venipuncture / Unknown 04/03/2025 5:48 AM EDT 04/03/2025 10:21 AM EDT us Daron Randhawa MD LAB BLOOD ORDERABLES Final Resul t [facility] [address] [place] [address], documented in this encounter Visit Diagnoses Diagnosis Hypothyroidism, unspecified Chronic kidney disease, stage 3 unspecified (CMS/HCC V24, CMS/HCC V28) Pure hypercholesterolemia, unspecified Unspecified combined systolic (congestive) and diastolic (congestive) heart failure (CMS/HCC V24, CMS/HCC V28) documented in this encounter Care Teams Manager Image Relationship Specialty Start Date End Date Yanelis Montgomery PAPER TWISTER [address] [place] [id number] PCP - General Internal Medicine 03/18/22 documented as of this encounter
--- OUTSIDE RECORDS SUMMARY | 2025-09-07 21:54 | XMS_ITS | Encounter Summary ---
Author Organization [facility] Address [address] [place] [address] Phone Care Team Providers Care Fiber Optics Engineer Name Role Phone Yanelis Montgomery CNP Primary Care Provide r Dirk Guillory MD Unavailable [phone] Cassie To J DO Unavailable Magda Clement OT Unavailable [phone] Magda Clement OT Unavailable Unknown, Unknown Primary Care Provider Raleigh Uribe MD Primary Care Provider + Reason for Referral * MRI/CAT Scan - Closed Specialty Diagnoses / Procedures Referred By Contac t Referred To Contact Radiology Diagnoses Meningioma Procedures MRI Brain Anya Abarca MD Phone: tel: fax: Referral ID Status Reason Start Date Expiration Date Visits Re quested Visits Authorized [id number] Closed 01/30/2023 1 1 Encounter Details Date Type Department Care Team (Latest Contact Info) Description 01/30/2023 Transcribe Orders [facility] Department [address] [place] [address] Anya Abarca MD [address] [place] [id number] Meningioma (Primary Dx) Social History Tobacco Use Types Packs/Day Years [...] high school, GED, job training, learning the [place] language, technical skills, or developing parenting skills)? [...] Description 01/04/2026 10:30 AM EDT Office Visit [facility] Neurology [address] [place] [address] Km Dash MD [address] [facility]nd [place] [address] [email or web address] documented as of this encounter Results * MRI BRAIN WITH AND WITHOUT CONTRAST (02/26/2023 3:08 PM EDT) Anatomical Region Laterality Modality Head Magnetic Resonan ce 02/26/2023 3:03 PM EDT Impressions 02/26/2023 6:25 PM EDT 1. Unchanged to minimally decrease in size of bulky paraclival meningioma. 2. Similar small left inferior frontal and left parafalcine meningiomas. 3. Similar platelike dural thickening in the right frontal region. Narrative 02/26/2023 6:25 PM EDT MRI BRAIN WITH AND WITHOUT CONTRAST History:Outside Radiology Order; meningioma TECHNIQUE: MRI BRAIN WITH AND WITHOUT CONTRAST Multi-sequence, multi-planar MRI of the brain was performed before and after intravenous contrast. Note: Patient has sneezed a few times following administration of intravenous contrast. I was called by the technologist to see the patient following completion of the exam. Patient was not in distress, and did not sneeze in my presence. I explained to the patient that this may represent a mild reaction to the contrast gadolinium, and recommended premedication for any future contrast enhanced MR studies. COMPARISON: Brain MRI on February 14, 2022. FINDINGS: Brain Parenchyma: No evidence of acute infarct, mass, hemorrhage or abnormal enhancement. There are scattered foci of T2 hyperintensity in the white matter, likely a manifestation of chronic small vessel disease. 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 Focal area of susceptibility effect in the left parietal lobe (7:44). Ventricular System and Extra-Axial Spaces: -Unchanged to minimally decreased in size of bulky paraclival dural based enhancing mass, measuring approximately 4.2 cm x 3.9 cm on axial plane (101:61, previously 4.7 x 3.7 cm), and 4.9 cm x 3.4 cm on the coronal plane (102:83, previously 4.7 cm x 3.9 cm). The component in the left cerebellopontine angle measures 2.5 x 1.5 cm (11:7), unchanged. Similar involvement of Meckel's cave and invasion of bilateral cavernous sinuses and encasement of local internal carotid arteries. Similar suprasellar extension with encasement of the pituitary infundibulum and prechiasmatic optic nerves. Similar transosseous extension of the tumor into the petrous bones and clivus. Similar extension into sphenoid sinus. Similar abutment of the left vertebral artery. -Similar 0.6 cm dural based enhancing mass in the inferior left frontal region (11:13) -Similar 0.5 cm left parafalcine dural based enhancing mass (101:144) -Platelike area of the thickening of the enhancing dura along the right frontal region measuring up to 0.8 cm in thickness (101:117, 12:117) similar to prior study. -No evidence of midline shift. No hydrocephalus. Extracranial Structures: Arterial flow voids in the skull base are present. Similar appearance of the thickened left frontal bone. Similar thickened hypoenhancing right frontal bone, presumably due to transosseous extension of the meningioma. Procedure Note Cole Tinsley MD - 02/26/2023 MRI BRAIN WITH AND WITHOUT CONTRAST History:Outside Radiology Order; meningioma TECHNIQUE: MRI BRAIN WITH AND WITHOUT CONTRAST Multi-sequence, multi-planar MRI of the brain was performed before andafter intravenous contrast. Note: Patient has sneezed a few times following administration ofintravenous contrast. I was called by the technologist to see the patientfollowing completion of the exam. Patient was not in distress, and did notsneeze in my presence. I explained to the patient that this may representa mild reaction to the contrast gadolinium, and recommended premedicationfor any future contrast enhanced MR studies. COMPARISON: Brain MRI on February 14, 2022. FINDINGS: Brain Parenchyma: No evidence of acute infarct, mass, hemorrhage orabnormal enhancement. 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 Ventricular System and Extra-Axial Spaces: -Unchanged to minimally decreased in size of bulky paraclival dural basedenhancing mass, measuring approximately 4.2 cm x 3.9 cm on axial plane(101:61, previously 4.7 x 3.7 cm), and 4.9 cm x 3.4 cm on the coronalplane (102:83, previously 4.7 cm x 3.9 cm). The component in the leftcerebellopontine angle measures 2.5 x 1.5 cm (11:7), unchanged. Similarinvolvement of Meckel's cave and invasion of bilateral cavernous sinusesand encasement of local internal carotid arteries. Similar suprasellarextension with encasement of the pituitary infundibulum and prechiasmaticoptic nerves. Similar transosseous extension of the tumor into the petrousbones and clivus. Similar extension into sphenoid sinus. Similar abutmentof the left vertebral artery. -Similar 0.6 cm dural based enhancing mass in the inferior left frontalregion (11:13) -Similar 0.5 cm left parafalcine dural based enhancing mass (101:144) -Platelike area of the thickening of the enhancing dura along the rightfrontal region measuring up to 0.8 cm in thickness (101:117, 12:117)similar to prior study. -No evidence of midline shift. No hydrocephalus. Extracranial Structures: Arterial flow voids in the skull base arepresent. Similar appearance of the thickened left frontal bone. Similarthickened hypoenhancing right frontal bone, presumably due to transosseousextension of the meningioma. IMPRESSION: 1. Unchanged to minimally decrease in size of bulky paraclivalmeningioma. 2. Similar small left inferior frontal and left parafalcinemeningiomas. 3. Similar platelike dural thickening in the right frontal region. Anya Abarca MD IMG MR HEAD/NECK Final Result documented in this encounter Visit Diagnoses Diagnosis Meningioma- Primary Benign neoplasm of cerebral meninges Meningioma Benign neoplasm of cerebral meninges documented in this encounter Additional Health Concerns Infection Onset Date Last Indicated Resolved Time CoV-Risk 09/16/2023 09/22/2023 10/03/2023 1:22 AM EST Assessment Noted Time PHQ-9 Depression Total Score: 1 08/19/20 2:22 PM EST PHQ-2 Depression Total Score: 0 01/14/20 2:00 PM EDT documented as of this encounter Care Teams Fiber Optics Engineer Relationship Specialty Start Date End Date Yanelis Montgomery CNP [address] [place] [address] [email or web address] PCP - General Family Medicine 08/21/21 12/13/23 Unknown, Kasia, MD PCP - General 12/14/23 01/03/24 Raleigh Cook MD [address] [place] [id number] PCP - General Internal Medicine 01/04/24 Dirk Guillory MD [address] [place] [id number] Medical Oncology 11/12/21 To Matthews DO [address] [place] [address] Insurance Assigned Provider 01/16/24 10/17/24 Magda Clement, OT [address] [place] [address] Transitions Editor [employer] Photograph[employer] Safety Teacher Therapy 05/12/23 05/13/23 Magda Clement, OT [address] [place] [address] Transitions Editor School Photograph[employer] Safety Teacher Therapy 07/02/23 07/05/23 documented as of this encounter Additional Source Comments The information contained in this document represents components of the legal health record. It is not the complete legal health record.[facility]
--- OUTSIDE RECORDS SUMMARY | 2025-09-07 21:54 | XMS_ITS | Encounter Summary ---
Author Organization [facility] Address [id number] [place] [id number] Care Team Providers Care Block Placer Name Role Phone Yanelis Montgomery NP Primary Care Provider [phone] Encounter Details Date Type Department Care Team (Late st Contact Info) Description 09/29/2024 Lab Requisition [facility] - Main Lab [address] [facility] [place] [address] Raleigh Cook MD [address] [place] [address] Unspecified combined systolic (congestive) and diastolic (congestive) heart failure (CMS/HCC V24, CMS/HCC V28); Pure hypercholesterolemia, unspecified; Chronic kidney disease, stage 3 unspecified [...] Date/Time Associated Diagnosis Comments THYROID STIMULATING HORMONE WITH REFLEX TO FREE T4 AND FREE T3 Routine 09/30/2024 6:35 AM EST Unspecified combined systolic (congestive) and diastolic (congestive) heart failure (CMS/HCC) Pure hypercholesterolemi a, unspecified Chronic kidney disease, stage 3 unspecified (CMS/HCC) Hypothyroidism, unspecified LIPID PANEL WITH REFLEX TO DIRECT LDL Routine 09/30/2024 6:35 AM EST Unspecified combined systolic (congestive) and diastolic (congestive) heart failure (CMS/HCC) Pure hypercholesterolemi a, unspecified Chronic kidney disease, stage 3 unspecified (CMS/HCC) Hypothyroidism, unspecified COMPLETE BLOOD COUNT Routine 09/30/2024 6:35 AM EST Unspecified combined systolic (congestive) and diastolic (congestive) heart failure (CMS/HCC) Pure hypercholesterolemi a, unspecified Chronic kidney disease, stage 3 unspecified (CMS/HCC) Hypothyroidism, unspecified THYROID STIMULATING HORMONE Routine 09/30/2024 6:35 AM EST Unspecified combined systolic (congestive) and diastolic (congestive) heart failure (CMS/HCC) Pure hypercholesterolemi a, unspecified Chronic kidney disease, stage 3 unspecified (CMS/HCC) Hypothyroidism, unspecified MAGNESIUM Routine 09/30/2024 6:35 AM EST Unspecified combined systolic (congestive) and diastolic (congestive) heart failure (CMS/HCC) Pure hypercholesterolemi a, unspecified Chronic kidney disease, stage 3 unspecified (CMS/HCC) Hypothyroidism, unspecified COMPREHENSIVE METABOLIC PANEL Routine 09/30/2024 6:35 AM EST Unspecified combined systolic (congestive) and diastolic (congestive) heart failure (CMS/HCC) Pure hypercholesterolemi a, unspecified Chronic kidney disease, stage 3 unspecified (CMS/HCC) Hypothyroidism, unspecified BASIC METABOLIC PANEL Routine 09/30/2024 6:35 AM EST Unspecified combined systolic (congestive) and diastolic (congestive) heart failure (CMS/HCC) Pure hypercholesterolemi a, unspecified Chronic kidney disease, stage 3 unspecified (CMS/HCC) Hypothyroidism, unspecified documented in this encounter Results * Thyroid stimulating hormone with reflex to free t4 and free t3 (09/30/2024 6:35 AM EST) [facility] Signature TSH 1.58 0.40 - 4.00 mcIU/mL LAB CHEMISTRY METHOD 09/30/2024 11:27 AM EST [facility] Blood Venous blood specimen / Unknown Venipuncture / Unknown 09/30/2024 6:35 AM EST 09/30/2024 9:37 AM EST us Raleigh Cook MD LAB BLOOD ORDERABLES Final R esult [facility] [address] [place] [address], * (ABNORMAL) Basic metabolic panel (09/30/2024 6:35 AM EST) Sodium 138 133 - 145 mmol/L LAB CHEMISTRY METHOD 09/30/2024 11:20 AM EST [facility] Potassium 4.7 3.5 - 5.5 mmol/L LAB CHEMISTRY METHOD 09/30/2024 11:[address] [facility] Chloride 107 96 - 110 mmol/L LAB CHEMISTRY METHOD 09/30/2024 11:[address] [facility] CO2 24 21 - 32 mmol/L LAB CHEMISTRY METHOD 09/30/2024 11:[address] [facility] Anion Gap 7 3 - 11 LAB CHEMISTRY METHOD 09/30/2024 11:[address] [facility] Glucose 62(L) 70 - 100 mg/dL LAB CHEMISTRY METHOD 09/30/2024 11:[address] [facility] BUN 10 5 - 25 mg/dL LAB CHEMISTRY METHOD 09/30/2024 11:[address] [facility] Creatinine 0.88 0.50 - 1.10 mg/dL LAB CHEMISTRY METHOD 09/30/2024 11:[address] [facility] eGFR 64 >=60 mL/min/1. 73m2 LAB CHEMISTRY METHOD 09/30/2024 11:[address] [facility] Comment:Calculation based on the Chronic Kidney Disease Epidemiology Collaboration (CKD-EPI) equation refit without adjustment for race. BUN/Creatinine Ratio 11.4 LAB CHEMISTRY METHOD 09/30/2024 11:[address] [facility] Calcium 8.8 8.5 - 10.5 mg/dL LAB CHEMISTRY METHOD 09/30/2024 11:20 AM EST [facility] Blood Venous blood specimen / Unknown Venipuncture / Unknown 09/30/2024 6:35 AM EST 09/30/2024 9:37 AM EST Raleigh Cook MD LAB BLOOD ORDERABLES Final R esult [facility] [address] [place] [address], [place] [phone] * Thyroid stimulating hormone (09/30/2024 6:35 AM EST) TSH 1.58 0.40 - 4.00 mcIU/mL LAB CHEMISTRY METHOD 09/30/2024 11:27 AM EST [facility] Blood Venous blood specimen / Unknown Venipuncture / Unknown 09/30/2024 6:35 AM EST 09/30/2024 9:37 AM EST us Raleigh Cook MD LAB BLOOD ORDERABLES Final R esult Performing Organization Address City/[facility]/ZIP Co de Phone Number [facility] [address] [place] [address], [place] [phone] * (ABNORMAL) Magnesium (09/30/2024 6:35 AM EST) Magnesium 1.8(L) 1.9 - 2.6 mg/dL LAB CHEMISTRY METHOD 09/30/2024 11:20 AM EST [facility] Blood Venous blood specimen / Unknown Venipuncture / Unknown 09/30/2024 6:35 AM EST 09/30/2024 9:37 AM EST us Raleigh Cook MD LAB BLOOD ORDERABLES Final R esult [facility] [address] [place] [address], [place] [phone] * Lipid panel with reflex to direct LDL (09/30/2024 6:35 AM EST) Cholesterol 103 0 - 200 mg/dL LAB CHEMISTRY METHOD 09/30/2024 11:[address] [facility] Triglycerides 79 0 - 150 mg/dL LAB CHEMISTRY METHOD 09/30/2024 11:[address] [facility] HDL 55 >=40 mg/dL LAB CHEMISTRY METHOD 09/30/2024 11:[address] [facility] LDL Calculated 32 0 - 100 mg/dL LAB CHEMISTRY METHOD 09/30/2024 11:[address] [facility] VLDL Cholesterol Blake 15.8 mg/dL LAB CHEMISTRY METHOD 09/30/2024 11:[address] [facility] Non HDL Chol. (LDL+VLDL) 48 <145 mg/dL LAB CHEMISTRY METHOD 09/30/2024 11:[address] [facility] Chol/HDL Ratio 1.9 0.0 - 4.4 LAB CHEMISTRY METHOD 09/30/2024 11:[address] [facility] Blood Venous blood specimen / Unknown Venipuncture / Unknown 09/30/2024 6:35 AM EST 09/30/2024 9:37 AM EST us Raleigh Cook MD LAB BLOOD ORDERABLES Final R esult [facility] [address] [place] [address], * (ABNORMAL) Comprehensive metabolic panel (09/30/2024 6:35 AM EST) Sodium 138 133 - 145 mmol/L LAB CHEMISTRY METHOD 09/30/2024 11:[address] [facility] Potassium 4.7 3.5 - 5.5 mmol/L LAB CHEMISTRY METHOD 09/30/2024 11:[address] [facility] Chloride 107 96 - 110 mmol/L LAB CHEMISTRY METHOD 09/30/2024 11:[address] [facility] CO2 24 21 - 32 mmol/L LAB CHEMISTRY METHOD 09/30/2024 11:[address] [facility] Anion Gap 7 3 - 11 LAB CHEMISTRY METHOD 09/30/2024 11:[address] [facility] Glucose 62(L) 70 - 100 mg/dL LAB CHEMISTRY METHOD 09/30/2024 11:[address] [facility] BUN 10 5 - 25 mg/dL LAB CHEMISTRY METHOD 09/30/2024 11:[address] [facility] Creatinine 0.88 0.50 - 1.10 mg/dL LAB CHEMISTRY METHOD 09/30/2024 11:[address] [facility] eGFR 64 >=60 mL/min/1. 73m2 LAB CHEMISTRY METHOD 09/30/2024 11:[address] [facility] Comment:Calculation based on the Chronic Kidney Disease Epidemiology Collaboration (CKD-EPI) equation refit without adjustment for race. BUN/Creatinine Ratio 11.4 LAB CHEMISTRY METHOD 09/30/2024 11:[address] [facility] Calcium 8.8 8.5 - 10.5 mg/dL LAB CHEMISTRY METHOD 09/30/2024 11:[address] [facility] AST (SGOT) 30 10 - 42 unit/L LAB CHEMISTRY METHOD 09/30/2024 11:[address] [facility] ALT (SGPT) 26 10 - 60 unit/L LAB CHEMISTRY METHOD 09/30/2024 11:[address] [facility] Alkaline Phosphatase 180(H) 42 - 121 unit/L LAB CHEMISTRY METHOD 09/30/2024 11:[address] [facility] Total Protein 5.9(L) 6.0 - 8.0 g/dL LAB CHEMISTRY METHOD 09/30/2024 11:[address] [facility] Albumin 2.4(L) 3.2 - 5.0 g/dL LAB CHEMISTRY METHOD 09/30/2024 11:[address] [facility] Total Bilirubin 0.4 0.0 - 1.4 mg/dL LAB CHEMISTRY METHOD 09/30/2024 11:[address] [facility] Blood Venous blood specimen / Unknown Venipuncture / Unknown 09/30/2024 6:35 AM EST 09/30/2024 9:37 AM EST us Raleigh Cook MD LAB BLOOD ORDERABLES Final R esult [facility] [address] [place] [address], * (ABNORMAL) Complete blood count (09/30/2024 6:35 AM EST) WBC 6.3 4.8 - 10.8 K/mcL LAB HEMETOLOGY METHOD 09/30/2024 10:[address] [facility] RBC 3.50(L) 3.80 - 4.80 M/mcL LAB HEMETOLOGY METHOD 09/30/2024 10:[address] [facility] Hemoglobin 10.3(L) 11.5 - 16.0 g/dL LAB HEMETOLOGY METHOD 09/30/2024 10:[address] [facility] Hematocrit 33.1(L) 35.0 - 47.0 % LAB HEMETOLOGY METHOD 09/30/2024 10:[address] [facility] MCV 95.1 79.0 - 98.0 FL LAB HEMETOLOGY METHOD 09/30/2024 10:[address] [facility] MCH 29.6 27.0 - 32.0 pcg LAB HEMETOLOGY METHOD 09/30/2024 10:[address] [facility] MCHC 31.1(L) 32.0 - 37.0 g/dL LAB HEMETOLOGY METHOD 09/30/2024 10:57 AM EST [facility] RDW 14.9 11.0 - 15.0 % LAB HEMETOLOGY METHOD 09/30/2024 10:57 AM EST [facility] Platelets 309 130 - 400 K/mcL LAB HEMETOLOGY METHOD 09/30/2024 10:57 AM EST [facility] MPV 9.4 7.0 - 11.0 FL LAB HEMETOLOGY METHOD 09/30/2024 10:57 AM EST [facility] NRBC 0.0 <1.0 % LAB HEMETOLOGY METHOD 09/30/2024 10:57 AM EST [facility] NRBC Absolute 0.00 <0.10 K/mcL LAB HEMETOLOGY METHOD 09/30/2024 10:[address] [facility] Blood Venous blood specimen / Unknown Venipuncture / Unknown 09/30/2024 6:35 AM EST 09/30/2024 9:37 AM EST us Raleigh Cook MD LAB BLOOD ORDERABLES Final R esult [facility] [address] [place] [address], documented in this encounter Visit Diagnoses Diagnosis Unspecified combined systolic (congestive) and diastolic (congestive) heart failure (CMS/HCC V24, CMS/HCC V28) Pure hypercholesterolemia, unspecified Chronic kidney disease, stage 3 unspecified (CMS/HCC V24, CMS/HCC V28) Hypothyroidism, unspecified documented in this encounter Care Teams Block Placer Relationship Specialty Start Date End Date Yanelis Montgomery NP [address] [place] [id number] PCP - General Internal Medicine 03/18/22 documented as of this encounter
--- OUTSIDE RECORDS SUMMARY | 2025-09-07 21:54 | XMS_ITS | Encounter Summary ---
Author Organization [facility] Address [address] [facility] [address] [place] [address] Phone Care Team Providers Care Stove Cleaner Name Role Phone Yanelis Montgomery PAPER CUTTER OPERATOR Primary Care Provide r Dirk Guillory MD Unavailable [phone] To Matthews DO Unavailable Magda Clement OT Unavailable [phone] Magda Clement OT Unavailable [phone] Unknown, Unknown Primary Care Provider Raleigh Uribe MD Primary Care Provider + Encounter Details Date Type Department Care Team (Late st Contact Info) Description 02/05/2022 Ancillary Orders [facility],Outside Imaging [address] [place] [address] System, Provider Not In, PhD Partners [address] [address] Social History Tobacco Use Types Packs/Day Years [...] high school, GED, job training, learning the Chinese language, technical skills, or developing parenting skills)? [...] Description 01/04/2026 10:30 AM EDT Office Visit [facility] Neurology [address] [place] [address] Km Dash MD [address] [facility] [place] [address] documented as of this encounter Results * MRI Brain Outside (No Interpretation) (09/20/2021 12:00 AM EST) Narrative SYSTEMGENERATED, DOCUMENTATION - 02/05/2022 11:15 AM EDT This study is for PACS storage only and not for interpretation. us Provider Not In System PhD IMG OUTSIDE IMAGING W /OUT INTERPRETATION Final Result documented in this encounter Visit Diagnoses Not on filedocumented in this encounter Additional Health Concerns Infection Onset Date Last Indicated Resolved Time CoV-Risk 09/16/2023 09/22/2023 10/03/2023 1:22 AM EST Assessment Noted Time PHQ-2 Depression Total Score: 0 10/01/20 1:55 PM EST documented as of this encounter Care Teams Stove Cleaner Relationship Specialty Start Date End Date Yanelis Montgomery CNP [address] [place] [address] [email or web address] PCP - General Family Medicine 08/21/21 12/13/23 Unknown, Unknown, PCP - General 12/14/23 01/03/24 Raleigh Cook MD [address] [place] [address] PCP - General Internal Medicine 01/04/24 Dirk Guillory MD [address] [place] [address] [email or web address] Medical Oncology 11/12/21 To Matthews DO [address] [place] [address] [email or web address] Insurance Assigned Provider 01/16/24 10/17/24 Magda Clement, OT [address] [place] [address] [email or web address] Transitions Manager [employer] 05/12/23 05/13/23 Magda Clement, OT [address] [place] [address] [email or web address] Transitions Manager [employer] 07/02/23 07/05/23 documented as of this encounter Additional Source Comments The information contained in this document represents components of the legal health record. It is not the complete legal health record.[facility]
--- OUTSIDE RECORDS SUMMARY | 2025-09-07 21:54 | XMS_ITS | Clinical Summary ---
Author Organization [address] Address [address] [place] [address] Phone Care Team Providers Care Business Management Analyst Name Role Phone Yanelis Montgomery NP Primary Care Provider [phone]- [phone] Encounters Date Type Department Care Team Description 08/01/2025 Lab Requisition [facility] Lab [address] [place] [phone] Daron Randhawa MD Vomiting, unspecified 07/07/2025 Lab Requisition [facility] Lab [address] [place] [phone] Daron Randhawa MD Essential (primary) hypertension 06/29/2025 Lab Requisition [facility] Lab [address] [place] [phone] Daron Randhawa MD Hypothyroidism, unspecified 06/27/2025 Lab Requisition [facility] Lab [address] [place] [phone] Daron Randhawa MD Type 2 diabetes mellitus without complications (CMS/HCC V24, CMS/[facility] V28); Heart failure, unspecified (CMS/HCC V24, CMS/HCC V28) 06/22/2025 Lab Requisition [facility] Lab [address] [place] [phone] Daron Randhawa MD Heart failure, unspecified (CMS/HCC V24, CMS/HCC V28); Crohn's disease, unspecified, with unspecified complications (CMS/HCC V24, CMS/[facility] V28) 06/19/2025 Lab Requisition [facility] Lab [address] [place] [phone] Daron Randhawa MD Gastrointestinal hemorrhage, unspecified 06/09/2025 Lab Requisition [facility] Lab [address] [place] [phone] Daron Randhawa MD Essential (primary) hypertension 06/09/2025 Lab Requisition [facility] Main Lab [address] [place] [phone] Daron Randhawa MD Altered mental status, unspecified from Last 3 Months Surgical History Surgery Date Site/Laterality Comments OTHER SURGICAL HISTORY PROCEDURE: 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; COMMENT: history of multiple brain procedures at [facility] Medical History Medical History Date Comments Essential hypertension DX:Essent ial hypertension Crohn's colitis ([facility] V24, [facility] V28) DX:Crohn's colitis ([facility]) Anxiety state DX:Anxiety state Depressive disorder DX:Depressiv e disorder Social History Tobacco Use Types Packs/Day Years Used Date Smoking Tobacco: Never Assessed Comments Unknown Sex and Gender Information Value Date Recorded Sex Assigned at Not on file Legal Sex Female 6:27 AM EST Gender Identity Not on file Sexual Orientation Not on file Obstetrics History Last Filed Vital Signs Vital Sign Reading Time Taken Comments Blood Pressure - - Pulse - - Temperature - - Respiratory Rate - - Oxygen Saturation - - Inhaled Oxygen Concentration - - Weight 64 kg (141 lb) 03/14/2022 1:43 PM EDT Height 153.7 cm (5' 0.51 ) 03/14/2022 1:43 PM ED T Body Mass Index 27.07 03/14/2022 1:43 PM EDT Plan of Treatment Health Maintenance Due Date Last Done Comments Diabetes: Annual Foot Exam 1950 Diabetes: Annual Retina Eye Exam 1950 Zoster Vaccines (2 of 3) 01/14/2012 11/19/2011 RSV Immunization Adult Patients (1 - 1-dose 75+ series) 2013 Hepatitis B Vaccines (2 of 3 - 19+ 3-dose series) 12/21/2017 11/23/2017 Falls Risk Assessment 09/14/2022 Medicare Annual Wellness Visit 09/14/2022 Osteoporosis Screening (Bone Density Screening) 09/14/2022 Social Influencers of Health Screening 09/14/2022 Depression Screening 10/12/2024 COVID-19 Vaccine ( season) 2025 07/29/2023, 07/16/2022, 09/12/2021, Additional history exists Influenza Vaccine (#1) 2025 , 07/16/2022, 08/07/2021, Additional history exists Diabetes: Blood Sugar Control Test (HGBA1C) 06/27/2025 Hypertension/CHF/CAD Annual BMP Blood Test 08/01/2026 08/01/2025, 07/07/2025, 06/28/2025, Additional history exists Cholesterol Screening (Lipid Panel) 04/03/2030 04/03/2025, 09/30/2024 DTaP,Tdap,and Td Vaccines (4 - Td or Tdap) 08/19/2032 08/19/2022, 11/06/2011, 11/06/2011 Pneumococcal Vaccine: 50+ Years Completed 08/23/2015, 11/06/2011, [...] on patient's age to complete this topic MMR Vaccines Aged Out No longer eligi ble based on patient's age to complete this topic Meningococcal ACWY Vaccine Aged Out N o longer eligible based on patient's age to complete this topic Meningococcal B Vaccine Aged Out No l onger eligible based on patient's age to complete this topic RSV Immunization Patients Under 20 months Aged Out No longer eligible based on patient's age to complete this topic Varicella Vaccines Aged Out No longer eligible based on patient's age to complete this topic Procedures Procedure Name Priority Date/Time Associated Diagnosis Comments BASIC METABOLIC PANEL Routine 08/01/2025 10:10 AM EDT Vomiting, unspecified COMPLETE BLOOD COUNT Routine 08/01/2025 10:10 AM EDT Vomiting, unspecified BASIC METABOLIC PANEL Routine 07/07/2025 6:58 AM EDT Essential (primary) hypertension COMPLETE BLOOD COUNT Routine 07/07/2025 6:58 AM EDT Essential (primary) hypertension THYROID STIMULATING HORMONE Routine 06/30/2025 5:01 AM EDT Hypothyroidism, unspecified THYROXINE FREE Routine 06/30/2025 5:01 AM EDT Hypothyroidism, unspecified CBC WITH AUTO DIFFERENTIAL Routine 06/28/2025 4:58 AM EDT Type 2 diabetes mellitus without complications (CMS/HCC V24, CMS/HCC V28) Heart failure, unspecified (CMS/HCC V24, CMS/HCC V28) ADALIMUMAB DRUG LEVEL AND NEUTRALIZING ANTIBODY Routine 06/28/2025 4:58 AM EDT Type 2 diabetes mellitus without complications (CMS/HCC V24, CMS/HCC V28) Heart failure, unspecified (CMS/HCC V24, CMS/HCC V28) CBC AND DIFFERENTIAL Routine 06/28/2025 4:58 AM EDT Type 2 diabetes mellitus without complications (CMS/HCC V24, CMS/HCC V28) Heart failure, unspecified (CMS/HCC V24, CMS/HCC V28) SEDIMENTATION RATE Routine 06/28/2025 4: 58 AM EDT Type 2 diabetes mellitus without complications (CMS/HCC V24, CMS/HCC V28) Heart failure, unspecified (CMS/HCC V24, CMS/HCC V28) C-REACTIVE PROTEIN Routine 06/28/2025 4: 56 AM EDT Type 2 diabetes mellitus without complications (CMS/HCC V24, CMS/HCC V28) Heart failure, unspecified (CMS/HCC V24, CMS/HCC V28) COMPREHENSIVE METABOLIC PANEL Routine 06/28/2025 4:56 AM EDT Type 2 diabetes mellitus without complications (CMS/HCC V24, CMS/HCC V28) Heart failure, unspecified (CMS/HCC V24, CMS/HCC V28) BASIC METABOLIC PANEL Routine 06/23/2025 6:20 AM EDT Heart failure, unspecified (CMS/HCC V24, CMS/HCC V28) Crohn's disease, unspecified, with unspecified complications (CMS/HCC V24, CMS/HCC V28) COMPLETE BLOOD COUNT Routine 06/23/2025 6:20 AM EDT Heart failure, unspecified (CMS/HCC V24, CMS/HCC V28) Crohn's disease, unspecified, with unspecified complications (CMS/HCC V24, CMS/HCC V28) BASIC METABOLIC PANEL Routine 06/19/2025 6:18 AM EDT Gastrointestinal hemorrhage, unspecified COMPLETE BLOOD COUNT Routine 06/19/2025 6:18 AM EDT Gastrointestinal hemorrhage, unspecified BASIC METABOLIC PANEL Routine 06/09/2025 7:05 AM EDT Essential (primary) hypertension COMPLETE BLOOD COUNT Routine 06/09/2025 7:05 AM EDT Essential (primary) hypertension URINALYSIS WITH REFLEX MICROSCOPIC AND CULTURE Routine 06/08/2025 3:00 PM EDT Altered mental status, unspecified STEWART URINE CULTURE TUBE Routine 06/08/2025 3:00 PM EDT Altered mental status, unspecified URINALYSIS WITH REFLEX MICROSCOPIC AND CULTURE Routine 06/08/2025 3:00 PM EDT Altered mental status, unspecified CULTURE URINE Routine 06/08/2025 3:00 PM EDT Altered mental status, unspecified LIPID PANEL WITH REFLEX TO DIRECT LDL Routine 04/03/2025 5:48 AM EDT Hypothyroidism, unspecified Chronic kidney disease, stage 3 unspecified ([facility] V24, [facility] V28) Pure hypercholesterolemia, unspecified Unspecified combined systolic (congestive) and diastolic (congestive) heart failure ([facility] V24, [facility] V28) from Last 3 Months or Most Recently Relevant to Health Maintenance Results * (ABNORMAL) Complete blood count (08/01/2025 10:10 AM EDT) Only the most recent of5 resultswithin the time period is included. Pathologist [facility] WBC 10.1 4.8 - 10.8 K/mcL LAB HEMETOLOGY METHOD 08/01/2025 11:32 AM [facility] RBC 3.30(L) 3.80 - 4.80 M/mcL LAB HEMETOLOGY METHOD 08/01/2025 11:32 AM [facility] Hemoglobin 9.7(L) 11.5 - 16.0 g/dL LAB HEMETOLOGY METHOD 08/01/2025 11:32 AM [facility] Hematocrit 31.9(L) 35.0 - 47.0 % LAB HEMETOLOGY METHOD 08/01/2025 11:32 AM [facility] MCV 97.0 79.0 - 98.0 FL LAB HEMETOLOGY METHOD 08/01/2025 11:32 AM [facility] MCH 29.5 27.0 - 32.0 pcg LAB HEMETOLOGY METHOD 08/01/2025 11:32 AM [facility] MCHC 30.4(L) 32.0 - 37.0 g/dL LAB HEMETOLOGY METHOD 08/01/2025 11:32 AM [facility] RDW 13.9 11.0 - 15.0 % LAB HEMETOLOGY METHOD 08/01/2025 11:32 AM [facility] Platelets 254 130 - 400 K/mcL LAB HEMETOLOGY METHOD 08/01/2025 11:32 AM EDT [facility] MPV 10.2 7.0 - 11.0 FL LAB HEMETOLOGY METHOD 08/01/2025 11:32 AM EDT [facility] NRBC 0.0 <1.0 % LAB HEMETOLOGY METHOD 08/01/2025 11:32 AM EDT [facility] NRBC Absolute 0.00 <0.10 K/mcL LAB HEMETOLOGY METHOD 08/01/2025 11:32 AM EDT [facility] Blood Venous blood specimen / Unknown Venipuncture / Unknown 08/01/2025 10:10 AM EDT 08/01/2025 11:15 AM EDT us Daron Randhawa MD LAB BLOOD ORDERABLES Final Resul t [facility] [address] [place] [address], * (ABNORMAL) Basic metabolic panel (08/01/2025 10:10 AM EDT) Only the most recent of5 resultswithin the time period is included. Sodium 138 133 - 145 mmol/L LAB CHEMISTRY METHOD 08/01/2025 2:08 PM [facility] Potassium 4.1 3.5 - 5.5 mmol/L LAB CHEMISTRY METHOD 08/01/2025 2:08 PM [facility] Chloride 108 96 - 110 mmol/L LAB CHEMISTRY METHOD 08/01/2025 2:08 PM [facility] CO2 26 21 - 32 mmol/L LAB CHEMISTRY METHOD 08/01/2025 2:08 PM [facility] Anion Gap 4 3 - 11 LAB CHEMISTRY METHOD 08/01/2025 2:08 PM [facility] Glucose 104(H) 70 - 100 mg/dL LAB CHEMISTRY METHOD 08/01/2025 2:08 PM EDT [facility] BUN 11 5 - 25 mg/dL LAB CHEMISTRY METHOD 08/01/2025 2:08 PM EDT [facility] Creatinine 0.89 0.50 - 1.10 mg/dL LAB CHEMISTRY METHOD 08/01/2025 2:08 PM EDT [facility] eGFR 63 >=60 mL/min/1. 73m2 LAB CHEMISTRY METHOD 08/01/2025 2:08 PM EDT [facility] Comment:Calculation based on the Chronic Kidney Disease Epidemiology Collaboration (CKD-EPI) equation refit without adjustment for race. BUN/Creatinine Ratio 12.4 LAB CHEMISTRY METHOD 08/01/2025 2:08 PM EDT [facility] Calcium 8.4(L) 8.5 - 10.5 mg/dL LAB CHEMISTRY METHOD 08/01/2025 2:08 PM EDT [facility] Blood Venous blood specimen / Unknown Venipuncture / Unknown 08/01/2025 10:10 AM EDT 08/01/2025 11:15 AM EDT us Daron Randhawa MD LAB BLOOD ORDERABLES Final Resul t [facility] [address] [place] [address], * (ABNORMAL) Thyroid stimulating hormone (06/30/2025 5:01 AM EDT) TSH <0.05(L) 0.40 - 4.00 mcIU/mL LAB CHEMISTRY METHOD 06/30/2025 12:16 PM EDT [facility] Blood Venous blood specimen / Unknown Venipuncture / Unknown 06/30/2025 5:01 AM EDT 06/30/2025 11:09 AM EDT us Daron Randhawa MD LAB BLOOD ORDERABLES Final Resul t [facility] [address] [place] [address], [place] [phone] * Thyroxine free (06/30/2025 5:01 AM EDT) Free T4 0.88 0.70 - 1.80 ng/dL LAB CHEMISTRY METHOD 06/30/2025 12:16 PM EDT [facility] Blood Venous blood specimen / Unknown Venipuncture / Unknown 06/30/2025 5:01 AM EDT 06/30/2025 11:09 AM EDT Daron Randhawa MD LAB BLOOD ORDERABLES Final Resul t Performing Organization Address [facility] de Phone Number [facility] [address] [place] [address], [place] [phone] * (ABNORMAL) Adalimumab drug level and neutralizing antibody (06/28/2025 4:58 AM EDT) [facility] Adalimumab QN with Reflex to Ab, S 1.0(L) mcg/mL 07/05/2025 2:29 PM EDT [facility] Comment: For concentrations of adalimumab less than or equal to 8.0 mcg/mL, reflex testing for [id number] will be performed. REFERENCE VALUE Limit of Quantitation = 0.8 mcg/mL ADDITIONAL INFORMATION This test was developed and its performance characteristics determined by [facility] in a manner consistent with CLIA requirements. This test has not been cleared or approved by the U.S. Food and Drug Administration. Test Performed by: [facility] - [address] [address] Patient Monitor: Annika Saxena Ph.D.; CLIA# [id number] Adalimumab Ab, S <10.0 <14.0 AU/mL 07/05/2025 2:29 PM EDT [facility] Comment: Absence of detectable [id number]. Low concentration of adalimumab may be attributable to other parameters related to adalimumab clearance. ADDITIONAL INFORMATION This test was developed and its performance characteristics determined by [facility] in a manner consistent with CLIA requirements. This test has not been cleared or approved by the U.S. Food and Drug Administration. Test Performed by: [facility] [place] [address] Patient Monitor: Annika Saxena Ph.D.; CLIA# [id number] Blood Venous blood specimen / Unknown Venipuncture / Unknown 06/28/2025 4:58 AM EDT 06/28/2025 8:23 AM EDT Daron Randhawa MD LAB BLOOD ORDERABLES Final Resul t [facility] [address] [place] [address] * (ABNORMAL) CBC auto differential (06/28/2025 4:58 AM EDT) [facility] Signature WBC 7.7 4.8 - 10.8 K/mcL LAB HEMETOLOGY METHOD 06/28/2025 8:37 AM EDT [facility] RBC 2.80(L) 3.80 - 4.80 M/mcL LAB HEMETOLOGY METHOD 06/28/2025 8:37 AM EDT [facility] Hemoglobin 8.9(L) 11.5 - 16.0 g/dL LAB HEMETOLOGY METHOD 06/28/2025 8:37 AM EDT [facility] Hematocrit 27.5(L) 35.0 - 47.0 % LAB HEMETOLOGY METHOD 06/28/2025 8:37 AM EDT [facility] MCV 98.9(H) 79.0 - 98.0 FL LAB HEMETOLOGY METHOD 06/28/2025 8:37 AM T [facility] MCH 32.0 27.0 - 32.0 pcg LAB HEMETOLOGY METHOD 06/28/2025 8:37 AM [facility] MCHC 32.4 32.0 - 37.0 g/dL LAB HEMETOLOGY METHOD 06/28/2025 8:37 AM [facility] RDW 14.9 11.0 - 15.0 % LAB HEMETOLOGY METHOD 06/28/2025 8:37 AM [facility] Platelets 274 130 - 400 K/mcL LAB HEMETOLOGY METHOD 06/28/2025 8:37 AM [facility] MPV 10.8 7.0 - 11.0 FL LAB HEMETOLOGY METHOD 06/28/2025 8:37 AM [facility] NRBC 0.0 <1.0 % LAB HEMETOLOGY METHOD 06/28/2025 8:37 AM [facility] NRBC Absolute 0.00 <0.10 K/mcL LAB HEMETOLOGY METHOD 06/28/2025 8:37 AM [facility] Neutrophils Relative 48.3 % LAB HEMETOLOGY METHOD 06/28/2025 8:37 AM [facility] Lymphocytes Relative 34.9 % LAB HEMETOLOGY METHOD 06/28/2025 8:37 AM [facility] Monocytes Relative 11.4 % LAB HEMETOLOGY METHOD 06/28/2025 8:37 AM [facility] Eosinophils Relative 4.3 % LAB HEMETOLOGY METHOD 06/28/2025 8:37 AM [facility] Basophils Relative 0.4 % LAB HEMETOLOGY METHOD 06/28/2025 8:37 AM EDT [facility] Immature Granulocytes Relative 0.7 % LAB HEMETOLOGY METHOD 06/28/2025 8:37 AM EDT [facility] Neutrophils Absolute 3.71 1.50 - 7.00 K/[facility] LAB HEMETOLOGY METHOD 06/28/2025 8:37 AM EDT [facility] Lymphocytes Absolute 2.67 1.00 - 5.00 K/[facility] LAB HEMETOLOGY METHOD 06/28/2025 8:37 AM EDT [facility] Monocytes Absolute 0.87 0.20 - 1.00 K/[facility] LAB HEMETOLOGY METHOD 06/28/2025 8:37 AM EDT [facility] Eosinophils Absolute 0.33 0.00 - 0.50 K/[facility] LAB HEMETOLOGY METHOD 06/28/2025 8:37 AM EDT [facility] Basophils Absolute 0.03 0.00 - 0.20 K/mcL LAB HEMETOLOGY METHOD 06/28/2025 8:37 AM EDT [facility] Immature Granulocytes Absolute 0.05(H) 0.00 - 0.03 K/mcL LAB HEMETOLOGY METHOD 06/28/2025 8:37 AM T [facility] Blood Venous blood specimen / Unknown Venipuncture / Unknown 06/28/2025 4:58 AM EDT 06/28/2025 8:21 AM EDT us Daron Randhawa MD LAB BLOOD ORDERABLES Final Resul t [facility] [address] [place] [address], * (ABNORMAL) Sedimentation rate (06/28/2025 4:58 AM EDT) Sed Rate 43(H) 0 - 30 mm/hr LAB HEMETOLOGY METHOD 06/28/2025 8:42 AM EDT [facility] Blood Venous blood specimen / Unknown Venipuncture / Unknown 06/28/2025 4:58 AM EDT 06/28/2025 8:21 AM EDT us Daron Randhawa MD LAB BLOOD ORDERABLES Final Resul t Performing Organization Address [facility]/ZIP Co de Phone Number [facility] [address] [place] [address], [place] [phone] * C-reactive protein (06/28/2025 4:56 AM EDT) C-Reactive Protein 0.36 <=0.50 mg/dL LAB CHEMISTRY METHOD 06/28/2025 8:52 AM EDT [facility] Blood Venous blood specimen / Unknown Venipuncture / Unknown 06/28/2025 4:56 AM EDT 06/28/2025 8:19 AM EDT us Daron Randhawa MD LAB BLOOD ORDERABLES Final Resul t Performing Organization Address [facility]/ZIP Co de Phone Number [facility] [address] [place] [address], [place] [phone] * (ABNORMAL) Comprehensive metabolic panel (06/28/2025 4:56 AM EDT) Sodium 141 133 - 145 mmol/L LAB CHEMISTRY METHOD 06/28/2025 8:52 AM EDT [facility] Potassium 5.1 3.5 - 5.5 mmol/L LAB CHEMISTRY METHOD 06/28/2025 8:52 AM EDT [facility] Chloride 114(H) 96 - 110 mmol/L LAB CHEMISTRY METHOD 06/28/2025 8:52 AM EDT [facility] CO2 22 21 - 32 mmol/L LAB CHEMISTRY METHOD 06/28/2025 8:52 AM EDT [facility] Anion Gap 5 3 - 11 LAB CHEMISTRY METHOD 06/28/2025 8:52 AM [facility] Glucose 61(L) 70 - 100 mg/dL LAB CHEMISTRY METHOD 06/28/2025 8:52 AM [facility] BUN 11 5 - 25 mg/dL LAB CHEMISTRY METHOD 06/28/2025 8:52 AM [facility] Creatinine 0.58 0.50 - 1.10 mg/dL LAB CHEMISTRY METHOD 06/28/2025 8:52 AM [facility] eGFR 88 >=60 mL/min/1. 73m2 LAB CHEMISTRY METHOD 06/28/2025 8:52 AM [facility] Comment:Calculation based on the Chronic Kidney Disease Epidemiology Collaboration (CKD-EPI) equation refit without adjustment for race. BUN/Creatinine Ratio 19.0 LAB CHEMISTRY METHOD 06/28/2025 8:52 AM [facility] Calcium 8.2(L) 8.5 - 10.5 mg/dL LAB CHEMISTRY METHOD 06/28/2025 8:52 AM [facility] AST (SGOT) 45(H) 10 - 42 unit/L LAB CHEMISTRY METHOD 06/28/2025 8:52 AM [facility] ALT (SGPT) 27 10 - 60 unit/L LAB CHEMISTRY METHOD 06/28/2025 8:52 AM [facility] Alkaline Phosphatase 166(H) 42 - 121 unit/L LAB CHEMISTRY METHOD 06/28/2025 8:52 AM [facility] Total Protein 5.4(L) 6.0 - 8.0 g/dL LAB CHEMISTRY METHOD 06/28/2025 8:52 AM [facility] Albumin 2.2(L) 3.2 - 5.0 g/dL LAB CHEMISTRY METHOD 06/28/2025 8:52 AM [facility] Total Bilirubin 0.2 0.0 - 1.4 mg/dL LAB CHEMISTRY METHOD 06/28/2025 8:52 AM [facility] Blood Venous blood specimen / Unknown Venipuncture / Unknown 06/28/2025 4:56 AM EDT 06/28/2025 8:19 AM EDT us Daron Randhawa MD LAB BLOOD ORDERABLES Final Resul t [facility] [address] [place] [address], [place] [phone] * (ABNORMAL) Urinalysis with reflex microscopic and culture (06/08/2025 3:00 PM EDT) Specific [place] Urine 1.016 1.003 - 1.030 LAB URINALYSIS - AUTOMATED METHOD 06/09/2025 11:45 AM [facility] pH, Urine 6.0 5.0 - 8.0 pH LAB URINALYSIS - AUTOMATED METHOD 06/09/2025 11:45 AM [facility] Leukocytes, Urine Small(A) Negative LAB URINALYSIS - AUTOMATED METHOD 06/09/2025 11:45 AM [facility] Nitrite, Urine Negative Negative LAB URINALYSIS - AUTOMATED METHOD 06/09/2025 11:45 AM [facility] Protein, Urine Negative <=Trace mg/dL LAB URINALYSIS - AUTOMATED METHOD 06/09/2025 11:45 AM [facility] Glucose, Urine Negative Negative mg/dL LAB URINALYSIS - AUTOMATED METHOD 06/09/2025 11:45 AM [facility] Ketones, Urine Negative Negative mg/dL LAB URINALYSIS - AUTOMATED METHOD 06/09/2025 11:45 AM [facility] Urobilinogen, Urine 0.2 0.2 - 1.0 mg/dL LAB URINALYSIS - AUTOMATED METHOD 06/09/2025 11:45 AM [facility] Bilirubin, Urine Negative Negative LAB URINALYSIS - AUTOMATED METHOD 06/09/2025 11:45 AM EDT [facility] Blood, Urine Negative Negative LAB URINALYSIS - AUTOMATED METHOD 06/09/2025 11:45 AM [facility] RBC, Urine 0.8 0 - 4 /HPF LAB URINALYSIS - AUTOMATED METHOD 06/09/2025 11:45 AM [facility] WBC, Urine 12.4(H) 0 - 4 /HPF LAB URINALYSIS - AUTOMATED METHOD 06/09/2025 11:45 AM [facility] Squamous Epithelial, Urine 14 0 - 60 /LPF LAB URINALYSIS - AUTOMATED METHOD 06/09/2025 11:45 AM [facility] Bacteria, Urine Negative Negative /HPF LAB URINALYSIS - AUTOMATED METHOD 06/09/2025 11:45 AM [facility] Hyaline Casts, Urine 1.2 0 - 3 /LPF LAB URINALYSIS - AUTOMATED METHOD 06/09/2025 11:45 AM [facility] Urine Urine specimen obtained by clean catch procedure / Unknown 06/08/2025 3:00 PM EDT 06/09/2025 9:25 AM EDT us Daron Randhawa MD LAB URINE ORDERABLES Final Resul t [facility] [address] [place] [address], * Stewart urine culture tube (06/08/2025 3:00 PM EDT) Extra Tube Hold for add-ons. 06/09/2025 11:01 AM EDT [facility] Comment:Auto resulted. Urine Urine specimen obtained by clean catch procedure / Unknown 06/08/2025 3:00 PM EDT 06/09/2025 9:25 AM EDT us Daron Randhawa MD LAB URINE ORDERABLES Final Resul t Performing Organization Address City/[facility]/ZIP Co de Phone Number [facility] [address] [place] [address], [place] [phone] * Culture urine (06/08/2025 3:00 PM EDT) Culture, Urine No growth 06/10/2025 7:19 AM EDT [facility] Urine Urine specimen obtained by clean catch procedure / Unknown 06/08/2025 3:00 PM EDT 06/09/2025 11:45 AM EDT us Daron Randhawa MD LAB MICROBIOLOGY - GENERAL ORDER AFIA Final Result Performing Organization Address [facility]/ZIP Co de Phone Number [facility] [address] [place] [address], [place] [phone] * Lipid panel with reflex to direct LDL (04/03/2025 5:48 AM EDT) Cholesterol 99 0 - 200 mg/dL LAB CHEMISTRY METHOD 04/03/2025 12:14 PM [facility] Triglycerides 80 0 - 150 mg/dL LAB CHEMISTRY METHOD 04/03/2025 12:[facility] HDL 54 >=40 mg/dL LAB CHEMISTRY METHOD 04/03/2025 12:14 PM EDT [facility] LDL Calculated 29 0 - 100 mg/dL LAB CHEMISTRY METHOD 04/03/2025 12:[facility] VLDL Cholesterol Blake 16 mg/dL LAB CHEMISTRY METHOD 04/03/2025 12:14 PM T [facility] Non HDL Chol. (LDL+VLDL) 45 <145 mg/dL LAB CHEMISTRY METHOD 04/03/2025 12:[facility] Chol/HDL Ratio 1.8 0.0 - 4.4 LAB CHEMISTRY METHOD 04/03/2025 12:14 PM EDT [facility] Blood Venous blood specimen / Unknown Venipuncture / Unknown 04/03/2025 5:48 AM EDT 04/03/2025 10:21 AM EDT us Daron Randhawa MD LAB BLOOD ORDERABLES Final Resul t [facility] ([facility] [address] [place] [address], [place] [phone] from Last 3 Months or Most Recently Relevant to Health Maintenance Insurance MEDICARE [place]ICA[place] - [place] Care Teams Business Management Analyst Relationship Specialty Start Date End Date Yanelis Montgomery NP [address] [place] [id number] PCP - General Internal Medicine 03/18/22
--- OUTSIDE RECORDS SUMMARY | 2025-09-07 21:54 | XMS_ITS | Encounter Summary ---
Author Organization [facility] Address [address] [place] [address] Care Team Providers Care Supervisor Records Change Name Role Phone Yanelis Montgomery NP Primary Care Provider +1- [phone] Encounter Details Date Type Department Care Team (Late st Contact Info) Description 12/23/2024 Lab Requisition [facility] - Main Lab [address] [facility] [place] [address] Daron Randhawa MD [address] [place], [place] [id number] Other seizures (CMS/HCC V24, CMS/HCC V28) Social History Tobacco [...] Procedure Name Priority Date/Time Associated Diagnosis Comments SST - GOLD Routine 12/23/2024 6:04 AM EDT Other seizures (CMS/HCC) OXCARBAZEPINE LEVEL Routine 12/23/2024 6 :04 AM EDT Other seizures (CMS/HCC) documented in this encounter Results * SST tube (12/23/2024 6:04 AM EDT) Extra Tube Hold for add-ons. 12/23/2024 12:02 PM EDT [facility] ([facility]) [facility] Comment:Auto resulted. Blood Venous blood specimen / Unknown Venipuncture / Unknown 12/23/2024 6:04 AM EDT 12/23/2024 10:36 AM EDT Daron Randhawa MD LAB BLOOD ORDERABLES Final Resul t Performing Organization Address City/[facility]/ZIP Co de Phone Number [facility] [address] [place] [address], * Oxcarbazepine level (12/23/2024 6:04 AM EDT) Oxcarbazepine 27.1 10 - 35 ug/mL 12/26/2024 10:02 AM EDT [facility] Comment: If applicable, any drug confirmation testing reported here was developed and the performance characteristics determined by [facility]. This confirmation testing has not been cleared or approved by the FDA. The laboratory is regulated under CLIA as qualified to perform high-complexity testing. This test is used for patient testing purposes. It should not be regarded as investigational or for research. Test performed at [facility], [address] [place] [address] Delmy Hurst MD, PhD - Log Truck Driver Blood Venous blood specimen / Unknown Venipuncture / Unknown 12/23/2024 6:04 AM EDT 12/23/2024 10:36 AM EDT Daron Randhawa MD LAB BLOOD ORDERABLES Final Resul t [facility] [address] [place] [address] documented in this encounter Visit Diagnoses Diagnosis Other seizures (CMS/HCC V24, CMS/HCC V28) documented in this encounter Care Teams Supervisor Records Change Relationship Specialty Start Date End Date Yanelis Montgomery NP [address] [place] [address] PCP - General Internal Medicine 03/18/22 documented as of this encounter
--- OUTSIDE RECORDS SUMMARY | 2025-09-07 21:54 | XMS_ITS | Encounter Summary ---
Author Organization [facility] Address [address] [place] [address] Care Team Providers Care Feed Handler Name Role Phone Yanelis Montgomery NP Primary Care Provider +1- [phone] Encounter Details Date Type Department Care Team (Late st Contact Info) Description 01/19/2025 Lab Requisition [facility] - Main Lab [address] [facility] [place] [address] Daron Randhawa MD [address] [place], [place] [id number] Heart failure, unspecified (CMS/HCC V24, CMS/HCC V28); Hypothyroidism, unspecified [...] Associated Diagnosis Comments COMPLETE BLOOD COUNT Routine 01/19/2025 4:48 AM EDT Heart failure, unspecified (CMS/HCC V24, CMS/HCC V28) Hypothyroidism, unspecified THYROXINE TOTAL Routine 01/19/2025 4:48 AM EDT Heart failure, unspecified (CMS/HCC V24, CMS/HCC V28) Hypothyroidism, unspecified BASIC METABOLIC PANEL Routine 01/19/2025 4:48 AM EDT Heart failure, unspecified (CMS/HCC V24, CMS/HCC V28) Hypothyroidism, unspecified documented in this encounter Results * (ABNORMAL) Thyroxine total (01/19/2025 4:48 AM EDT) Pathologist [facility] T4, Total 2.4(L) 4.5 - 10.9 mcg/dL LAB CHEMISTRY METHOD 01/19/2025 12:54 PM [facility] Blood Venous blood specimen / Unknown Venipuncture / Unknown 01/19/2025 4:48 AM EDT 01/19/2025 10:50 AM EDT us Daron Randhawa MD LAB BLOOD ORDERABLES Final Resul t [facility] [address] [place] [address], [place] [phone] * (ABNORMAL) Basic metabolic panel (01/19/2025 4:48 AM EDT) [facility] Sodium 138 133 - 145 mmol/L LAB CHEMISTRY METHOD 01/19/2025 12:02 PM [facility] Potassium 4.6 3.5 - 5.5 mmol/L LAB CHEMISTRY METHOD 01/19/2025 12:02 PM [facility] Chloride 104 96 - 110 mmol/L LAB CHEMISTRY METHOD 01/19/2025 12:02 PM [facility] CO2 30 21 - 32 mmol/L LAB CHEMISTRY METHOD 01/19/2025 12:02 PM [facility] Anion Gap 4 3 - 11 LAB CHEMISTRY METHOD 01/19/2025 12:02 PM [facility] Glucose 57(L) 70 - 100 mg/dL LAB CHEMISTRY METHOD 01/19/2025 12:02 PM [facility] BUN 18 5 - 25 mg/dL LAB CHEMISTRY METHOD 01/19/2025 12:02 PM [facility] Creatinine 0.94 0.50 - 1.10 mg/dL LAB CHEMISTRY METHOD 01/19/2025 12:[facility] PM [facility] eGFR 59(L) >=60 mL/min/1. 73m2 LAB CHEMISTRY METHOD 01/19/2025 12:02 PM EDT [facility] Comment:Calculation based on the Chronic Kidney Disease Epidemiology Collaboration (CKD-EPI) equation refit without adjustment for race. BUN/Creatinine Ratio 19.1 LAB CHEMISTRY METHOD 01/19/2025 12:02 PM [facility] Calcium 8.6 8.5 - 10.5 mg/dL LAB CHEMISTRY METHOD 01/19/2025 12:02 PM [facility] Blood Venous blood specimen / Unknown Venipuncture / Unknown 01/19/2025 4:48 AM EDT 01/19/2025 10:50 AM EDT Daron Randhawa MD LAB BLOOD ORDERABLES Final Resul t [facility] [address] [place] [address], [place] [phone] * (ABNORMAL) Complete blood count (01/19/2025 4:48 AM EDT) WBC 19.6(H) 4.8 - 10.8 K/mcL LAB HEMETOLOGY METHOD 01/19/2025 11:21 AM [facility] RBC 3.10(L) 3.80 - 4.80 M/mcL LAB HEMETOLOGY METHOD 01/19/2025 11:21 AM [facility] Hemoglobin 10.2(L) 11.5 - 16.0 g/dL LAB HEMETOLOGY METHOD 01/19/2025 11:21 AM [facility] Hematocrit 32.1(L) 35.0 - 47.0 % LAB HEMETOLOGY METHOD 01/19/2025 11:21 AM [facility] MCV 102.6(H) 79.0 - 98.0 FL LAB HEMETOLOGY METHOD 01/19/2025 11:21 AM EDT [facility] MCH 32.6(H) 27.0 - 32.0 pcg LAB HEMETOLOGY METHOD 01/19/2025 11:21 AM T [facility] MCHC 31.8(L) 32.0 - 37.0 g/dL LAB HEMETOLOGY METHOD 01/19/2025 11:21 AM T [facility] RDW 16.5(H) 11.0 - 15.0 % LAB HEMETOLOGY METHOD 01/19/2025 11:21 AM T [facility] Platelets 241 130 - 400 K/mcL LAB HEMETOLOGY METHOD 01/19/2025 11:21 AM [facility] MPV 10.7 7.0 - 11.0 FL LAB HEMETOLOGY METHOD 01/19/2025 11:21 AM EDT [facility] NRBC 0.0 <1.0 % LAB HEMETOLOGY METHOD 01/19/2025 11:21 AM [facility] NRBC Absolute 0.00 <0.10 K/mcL LAB HEMETOLOGY METHOD 01/19/2025 11:21 AM [facility] Blood Venous blood specimen / Unknown Venipuncture / Unknown 01/19/2025 4:48 AM EDT 01/19/2025 10:50 AM EDT us Daron Randhawa MD LAB BLOOD ORDERABLES Final Resul t [facility] [address] [place] [address], documented in this encounter Visit Diagnoses Diagnosis Heart failure, unspecified (CMS/HCC V24, CMS/HCC V28) Heart failure, unspecified Hypothyroidism, unspecified documented in this encounter Care Teams Feed Handler Relationship Specialty Start Date End Date Yanelis Montgomery NP [address] [place] [address] PCP - General Internal Medicine 03/18/22 documented as of this encounter
--- OUTSIDE RECORDS SUMMARY | 2025-09-07 21:54 | XMS_ITS | Encounter Summary ---
Author Organization [facility] Address [address] [place] [address] Care Team Providers Care Networking Technician Name Role Phone Yanelis Montgomery NP Primary Care Provider +1- [phone] Encounter Details Date Type Department Care Team (Late st Contact Info) Description 06/09/2025 Lab Requisition [facility] - Main Lab 299 [facility] [place] [address] Daron Randhawa MD [address] [place] [address] Altered mental status, unspecified Social History Tobacco Use Types Packs/Day [...] Procedure Name Priority Date/Time Associated Diagnosis Comments URINALYSIS WITH REFLEX MICROSCOPIC AND CULTURE Routine 06/08/2025 3:00 PM EDT Altered mental status, unspecified STEWART URINE CULTURE TUBE Routine 06/08/2025 3:00 PM EDT Altered mental status, unspecified URINALYSIS WITH REFLEX MICROSCOPIC AND CULTURE Routine 06/08/2025 3:00 PM EDT Altered mental status, unspecified CULTURE URINE Routine 06/08/2025 3:00 PM EDT Altered mental status, unspecified documented in this encounter Results * Culture urine (06/08/2025 3:00 PM EDT) Pathologist [facility] Culture, Urine No growth 06/10/2025 7:19 AM [facility] Urine Urine specimen obtained by clean catch procedure / Unknown 06/08/2025 3:00 PM EDT 06/09/2025 11:45 AM EDT us Daron Randhawa MD LAB MICROBIOLOGY - GENERAL ORDER AFIA Final Result [facility] [address] [place] [address], [place] [phone] * (ABNORMAL) Urinalysis with reflex microscopic and culture (06/08/2025 3:00 PM EDT) [facility] Specific [place] Urine 1.016 1.003 - 1.030 LAB URINALYSIS - AUTOMATED METHOD 06/09/2025 11:45 AM [facility] pH, Urine 6.0 5.0 - 8.0 pH LAB URINALYSIS - AUTOMATED METHOD 06/09/2025 11:45 AM [facility] Leukocytes, Urine Small(A) Negative LAB URINALYSIS - AUTOMATED METHOD 06/09/2025 11:45 AM [facility] Nitrite, Urine Negative Negative LAB URINALYSIS - AUTOMATED METHOD 06/09/2025 11:45 AM [facility] Protein, Urine Negative <=Trace mg/dL LAB URINALYSIS - AUTOMATED METHOD 06/09/2025 11:45 AM [facility] Glucose, Urine Negative Negative mg/dL LAB URINALYSIS - AUTOMATED METHOD 06/09/2025 11:45 AM [facility] Ketones, Urine Negative Negative mg/dL LAB URINALYSIS - AUTOMATED METHOD 06/09/2025 11:45 AM [facility] Urobilinogen, Urine 0.2 0.2 - 1.0 mg/dL LAB URINALYSIS - AUTOMATED METHOD 06/09/2025 11:45 AM EDT [facility] Bilirubin, Urine Negative Negative LAB URINALYSIS - AUTOMATED METHOD 06/09/2025 11:45 AM T [facility] Blood, Urine Negative Negative LAB URINALYSIS - AUTOMATED METHOD 06/09/2025 11:45 AM [facility] RBC, Urine 0.8 0 - 4 /HPF LAB URINALYSIS - AUTOMATED METHOD 06/09/2025 11:45 AM [facility] WBC, Urine 12.4(H) 0 - 4 /HPF LAB URINALYSIS - AUTOMATED METHOD 06/09/2025 11:45 AM [facility] Squamous Epithelial, Urine 14 0 - 60 /LPF LAB URINALYSIS - AUTOMATED METHOD 06/09/2025 11:45 AM [facility] Bacteria, Urine Negative Negative /HPF LAB URINALYSIS - AUTOMATED METHOD 06/09/2025 11:45 AM [facility] Hyaline Casts, Urine 1.2 0 - 3 /LPF LAB URINALYSIS - AUTOMATED METHOD 06/09/2025 11:45 AM [facility] Urine Urine specimen obtained by clean catch procedure / Unknown 06/08/2025 3:00 PM EDT 06/09/2025 9:25 AM EDT Daron Randhawa MD LAB URINE ORDERABLES Final Resul t [facility] [address] [place] [address], * Stewart urine culture tube (06/08/2025 3:00 PM EDT) Extra Tube Hold for add-ons. 06/09/2025 11:01 AM EDT [facility] Comment:Auto resulted. Urine Urine specimen obtained by clean catch procedure / Unknown 06/08/2025 3:00 PM EDT 06/09/2025 9:25 AM EDT us Daron Randhawa MD LAB URINE ORDERABLES Final Resul t [facility] ([facility]) [facility] [address] [place] [address], documented in this encounter Visit Diagnoses Diagnosis Altered mental status, unspecified documented in this encounter Care Teams Networking Technician Relationship Specialty Start Date End Date Yanelis Montgomery NP [address] [place] [phone] PCP - General Internal Medicine 03/18/22 documented as of this encounter
--- OUTSIDE RECORDS SUMMARY | 2025-09-07 21:54 | XMS_ITS | Encounter Summary ---
Author Organization [facility] Address [address] [place] [address] Care Team Providers Care Sleeping Car Service Attendant Name Role Phone Yanelis Montgomery NP Primary Care Provider +1- [phone] Encounter Details Date Type Department Care Team (Late st Contact Info) Description 06/27/2025 Lab Requisition [facility] - Main Lab 299 [facility] [place] [address] Daron Randhawa MD [address] [place], [place] [phone] Type 2 diabetes mellitus without complications (CMS/HCC V24, CMS/HCC V28); Heart failure, unspecified (CMS/HCC V24, CMS/HCC V28) Social History [...] Procedure Name Priority Date/Time Associated Diagnosis Comments ADALIMUMAB DRUG LEVEL AND NEUTRALIZING ANTIBODY Routine 06/28/2025 4:58 AM EDT Type 2 diabetes mellitus without complications (CMS/HCC V24, CMS/HCC V28) Heart failure, unspecified (CMS/HCC V24, CMS/HCC V28) CBC WITH AUTO DIFFERENTIAL Routine 06/28/2025 4:58 [...] Heart failure, unspecified (CMS/HCC V24, CMS/HCC V28) documented in this encounter Results * (ABNORMAL) CBC auto differential (06/28/2025 4:58 AM EDT) [facility] WBC 7.7 4.8 - 10.8 K/mcL LAB HEMETOLOGY METHOD 06/28/2025 8:37 AM [facility] RBC 2.80(L) 3.80 - 4.80 M/mcL LAB HEMETOLOGY METHOD 06/28/2025 8:37 AM [facility] Hemoglobin 8.9(L) 11.5 - 16.0 g/dL LAB HEMETOLOGY METHOD 06/28/2025 8:37 AM [facility] Hematocrit 27.5(L) 35.0 - 47.0 % LAB HEMETOLOGY METHOD 06/28/2025 8:37 AM [facility] MCV 98.9(H) 79.0 - 98.0 FL LAB HEMETOLOGY METHOD 06/28/2025 8:37 AM [facility] MCH 32.0 27.0 - 32.0 pcg LAB HEMETOLOGY METHOD 06/28/2025 8:37 AM [facility] MCHC 32.4 32.0 - 37.0 g/dL LAB HEMETOLOGY METHOD 06/28/2025 8:37 AM [facility] RDW 14.9 11.0 - 15.0 % LAB HEMETOLOGY METHOD 06/28/2025 8:37 AM T [facility] Platelets 274 130 - 400 K/mcL LAB HEMETOLOGY METHOD 06/28/2025 8:37 AM [facility] MPV 10.8 7.0 - 11.0 FL LAB HEMETOLOGY METHOD 06/28/2025 8:37 AM [facility] NRBC 0.0 <1.0 % LAB HEMETOLOGY METHOD 06/28/2025 8:37 AM [facility] NRBC Absolute 0.00 <0.10 K/mcL LAB HEMETOLOGY METHOD 06/28/2025 8:37 AM [facility] Neutrophils Relative 48.3 % LAB HEMETOLOGY METHOD 06/28/2025 8:37 AM [facility] Lymphocytes Relative 34.9 % LAB HEMETOLOGY METHOD 06/28/2025 8:37 AM [facility] Monocytes Relative 11.4 % LAB HEMETOLOGY METHOD 06/28/2025 8:37 AM [facility] Eosinophils Relative 4.3 % LAB HEMETOLOGY METHOD 06/28/2025 8:37 AM [facility] Basophils Relative 0.4 % LAB HEMETOLOGY METHOD 06/28/2025 8:37 AM [facility] Immature Granulocytes Relative 0.7 % LAB HEMETOLOGY METHOD 06/28/2025 8:37 AM EDT [facility] Neutrophils Absolute 3.71 1.50 - 7.00 K/mcL LAB HEMETOLOGY METHOD 06/28/2025 8:37 AM EDT [facility] Lymphocytes Absolute 2.67 1.00 - 5.00 K/mcL LAB HEMETOLOGY METHOD 06/28/2025 8:37 AM EDT [facility] Monocytes Absolute 0.87 0.20 - 1.00 K/mcL LAB HEMETOLOGY METHOD 06/28/2025 8:37 AM EDT [facility] Eosinophils Absolute 0.33 0.00 - 0.50 K/mcL LAB HEMETOLOGY METHOD 06/28/2025 8:37 AM EDT [facility] Basophils Absolute 0.03 0.00 - 0.20 K/mcL LAB HEMETOLOGY METHOD 06/28/2025 8:37 AM EDT [facility] Immature Granulocytes Absolute 0.05(H) 0.00 - 0.03 K/mcL LAB HEMETOLOGY METHOD 06/28/2025 8:37 AM EDT [facility] Blood Venous blood specimen / Unknown Venipuncture / Unknown 06/28/2025 4:58 AM EDT 06/28/2025 8:21 AM EDT us Daron Randhawa MD LAB BLOOD ORDERABLES Final Resul t [facility] [address] [place] [address], * (ABNORMAL) Adalimumab drug level and neutralizing antibody (06/28/2025 4:58 AM EDT) Adalimumab QN with Reflex to Ab, S 1.0(L) mcg/mL 07/05/2025 2:29 PM EDT [facility] Comment: For concentrations of adalimumab less than or equal to 8.0 mcg/mL, reflex testing for [id number] will be performed. REFERENCE VALUE Limit of Quantitation = 0.8 mcg/mL ADDITIONAL INFORMATION This test was developed and its performance characteristics determined by [facility] in a manner consistent with CLIA requirements. This test has not been cleared or approved by the U.S. Food and Drug Administration. Test Performed by: [facility] [employer] [place] [address] Lead Programmer Analyst: Annika Saxena Ph.D.; CLIA# [id number] Adalimumab Ab, S <10.0 <14.0 AU/mL 07/05/2025 2:29 PM EDT [facility] Comment: Absence of detectable xixpeujm-us-xjufwfkkxd. Low concentration of adalimumab may be attributable to other parameters related to adalimumab clearance. ADDITIONAL INFORMATION This test was developed and its performance characteristics determined by [facility] in a manner consistent with CLIA requirements. This test has not been cleared or approved by the U.S. Food and Drug Administration. Test Performed by: [facility] [employer] [place] [address] Lead Programmer Analyst: Annika Saxena Ph.D.; CLIA# [id number] Blood Venous blood specimen / Unknown Venipuncture / Unknown 06/28/2025 4:58 AM EDT 06/28/2025 8:23 AM EDT us Daron Randhawa MD LAB BLOOD ORDERABLES Final Resul t [facility] [address] [place] [address] * (ABNORMAL) Sedimentation rate (06/28/2025 4:58 AM EDT) Pathologist [facility] Sed Rate 43(H) 0 - 30 mm/hr LAB HEMETOLOGY METHOD 06/28/2025 8:42 AM EDT [facility] Blood Venous blood specimen / Unknown Venipuncture / Unknown 06/28/2025 4:58 AM EDT 06/28/2025 8:21 AM EDT us Daron Randhwaa MD LAB BLOOD ORDERABLES Final Resul t Performing Organization Address [facility] Co de Phone Number [facility] [address] [place] [address], [place] [phone] * C-reactive protein (06/28/2025 4:56 AM EDT) [facility] C-Reactive Protein 0.36 <=0.50 mg/dL LAB CHEMISTRY METHOD 06/28/2025 8:52 AM EDT [facility] Blood Venous blood specimen / Unknown Venipuncture / Unknown 06/28/2025 4:56 AM EDT 06/28/2025 8:19 AM EDT us Daron Randhawa MD LAB BLOOD ORDERABLES Final Resul t Performing Organization Address [facility] de Phone Number [facility] [address] [place] [address], [place] [phone] * (ABNORMAL) Comprehensive metabolic panel (06/28/2025 4:56 AM EDT) [facility] Sodium 141 133 - 145 mmol/L LAB CHEMISTRY METHOD 06/28/2025 8:52 AM EDT [facility] Potassium 5.1 3.5 - 5.5 mmol/L LAB CHEMISTRY METHOD 06/28/2025 8:52 AM EDT [facility] Chloride 114(H) 96 - 110 mmol/L LAB CHEMISTRY METHOD 06/28/2025 8:52 AM EDT [facility] CO2 22 21 - 32 mmol/L LAB CHEMISTRY METHOD 06/28/2025 8:52 AM [facility] Anion Gap 5 3 - 11 LAB CHEMISTRY METHOD 06/28/2025 8:52 AM [facility] Glucose 61(L) 70 - 100 mg/dL LAB CHEMISTRY METHOD 06/28/2025 8:52 AM [facility] BUN 11 5 - 25 mg/dL LAB CHEMISTRY METHOD 06/28/2025 8:52 AM [facility] Creatinine 0.58 0.50 - 1.10 mg/dL LAB CHEMISTRY METHOD 06/28/2025 8:52 AM [facility] eGFR 88 >=60 mL/min/1. 73m2 LAB CHEMISTRY METHOD 06/28/2025 8:52 AM [facility] Comment:Calculation based on the Chronic Kidney Disease Epidemiology Collaboration (CKD-EPI) equation refit without adjustment for race. BUN/Creatinine Ratio 19.0 LAB CHEMISTRY METHOD 06/28/2025 8:52 AM [facility] Calcium 8.2(L) 8.5 - 10.5 mg/dL LAB CHEMISTRY METHOD 06/28/2025 8:52 AM [facility] AST (SGOT) 45(H) 10 - 42 unit/L LAB CHEMISTRY METHOD 06/28/2025 8:52 AM [facility] ALT (SGPT) 27 10 - 60 unit/L LAB CHEMISTRY METHOD 06/28/2025 8:52 AM [facility] Alkaline Phosphatase 166(H) 42 - 121 unit/L LAB CHEMISTRY METHOD 06/28/2025 8:52 AM [facility] Total Protein 5.4(L) 6.0 - 8.0 g/dL LAB CHEMISTRY METHOD 06/28/2025 8:52 AM [facility] Albumin 2.2(L) 3.2 - 5.0 g/dL LAB CHEMISTRY METHOD 06/28/2025 8:52 AM [facility] Total Bilirubin 0.2 0.0 - 1.4 mg/dL LAB CHEMISTRY METHOD 06/28/2025 8:52 AM EDT [facility] Blood Venous blood specimen / Unknown Venipuncture / Unknown 06/28/2025 4:56 AM EDT 06/28/2025 8:19 AM EDT us Daron Randhawa MD LAB BLOOD ORDERABLES Final Resul t [facility] [address] [place] [address], documented in this encounter Visit Diagnoses Diagnosis Type 2 diabetes mellitus without complications (CMS/HCC V24, CMS/HCC V28) Heart failure, unspecified (CMS/HCC V24, CMS/HCC V28) Heart failure, unspecified documented in this encounter Care Teams Sleeping Car Service Attendant Relationship Specialty Start Date End Date Yanelis Montgomery NP [address] [place] [id number] PCP - General Internal Medicine 03/18/22 documented as of this encounter
--- OUTSIDE RECORDS SUMMARY | 2025-09-07 21:54 | XMS_ITS | Encounter Summary ---
Author Organization [facility] Address [address] [place] [address] Care Team Providers Care Porcelain Turner Name Role Phone Yanelis Montgomery NP Primary Care Provider [phone]- [phone] Encounter Details Date Type Department Care Team (Late st Contact Info) Description 06/29/2025 Lab Requisition [facility] - Main Lab [address] [facility] [place] [address] Daron Randhawa MD [address] [place] [address] Hypothyroidism, unspecified Social History Tobacco Use Types [...] Associated Diagnosis Comments THYROID STIMULATING HORMONE Routine 06/30/2025 5:01 AM EDT Hypothyroidism, unspecified THYROXINE FREE Routine 06/30/2025 5:01 AM EDT Hypothyroidism, unspecified documented in this encounter Results * (ABNORMAL) Thyroid stimulating hormone (06/30/2025 5:01 AM EDT) TSH <0.05(L) 0.40 - 4.00 mcIU/mL LAB CHEMISTRY METHOD 06/30/2025 12:16 PM EDT [facility] ([facility]) [facility] Blood Venous blood specimen / Unknown Venipuncture / Unknown 06/30/2025 5:01 AM EDT 06/30/2025 11:09 AM EDT Daron Randhawa MD LAB BLOOD ORDERABLES Final Resul t Performing Organization Address City/[facility]/ZIP Co de Phone Number [facility] [address] [place] [address], [place] [phone] * Thyroxine free (06/30/2025 5:01 AM EDT) Free T4 0.88 0.70 - 1.80 ng/dL LAB CHEMISTRY METHOD 06/30/2025 12:16 PM EDT [facility] Blood Venous blood specimen / Unknown Venipuncture / Unknown 06/30/2025 5:01 AM EDT 06/30/2025 11:09 AM EDT Daron Randhawa MD LAB BLOOD ORDERABLES Final Resul t Performing Organization Address City/[facility] Co de Phone Number [facility] [address] [place] [address], [place] [phone] documented in this encounter Visit Diagnoses Diagnosis Hypothyroidism, unspecified documented in this encounter Care Teams Porcelain Turner Relationship Specialty Start Date End Date Yanelis Montgomery NP [address] [place] [address] PCP - General Internal Medicine 03/18/22 documented as of this encounter
--- OUTSIDE RECORDS SUMMARY | 2025-09-07 21:54 | XMS_ITS | Encounter Summary ---
Author Organization [facility] Address [address] [facility] [address] [place] [address] Phone Care Team Providers Care Telephone Clerk Name Role Phone Kristi Wilhelm NP Primary Care Provide r Yanelis Montgomery CNP Primary Care Provide r Dirk Guillory MD Unavailable [phone] To Matthews DO Unavailable Magda Clement OT Unavailable [phone] Magda Clement OT Unavailable [phone] Unknown, Unknown Primary Care Provider Raleigh Uribe MD Primary Care Provider + Encounter Details Date Type Department Care Team (Late st Contact Info) Description 06/28/2021 Transcribe Orders [address] [place] [address] Kristi Wilhelm, AUTO INSPECTOR [address] [place] [address] [email or web address] Social History Tobacco Use Types Packs/Day Years [...] Description 01/04/2026 10:30 AM EDT Office Visit [facility] Neurology [address] [place] [address] Km Dash MD [address] [place] [address] [email or web address] documented as of this encounter Visit Diagnoses Not on filedocumented in this encounter Additional Health Concerns Infection Onset Date Last Indicated Resolved Time CoV-Risk 09/16/2023 09/22/2023 10/03/2023 1:22 AM EST documented as of this encounter Care Teams Telephone Clerk Relationship Specialty Start Date End Date Kristi Wilhelm NP [email or web address] PCP - General 06/27/21 08/20/21 Yanelis Montgomery, YULY [address] [place] [address] [place] [address] PCP - General Family Medicine 08/21/21 12/13/23 Unknown, Unknown, MD PCP - General 12/14/23 01/03/24 Raleigh Cook MD [address] [place] [address] PCP - General Internal Medicine 01/04/24 Dirk Guillory MD [address] [place] [address] Medical Oncology 11/12/21 To Matthews DO [address] [place] [address] [email or web address] Insurance Assigned Provider 01/16/24 10/17/24 Magda Clement, OT [address] [place] [address] [email or web address] Transitions National Sales AssociateProfessor Of Physical Education Therapy 05/12/23 05/13/23 Magda Clement, OT [address] [place] [address] [email or web address] Transitions National Sales AssociateProfessor Of Physical Education Therapy 07/02/23 07/05/23 documented as of this encounter Additional Source Comments The information contained in this document represents components of the legal health record. It is not the complete legal health record.[facility]
--- OUTSIDE RECORDS SUMMARY | 2025-09-07 21:54 | XMS_ITS | Encounter Summary ---
Author Organization [facility] Address [address] [place] [address] Care Team Providers Care Feed Manager Name Role Phone Yanelis Montgomery NP Primary Care Provider [phone]- [phone] Encounter Details Date Type Department Care Team (Late st Contact Info) Description 06/09/2025 Lab Requisition [facility] - Main Lab 299 [facility] [place] [address] Daron Randhawa MD [address] [place] [address] Essential (primary) hypertension Social History Tobacco Use Types Packs/Day Years [...] Associated Diagnosis Comments COMPLETE BLOOD COUNT Routine 06/09/2025 7:05 AM EDT Essential (primary) hypertension BASIC METABOLIC PANEL Routine 06/09/2025 7:05 AM EDT Essential (primary) hypertension documented in this encounter Results * (ABNORMAL) Basic metabolic panel (06/09/2025 7:05 AM EDT) Sodium 138 133 - 145 mmol/L LAB CHEMISTRY METHOD 06/09/2025 11:07 AM EDT [facility] Potassium 4.9 3.5 - 5.5 mmol/L LAB CHEMISTRY METHOD 06/09/2025 11:07 AM EDT [facility] Chloride 109 96 - 110 mmol/L LAB CHEMISTRY METHOD 06/09/2025 11:07 AM [facility] CO2 26 21 - 32 mmol/L LAB CHEMISTRY METHOD 06/09/2025 11:07 AM [facility] Anion Gap 3 3 - 11 LAB CHEMISTRY METHOD 06/09/2025 11:07 AM [facility] Glucose 59(L) 70 - 100 mg/dL LAB CHEMISTRY METHOD 06/09/2025 11:07 AM [facility] BUN 9 5 - 25 mg/dL LAB CHEMISTRY METHOD 06/09/2025 11:07 AM [facility] Creatinine 0.55 0.50 - 1.10 mg/dL LAB CHEMISTRY METHOD 06/09/2025 11:07 AM [facility] eGFR 89 >=60 mL/min/1. 73m2 LAB CHEMISTRY METHOD 06/09/2025 11:07 AM [facility] Comment:Calculation based on the Chronic Kidney Disease Epidemiology Collaboration (CKD-EPI) equation refit without adjustment for race. BUN/Creatinine Ratio 16.4 LAB CHEMISTRY METHOD 06/09/2025 11:07 AM [facility] Calcium 8.6 8.5 - 10.5 mg/dL LAB CHEMISTRY METHOD 06/09/2025 11:07 AM [facility] Blood Venous blood specimen / Unknown Venipuncture / Unknown 06/09/2025 7:05 AM EDT 06/09/2025 9:58 AM EDT us Daron Randhawa MD LAB BLOOD ORDERABLES Final Resul t [facility] [address] [place] [address], * (ABNORMAL) Complete blood count (06/09/2025 7:05 AM EDT) WBC 6.7 4.8 - 10.8 K/mcL LAB HEMETOLOGY METHOD 06/09/2025 10:43 AM [facility] RBC 3.70(L) 3.80 - 4.80 M/[facility] LAB HEMETOLOGY METHOD 06/09/2025 10:43 AM [facility] Hemoglobin 11.6 11.5 - 16.0 g/dL LAB HEMETOLOGY METHOD 06/09/2025 10:43 AM [facility] Hematocrit 36.1 35.0 - 47.0 % LAB HEMETOLOGY METHOD 06/09/2025 10:43 AM [facility] MCV 97.0 79.0 - 98.0 FL LAB HEMETOLOGY METHOD 06/09/2025 10:43 AM [facility] MCH 31.2 27.0 - 32.0 pcg LAB HEMETOLOGY METHOD 06/09/2025 10:43 AM [facility] MCHC 32.1 32.0 - 37.0 g/dL LAB HEMETOLOGY METHOD 06/09/2025 10:43 AM [facility] RDW 14.6 11.0 - 15.0 % LAB HEMETOLOGY METHOD 06/09/2025 10:43 AM [facility] Platelets 183 130 - 400 K/mcL LAB HEMETOLOGY METHOD 06/09/2025 10:43 AM [facility] MPV 11.4(H) 7.0 - 11.0 FL LAB HEMETOLOGY METHOD 06/09/2025 10:43 AM [facility] NRBC 0.0 <1.0 % LAB HEMETOLOGY METHOD 06/09/2025 10:43 AM [facility] NRBC Absolute 0.00 <0.10 K/[facility] LAB HEMETOLOGY METHOD 06/09/2025 10:43 AM [facility] Blood Venous blood specimen / Unknown Venipuncture / Unknown 06/09/2025 7:05 AM EDT 06/09/2025 9:58 AM EDT Daron Randhawa MD LAB BLOOD ORDERABLES Final Resul t [facility] ([facility]) [facility] [address] [place] [address], documented in this encounter Visit Diagnoses Diagnosis Essential (primary) hypertension Unspecified essential hypertension documented in this encounter Care Teams Feed Manager Relationship Specialty Start Date End Date Yanelis Montgomery NP [address] [place] [address] PCP - General Internal Medicine 03/18/22 documented as of this encounter
--- OUTSIDE RECORDS SUMMARY | 2025-09-07 21:54 | XMS_ITS | Encounter Summary ---
Author Organization [facility] Address [address] [place] [address] Care Team Providers Care Vehicle Dynamics Engineer Name Role Phone Yanelis Montgomery NP Primary Care Provider [phone]- [phone] Encounter Details Date Type Department Care Team (Late st Contact Info) Description 01/04/[address] [facility] - Main Lab 299 [facility] [place] [address] Daron Randhawa MD [address] [place], [place] [phone] Long QT syndrome; Other epilepsy, not intractable, without status epilepticus (CMS/HCC V24, CMS/HCC V28) Social History Tobacco [...] Procedure Name Priority Date/Time Associated Diagnosis Comments OXCARBAZEPINE LEVEL Routine 01/04/2025 5 :28 AM EDT Long QT syndrome Other epilepsy, not intractable, without status epilepticus documented in this encounter Results * Oxcarbazepine level (01/04/2025 5:28 AM EDT) Oxcarbazepine 24.4 10 - 35 ug/mL 01/06/2025 8:12 AM EDT [facility] Comment: If applicable, any drug confirmation testing reported here was developed and the performance characteristics determined by [facility]. This confirmation testing has not been cleared or approved by the FDA. The laboratory is regulated under CLIA as qualified to perform high-complexity testing. This test is used for patient testing purposes. It should not be regarded as investigational or for research. Test performed at [facility], [address], [place] [address] Delmy Hurst MD, PhD - Tobacco Stemmer Blood Venous blood specimen / Unknown Venipuncture / Unknown 01/04/2025 5:28 AM EDT 01/04/2025 10:05 AM EDT us Daron Randhawa MD LAB BLOOD ORDERABLES Final Resul t [facility] [address] [place] [address] documented in this encounter Visit Diagnoses Diagnosis Long QT syndrome Other epilepsy, not intractable, without status epilepticus (CMS/HCC V24, CMS/HCC V28) documented in this encounter Care Teams Vehicle Dynamics Engineer Relationship Specialty Start Date End Date Yanelis Montgomery NP [address] [place] [address] PCP - General Internal Medicine 03/18/22 documented as of this encounter
--- OUTSIDE RECORDS SUMMARY | 2025-09-07 21:54 | XMS_ITS | Encounter Summary ---
Author Organization [facility] Address [address] [place] [address] Care Team Providers Care White Mixing Operator Name Role Phone Yanelis Montgomery NP Primary Care Provider +1- [phone] Encounter Details Date Type Department Care Team (Late st Contact Info) Description 08/01/2025 Lab Requisition [facility] - Main Lab [address] [facility] [place] [address] Daron Randhawa MD [address] [place] [address] Vomiting, unspecified Social History Tobacco Use Types Packs/Day [...] Associated Diagnosis Comments COMPLETE BLOOD COUNT Routine 08/01/2025 10:10 AM EDT Vomiting, unspecified BASIC METABOLIC PANEL Routine 08/01/2025 10:10 AM EDT Vomiting, unspecified documented in this encounter Results * (ABNORMAL) Basic metabolic panel (08/01/2025 10:10 AM EDT) Sodium 138 133 - 145 mmol/L LAB CHEMISTRY METHOD 08/01/2025 2:08 PM EDT [facility] Potassium 4.1 3.5 - 5.5 mmol/L LAB CHEMISTRY METHOD 08/01/2025 2:08 PM EDT [facility] Chloride 108 96 - 110 mmol/L LAB CHEMISTRY METHOD 08/01/2025 2:08 PM [facility] CO2 26 21 - 32 mmol/L LAB CHEMISTRY METHOD 08/01/2025 2:08 PM [facility] Anion Gap 4 3 - 11 LAB CHEMISTRY METHOD 08/01/2025 2:08 PM [facility] Glucose 104(H) 70 - 100 mg/dL LAB CHEMISTRY METHOD 08/01/2025 2:08 PM [facility] BUN 11 5 - 25 mg/dL LAB CHEMISTRY METHOD 08/01/2025 2:08 PM [facility] Creatinine 0.89 0.50 - 1.10 mg/dL LAB CHEMISTRY METHOD 08/01/2025 2:08 PM [facility] eGFR 63 >=60 mL/min/1. 73m2 LAB CHEMISTRY METHOD 08/01/2025 2:08 PM [facility] Comment:Calculation based on the Chronic Kidney Disease Epidemiology Collaboration (CKD-EPI) equation refit without adjustment for race. BUN/Creatinine Ratio 12.4 LAB CHEMISTRY METHOD 08/01/2025 2:08 PM [facility] Calcium 8.4(L) 8.5 - 10.5 mg/dL LAB CHEMISTRY METHOD 08/01/2025 2:08 PM [facility] Blood Venous blood specimen / Unknown Venipuncture / Unknown 08/01/2025 10:10 AM EDT 08/01/2025 11:15 AM EDT us Daron Randhawa MD LAB BLOOD ORDERABLES Final Resul t [facility] [address] [place] [address], [place] [phone] * (ABNORMAL) Complete blood count (08/01/2025 10:10 AM EDT) WBC 10.1 4.8 - 10.8 K/mcL LAB HEMETOLOGY METHOD 08/01/2025 11:32 AM [facility] RBC 3.30(L) 3.80 - 4.80 M/mcL LAB HEMETOLOGY METHOD 08/01/2025 11:32 AM [facility] Hemoglobin 9.7(L) 11.5 - 16.0 g/dL LAB HEMETOLOGY METHOD 08/01/2025 11:32 AM [facility] Hematocrit 31.9(L) 35.0 - 47.0 % LAB HEMETOLOGY METHOD 08/01/2025 11:32 AM [facility] MCV 97.0 79.0 - 98.0 FL LAB HEMETOLOGY METHOD 08/01/2025 11:32 AM [facility] MCH 29.5 27.0 - 32.0 pcg LAB HEMETOLOGY METHOD 08/01/2025 11:32 AM [facility] MCHC 30.4(L) 32.0 - 37.0 g/dL LAB HEMETOLOGY METHOD 08/01/2025 11:32 AM [facility] RDW 13.9 11.0 - 15.0 % LAB HEMETOLOGY METHOD 08/01/2025 11:32 AM [facility] Platelets 254 130 - 400 K/[facility] LAB HEMETOLOGY METHOD 08/01/2025 11:32 AM [facility] MPV 10.2 7.0 - 11.0 FL LAB HEMETOLOGY METHOD 08/01/2025 11:32 AM [facility] NRBC 0.0 <1.0 % LAB HEMETOLOGY METHOD 08/01/2025 11:32 AM [facility] NRBC Absolute 0.00 <0.10 K/mcL LAB HEMETOLOGY METHOD 08/01/2025 11:32 AM EDT [facility] Blood Venous blood specimen / Unknown Venipuncture / Unknown 08/01/2025 10:10 AM EDT 08/01/2025 11:15 AM EDT Daron Randhawa MD LAB BLOOD ORDERABLES Final Resul t [facility] [address] [place] [address], documented in this encounter Visit Diagnoses Diagnosis Vomiting, unspecified documented in this encounter Care Teams White Mixing Operator Relationship Specialty Start Date End Date Yanelis Montgomery NP [address] [place] [address] PCP - General Internal Medicine 03/18/22 documented as of this encounter
--- OUTSIDE RECORDS SUMMARY | 2025-09-07 21:54 | XMS_ITS | Encounter Summary ---
Author Organization [facility] Address [address] [facility] [address] [place] [address] Phone Care Team Providers Care Protective Signal Installer Name Role Phone Yanelis Montgomery CNP Primary Care Provide r Dirk Guillory MD Unavailable [phone] To Matthews DO Unavailable Magda Clement OT Unavailable [phone] Unknown, Unknown Primary Care Provider Raleigh Uribe MD Primary Care Provider + Encounter Details Date Type Department Care Team (Late st Contact Info) Description 07/01/2023 Procedure Pass [facility], Ct Scan - [address] [id number] Social History Tobacco Use Types Packs/Day Years [...] high school, GED, job training, learning the Wallisian language, technical skills, or developing parenting skills)? [...] 5:59 PM EDT Tessa Truong RN * [place] Suicide Severity Rating Scale (Screener/Recent Self-Report) Question Answer Date of Assessment Author 1. Wish to be (Past 1 Month) No 07/01/2023 5:59 PM ZAKT Tessa Zeng RN 2. Non-Specific Active Suici rosalia Thoughts (Past 1 Month) No 07/01/2023 5:59 PM EDT Rubens Zeng RN 6. Suicidal Behavior (Lifetime) No 5:59 PM ZAKT Azucena, Tessa J, RN documented as of this encounter Plan of Treatment Upcoming Encounters Date Type Department Care Team (Late st Contact Info) Description 01/04/2026 10:30 AM EDT Office Visit [facility] Neurology [address] [place] [address] Km Dash MD [address] [facility], 2nd [place] [address] documented as of this encounter Visit Diagnoses Not on filedocumented in this encounter Additional Health Concerns Infection Onset Date Last Indicated Resolved Time CoV-Risk 09/16/2023 09/22/2023 10/03/2023 1:22 AM EST Assessment Noted Time PHQ-9 Depression Total Score: 1 08/19/20 2:22 PM EST PHQ-2 Depression Total Score: 0 01/14/20 2:00 PM EDT documented as of this encounter Care Teams Protective Signal Installer Relationship Specialty Start Date End Date Yanelis Montgomery CNP [address] [place] [address] PCP - General Family Medicine 08/21/21 12/13/23 Unknown, Unknown, MD PCP - General 12/14/23 01/03/24 Raleigh Cook MD [address] [place] [address] PCP - General Internal Medicine 01/04/24 Dirk Guillory MD [address] [place] [address] Medical Oncology 11/12/21 To Matthews DO [address] [place] [address] Insurance Assigned Provider 01/16/24 10/17/24 Magda Clement OT [address] [place] [address] [email or web address] Transitions Computer Hardware TechnicianShrinking Machine Operator Therapy 07/02/23 07/05/23 documented as of this encounter Additional Source Comments The information contained in this document represents components of the legal health record. It is not the complete legal health record.[facility]
--- OUTSIDE RECORDS SUMMARY | 2025-09-07 21:54 | XMS_ITS | Encounter Summary ---
Author Organization [facility] Address [address] [place] [address] Care Team Providers Care Promotional Model Name Role Phone Yanelis Montgomery NP Primary Care Provider [phone]- [phone] Encounter Details Date Type Department Care Team (Late st Contact Info) Description 12/20/[address] [facility] - Main Lab 299 [facility] [place] [address] Daron Randhawa MD [address] [place], [place] [phone] Other epilepsy, not intractable, without status epilepticus [...] Associated Diagnosis Comments SST - GOLD Routine 12/20/2024 6:31 AM EDT Other epilepsy, not intractable, without status epilepticus (CMS/HCC) LAVENDER - EDTA Routine 12/20/2024 6:31 AM EDT Other epilepsy, not intractable, without status epilepticus (CMS/HCC) RED - PLAIN Routine 12/20/2024 6:31 AM EDT Other epilepsy, not intractable, without status epilepticus (CMS/HCC) documented in this encounter Results * Lavender tube (12/20/2024 6:31 AM EDT) Extra Tube Hold for add-ons. 12/20/2024 11:01 AM EDT [facility] Comment:Auto resulted. Blood Venous blood specimen / Unknown Venipuncture / Unknown 12/20/2024 6:31 AM EDT 12/20/2024 9:11 AM EDT us Daron Randhawa MD LAB BLOOD ORDERABLES Final Resul t Performing Organization Address City/[facility] Co de Phone Number [facility] [address] [place] [address], [place] [phone] * SST tube (12/20/2024 6:31 AM EDT) Extra Tube Hold for add-ons. 12/20/2024 11:01 AM EDT [facility] Comment:Auto resulted. Blood Venous blood specimen / Unknown Venipuncture / Unknown 12/20/2024 6:31 AM EDT 12/20/2024 9:11 AM EDT us Daron Randhawa MD LAB BLOOD ORDERABLES Final Resul t Performing Organization Address [facility] de Phone Number [facility] [address] [place] [address], [place] [phone] * Red tube (12/20/2024 6:31 AM EDT) Extra Tube Hold for add-ons. 12/20/2024 11:01 AM EDT [facility] Comment:Auto resulted. Blood Venous blood specimen / Unknown Venipuncture / Unknown 12/20/2024 6:31 AM EDT 12/20/2024 9:11 AM EDT us Daron Randhawa MD LAB BLOOD ORDERABLES Final Resul t Performing Organization Address City/[facility]/ZIP Co de Phone Number [facility] [address] [place] [address], documented in this encounter Visit Diagnoses Diagnosis Other epilepsy, not intractable, without status epilepticus (CMS/HCC V24, CMS/HCC V28) documented in this encounter Care Teams Promotional Model Relationship Specialty Start Date End Date Yanelis Montgomery OPERATOR PREFINISH [address] [place] [address] PCP - General Internal Medicine 03/18/22 documented as of this encounter
--- OUTSIDE RECORDS SUMMARY | 2025-09-07 21:54 | XMS_ITS | Encounter Summary ---
Author Organization [facility] Address [address] [place] [address] Care Team Providers Care Follow Up Clerk Name Role Phone Yanelis Montgomery NP Primary Care Provider [phone] Encounter Details Date Type Department Care Team (Late st Contact Info) Description 07/07/2025 Lab Requisition [facility] [address] [facility] [place] [address] Daron Randhawa MD [address] [place] [address] Essential (primary) hypertension Social History Tobacco Use [...] Associated Diagnosis Comments COMPLETE BLOOD COUNT Routine 07/07/2025 6:58 AM EDT Essential (primary) hypertension BASIC METABOLIC PANEL Routine 07/07/2025 6:58 AM EDT Essential (primary) hypertension documented in this encounter Results * (ABNORMAL) Basic metabolic panel (07/07/2025 6:58 AM EDT) Sodium 139 133 - 145 mmol/L LAB CHEMISTRY METHOD 07/07/2025 2:11 PM EDT [facility] Potassium 4.8 3.5 - 5.5 mmol/L LAB CHEMISTRY METHOD 07/07/2025 2:11 PM EDT [facility] Chloride 108 96 - 110 mmol/L LAB CHEMISTRY METHOD 07/07/2025 2:11 PM EDT [facility] CO2 25 21 - 32 mmol/L LAB CHEMISTRY METHOD 07/07/2025 2:11 PM [facility] Anion Gap 6 3 - 11 LAB CHE[facility]STR[facility]/07[facility] Glucose 55(L) 70 - 100 mg/dL LAB CHEMISTRY METHOD 07/07/2025 2:11 PM EDT [facility] BUN 10 5 - 25 mg/dL LAB CHEMISTRY METHOD 07/07/2025 2:11 PM [facility] Creatinine 0.53 0.50 - 1.10 mg/dL LAB CHEMISTRY METHOD 07/07/2025 2:11 PM [facility] eGFR 90 >=60 mL/min/1. 73m2 LAB CHEMISTRY METHOD 07/07/2025 2:11 PM T [facility] Comment:Calculation based on the Chronic Kidney Disease Epidemiology Collaboration (CKD-EPI) equation refit without adjustment for race. BUN/Creatinine Ratio 18.9 LAB CHEMISTRY METHOD 07/07/2025 2:11 PM [facility] Calcium 8.3(L) 8.5 - 10.5 mg/dL LAB CHEMISTRY METHOD 07/07/2025 2:11 PM [facility] Blood Venous blood specimen / Unknown Venipuncture / Unknown 07/07/2025 6:58 AM EDT 07/07/2025 10:01 AM EDT us Daron Randhawa MD LAB BLOOD ORDERABLES Final Resul t [facility] [address] [place] [address], * (ABNORMAL) Complete blood count (07/07/2025 6:58 AM EDT) WBC 6.7 4.8 - 10.8 K/[facility] LAB HEMETOLOGY METHOD 07/07/2025 12:04 PM [facility] RBC 2.80(L) 3.80 - 4.80 M/[facility] LAB HEMETOLOGY METHOD 07/07/2025 12:04 PM [facility] Hemoglobin 8.8(L) 11.5 - 16.0 g/dL LAB HEMETOLOGY METHOD 07/07/2025 12:04 PM [facility] Hematocrit 27.4(L) 35.0 - 47.0 % LAB HEMETOLOGY METHOD 07/07/2025 12:04 PM [facility] MCV 98.9(H) 79.0 - 98.0 FL LAB HEMETOLOGY METHOD 07/07/2025 12:04 PM [facility] MCH 31.8 27.0 - 32.0 pcg LAB HEMETOLOGY METHOD 07/07/2025 12:04 PM [facility] MCHC 32.1 32.0 - 37.0 g/dL LAB HEMETOLOGY METHOD 07/07/2025 12:04 PM [facility] RDW 14.7 11.0 - 15.0 % LAB HEMETOLOGY METHOD 07/07/2025 12:04 PM [facility] Platelets 208 130 - 400 K/[facility] LAB HEMETOLOGY METHOD 07/07/2025 12:04 PM [facility] MPV 10.8 7.0 - 11.0 FL LAB HEMETOLOGY METHOD 07/07/2025 12:04 PM [facility] NRBC 0.0 <1.0 % LAB HEMETOLOGY METHOD 07/07/2025 12:04 PM [facility] NRBC Absolute 0.00 <0.10 K/[facility] LAB HEMETOLOGY METHOD 07/07/2025 12:04 PM EDT [facility] Blood Venous blood specimen / Unknown Venipuncture / Unknown 07/07/2025 6:58 AM EDT 07/07/2025 10:01 AM EDT us Daron Randhawa MD LAB BLOOD ORDERABLES Final Resul t [facility] [address] [place] [address], documented in this encounter Visit Diagnoses Diagnosis Essential (primary) hypertension Unspecified essential hypertension documented in this encounter Care Teams Follow Up Clerk Relationship Specialty Start Date End Date Yanelis Montgomery NP [address] [place] [id number] PCP - General Internal Medicine 03/18/22 documented as of this encounter
--- OUTSIDE RECORDS SUMMARY | 2025-09-07 21:54 | XMS_ITS | Encounter Summary ---
Author Organization [facility] Address [address] [place] [address] Care Team Providers Care Assistant Professor Of Drama Name Role Phone Yanelis Montgomery NP Primary Care Provider [phone]- [phone] Encounter Details Date Type Department Care Team (Late st Contact Info) Description 10/19/2024 Lab Requisition [facility] [address] [facility] [place] [address] Daron Randhawa MD [address] [place], [place] [id number] Pneumonia, unspecified organism; Hyperkalemia Social History Tobacco Use Types Packs/Day Years [...] Associated Diagnosis Comments COMPLETE BLOOD COUNT Routine 10/19/2024 11:16 AM EST Pneumonia, unspecified organism Hyperkalemia BASIC METABOLIC PANEL Routine 10/19/2024 11:16 AM EST Pneumonia, unspecified organism Hyperkalemia documented in this encounter Results * (ABNORMAL) Basic metabolic panel (10/19/2024 11:16 AM EST) Sodium 137 133 - 145 mmol/L LAB CHEMISTRY METHOD 10/19/2024 12:55 PM EST [facility] Potassium 5.4 3.5 - 5.5 mmol/L LAB CHEMISTRY METHOD 10/19/2024 12:55 PM [facility] Chloride 108 96 - 110 mmol/L LAB CHEMISTRY METHOD 10/19/2024 12:55 PM [facility] CO2 24 21 - 32 mmol/L LAB CHEMISTRY METHOD 10/19/2024 12:55 PM [facility] Anion Gap 5 3 - 11 LAB CHEMISTRY METHOD 10/19/2024 12:55 PM [facility] Glucose 68(L) 70 - 100 mg/dL LAB CHEMISTRY METHOD 10/19/2024 12:55 PM [facility] BUN 4(L) 5 - 25 mg/dL LAB CHEMISTRY METHOD 10/19/2024 12:55 PM [facility] Creatinine 0.89 0.50 - 1.10 mg/dL LAB CHEMISTRY METHOD 10/19/2024 12:55 PM [facility] eGFR 63 >=60 mL/min/1. 73m2 LAB CHEMISTRY METHOD 10/19/2024 12:55 PM [facility] Comment:Calculation based on the Chronic Kidney Disease Epidemiology Collaboration (CKD-EPI) equation refit without adjustment for race. BUN/Creatinine Ratio 4.5 LAB CHEMISTRY METHOD 10/19/2024 12:55 PM [facility] Calcium 8.5 8.5 - 10.5 mg/dL LAB CHEMISTRY METHOD 10/19/2024 12:55 PM [facility] Blood Venous blood specimen / Unknown 10/19/2024 11:16 AM EST 10/19/2024 12:15 PM EST us Daron Randhawa MD LAB BLOOD ORDERABLES Final Resul t [facility] [address] [place] [address], * (ABNORMAL) Complete blood count (10/19/2024 11:16 AM EST) WBC 6.4 4.8 - 10.8 K/mcL LAB HEMETOLOGY METHOD 10/19/2024 2:26 PM [facility] RBC 3.10(L) 3.80 - 4.80 M/mcL LAB HEMETOLOGY METHOD 10/19/2024 2:26 PM [facility] Hemoglobin 10.2(L) 11.5 - 16.0 g/dL LAB HEMETOLOGY METHOD 10/19/2024 2:26 PM [facility] Hematocrit 30.5(L) 35.0 - 47.0 % LAB HEMETOLOGY METHOD 10/19/2024 2:26 PM [facility] MCV 97.8 79.0 - 98.0 FL LAB HEMETOLOGY METHOD 10/19/2024 2:26 PM [facility] MCH 32.7(H) 27.0 - 32.0 pcg LAB HEMETOLOGY METHOD 10/19/2024 2:26 PM [facility] MCHC 33.4 32.0 - 37.0 g/dL LAB HEMETOLOGY METHOD 10/19/2024 2:26 PM [facility] RDW 17.2(H) 11.0 - 15.0 % LAB HEMETOLOGY METHOD 10/19/2024 2:26 PM [facility] Platelets 209 130 - 400 K/mcL LAB HEMETOLOGY METHOD 10/19/2024 2:26 PM [facility] MPV 10.4 7.0 - 11.0 FL LAB HEMETOLOGY METHOD 10/19/2024 2:26 PM [facility] NRBC 0.0 <1.0 % LAB HEMETOLOGY METHOD 10/19/2024 2:26 PM [facility] NRBC Absolute 0.00 <0.10 K/mcL LAB HEMETOLOGY METHOD 10/19/2024 2:26 PM [facility] Blood Venous blood specimen / Unknown 10/19/2024 11:16 AM EST 10/19/2024 2:25 PM EST Daron Randhawa MD LAB BLOOD ORDERABLES Final Resul t [facility] [address] [place] [address], documented in this encounter Visit Diagnoses Diagnosis Pneumonia, unspecified organism Hyperkalemia Hyperpotassemia documented in this encounter Care Teams Assistant Professor Of Drama Relationship Specialty Start Date End Date Yanelis Montgomery NP [address] [place] [address] PCP - General Internal Medicine 03/18/22 documented as of this encounter
--- OUTSIDE RECORDS SUMMARY | 2025-09-07 21:55 | XMS_ITS | Encounter Summary ---
Author Organization [facility] Address [address] [facility] [address] [place] [address] Phone Care Team Providers Care Circuit Court Magistrate Name Role Phone Yanelis Montgomery CNP Primary Care Provide r Dirk Guillory MD Unavailable [phone] To Matthews DO Unavailable Magda Clement OT Unavailable [phone] Magda Clement OT Unavailable [phone] Unknown, Unknown Primary Care Provider Raleigh Uribe MD Primary Care Provider + Encounter Details Date Type Department Care Team (Late st Contact Info) Description 11/05/2021 Transcribe Orders [address] [id number] Yanelis Montgomery, [address] [place] [address] [email or web address] Social History Tobacco Use Types Packs/Day Years [...] high school, GED, job training, learning the [place] language, technical skills, or developing parenting skills)? [...] Visit [facility] Neurology [address] [place] [address] Km Dash MD [address] [facility], [address] [place] [address] [email or web address] documented as of this encounter Visit Diagnoses Not on filedocumented in this encounter Additional Health Concerns Infection Onset Date Last Indicated Resolved Time CoV-Risk 09/16/2023 09/22/2023 10/03/2023 1:22 AM EST Assessment Noted Time PHQ-2 Depression Total Score: 0 10/01/20 1:55 PM EST documented as of this encounter Care Teams Circuit Court Magistrate Relationship Specialty Start Date End Date Valentina Yanelis KarenYULY [address] [place] [address] PCP - General Family Medicine 08/21/21 12/13/23 Unknown, Unknown, MD PCP - General 12/14/23 01/03/24 Raleigh Cook MD [address] [place] [id number] PCP - General Internal Medicine 01/04/24 Dirk Guillory MD [address] [place] [id number] Medical Oncology 11/12/21 To Matthews DO [address] [place] [address] Insurance Assigned Provider 01/16/24 10/17/24 Magda Clement, OT [address] [place] [address] Transitions Glove WrapperFarm Equipment Engineer Therapy 05/12/23 05/13/23 Magda Clement, OT [address] [place] [address] [email or web address] Transitions Glove WrapperFarm Equipment Engineer Therapy 07/02/23 07/05/23 documented as of this encounter Additional Source Comments The information contained in this document represents components of the legal health record. It is not the complete legal health record.[facility]
--- OUTSIDE RECORDS SUMMARY | 2025-09-07 21:55 | XMS_ITS | Encounter Summary ---
Author Organization [facility] Address [address] [facility] [address] [place] [address] Phone Care Team Providers Care Tactical Debriefer Name Role Phone Yanelis Montgomery [facility] Primary Care Provide r Dirk Guillory MD Unavailable [phone] To Matthews DO Unavailable Magda Clement OT Unavailable [phone] Magda Clement OT Unavailable [phone] Unknown, Unknown Primary Care Provider Raleigh Uribe MD Primary Care Provider + Encounter Details Date Type Department Care Team (Late st Contact Info) Description 05/11/2023 Procedure Pass [facility], Ct Scan - [address] [address] Social History Tobacco Use Types Packs/Day Years [...] high school, GED, job training, learning the [place] language, technical skills, or developing parenting skills)? [...] Date of Assessment Author No Risk Indicated 05/11/2023 6:19 PM EDT Esperanza Spears RN * [place] Suicide Severity Rating Scale (Screener/Recent Self-Report) Question Answer Date of Assessment Author 1. Wish to be (Past 1 Month) No 05/11/2023 10:41 AM EDT Lady Catrachito [place] RN 2. Non-Specific Active Suicidal Thoughts (Past 1 Month) No 05/11/2023 6:19 PM EDT Esperanza Spears RN 3. Active Suicidal Ideation with any Methods (Not Plan) Without Intent to Act (Past 1 Month) No 05/11/2023 6:19 PM EDT Esperanza Spears RN 4. Active Suicidal Ideation with Some Intent to Act, Without Specific Plan (Past 1 Month) No 05/11/2023 6:19 PM EDT Esperanza Spears RN 5. Active Suicidal Ideation with Specific Plan and Intent (Past 1 Month) No 05/11/2023 6:19 PM EDT Esperanza Spears RN 6. Suicidal Behavior (Lifetime) No 05/11/2023 6:19 PM EDT Esperanza Spears RN documented as of this encounter Plan of Treatment Upcoming Encounters Date Type Department Care Team (Late st Contact Info) Description 01/04/2026 10:30 AM EDT Office Visit [facility] Neurology [address] [place] [address] Km Dash MD [address] [place] [address], [address] [place] [address] documented as of this encounter Visit Diagnoses Not on filedocumented in this encounter Additional Health Concerns Infection Onset Date Last Indicated Resolved Time CoV-Risk 09/16/2023 09/22/2023 10/03/2023 1:22 AM EST Assessment Noted Time PHQ-9 Depression Total Score: 1 08/19/20 22 2:22 PM EST PHQ-2 Depression Total Score: 0 01/14/20 23 2:00 PM EDT documented as of this encounter Care Teams Tactical Debriefer Relationship Specialty Start Date End Date Yanelis Montgomery CNP [address] [place] [address] [place] [address] PCP - General Family Medicine 08/21/21 12/13/23 Unknown, Kasia, MD PCP - General 12/14/23 01/03/24 Raleigh Cook MD [address] [place] [address] PCP - General Internal Medicine 01/04/24 Dirk Guillory MD [address] [place] [address] Medical Oncology 11/12/21 To Matthews DO [address] [place] [id number] [email or web address] Insurance Assigned Provider 01/16/24 10/17/24 Magda Clement, OT [address] [place] [address] [email or web address] Transitions Molding EngineerAcid Remover Therapy 05/12/23 05/13/23 Magda Clement, OT [address] [place] [address] [email or web address] Transitions Molding EngineerAcid Remover Therapy 07/02/23 07/05/23 documented as of this encounter Additional Source Comments The information contained in this document represents components of the legal health record. It is not the complete legal health record.[facility]
--- OUTSIDE RECORDS SUMMARY | 2025-09-07 21:55 | XMS_ITS | Clinical Summary ---
Author Organization [facility] Address [address] [address] [place] [address] Phone Care Team Providers Care General Dentist/Owner Name Role Phone Dirk Guillory MD Unavailable [phone] Raleigh Cook MD Primary Care Provider + Allergies Active Allergy Reactions Criticality Noted Date Comments Meperidine Nausea and/or Vomiting 10/01/2021 Folic Acid Mental Status Change 10/01/2021 Gadolinium-Containing Contrast Media Sneezing Low 02/26/2023 Pt began to sneeze a few times after completion of injection of gadolinium. Dr Tinsley determined this was a mild reaction to the contrast. Droperidol Mental Status Change 10/01/2021 Red Blood Cells High 12/29/2012 Other reaction(s): Other (See Comments) Antibodies-Difficult to Crossmatch DO NOT REMOVE Please contact the Blood Bank at [phone] for questions. Unclassified Drug 12/02/2012 [id number]-[id number]-Sdvyo Hornet 12/02/2012 Medications adalimumab (HUMIRA) 40 mg/0.4 mL pen kit Inject 40 mg under the skin every 14 (fourteen) days. 40mg subcu injection Q 14 days for 28 days 1 Active PEG 400-propylene glycol (SYSTANE) 0.4-0.3 % Drop Place 1 drop into each eye every hour as needed. Active magnesium oxide 500 mg Cap Take 500 mg by mouth 2 (two) times a day. 180 capsule 1 3 Active multivitamin with minerals Cap Take 1 capsule by mouth daily. 90 capsule 1 3 Active aspirin 81 mg chewable tablet Take 1 tablet (81 mg total) by mouth daily. 30 tablet 3 Active escitalopram oxalate (LEXAPRO) 5 MG tabletIndications: Recurrent major depressive disorder, in full remission TAKE (1) TABLET DAILY. 90 tablet 3 3 Active furosemide (LASIX) 20 MG tabletIndications: Medication refill Take 1 tablet (20 mg total) by mouth daily. 90 tablet 3 3 Active atorvastatin (LIPITOR) 40 MG tabletIndications: Medication refill Take 1 tablet (40 mg total) by mouth nightly at bedtime. 90 tablet 3 3 Active pantoprazole (PROTONIX) 20 MG tablet TAKE (1) TABLET DAILY. 90 tablet 3 3 Active potassium chloride SA (KLOR-CON M) 20 MEQ ER tablet Take 20 mEq by mouth daily. 4 Active senna (SENOKOT) 8.6 mg tablet Take 1 tablet by mouth daily. Active niacinamide 500 mg TbER Take 500 mg by mouth nightly at bedtime. Active OXcarbazepine (TRILEPTAL) 150 MG tablet Take 150 mg by mouth daily. 4 Active magnesium hydroxide (MILK OF MAGNESIA ORAL) Take by mouth. Active bisacodyl (DULCOLAX) [address] 10 mg rectally as needed (when milk of magnesia not effective). Active acetaminophen (TYLENOL) 325 mg tablet Take 650 mg by mouth every 6 (six) hours as needed. Active metoprolol tartrate (LOPRESSOR) 25 MG tablet Take 12.5 mg by mouth nightly at bedtime. FOR AFIB 4 Active lidocaine (LIDODERM) 5 % Place 1 patch onto the skin as needed. Remove & Discard patch within 12 hours or as directed by MD Active sodium phosphate,mono-eva asic (FLEET ENEMA EXTRA RECT) Place 1 enema rectally as needed (when dulcolax is not effective). Active OXcarbazepine (TRILEPTAL) 600 MG tablet Take 600 mg by mouth nightly at bedtime. FOR SEIZURES Active levothyroxine (SYNTHROID, LEVOTHROID) 50 MCG tabletIndications: Central hypothyroidism Take 1 tablet (50 mcg total) by mouth every morning. 90 tablet 1 Active Active Problems Problem Noted Date Diagnosed Date CHF (congestive heart failure) 07/01/2023 Assessment & Plan (08/09/2024 3:22 PM EDT): He is asymptomatic from a heart failure standpoint she is on furosemide 20 mg daily. She is euvolemic on exam today. Assessment & Plan (02/08/2024 3:27 PM EDT): She is euvolemic on exam today. She will continue her medications of metoprolol 12.5 mg daily and furosemide 20 mg daily. She is encouraged to follow a low-sodium diet and to weigh yourself daily looking for weight gain of 3 pounds in 2 days or 5 pounds over a week that is not coming off of the diuretic. Assessment & Plan (07/31/2023 2:29 PM EDT): She is currently euvolemic on exam today. She is on torsemide 20 mg daily, Toprol 12.5 mg daily she will manage medications without change. I did ask her to start taking her metoprolol at night instead of during the day to help with her fatigue. Assessment & Plan (07/03/2023 8:01 AM EDT): Patient was noted to have bilateral lower extremity edema, small right pleural effusion with mild pulmonary edema on chest x-ray in setting of elevated BNP consistent with CHF. No prior hx Status post IV diuresis, significant weight loss -Now on Lasix 20 mg daily -Daily weights -Patient was able to wean to room air -Monitor intake, outtake -Cardiac diet -TTE showed normal LV size and function at 60%. There are segmental left ventricular wall motion abnormalities. Ascending aorta mildly dilated at 4 cm. NSTEMI (non-ST elevated myocardial infarction) 0 07/01/2023 Overview (07/23/2023): 06/2023 [facility] adm NSTEMI, HF Assessment & Plan (08/09/2024 3:23 PM EDT): Will continue to optimize her cardiac risk factors. She is on aspirin 81 mg daily, atorvastatin 40 mg daily, furosemide 20 mg daily, metoprolol 12.5 mg at night which she will continue without change. She is encouraged follow heart healthy diet including low-sodium. Assessment & Plan (02/08/2024 3:27 PM EDT): Asymptomatic at this time we will continue to optimize her cardiac risk factors. She is on aspirin 81 mg daily, atorvastatin 40 mg daily, Toprol 12.5 mg daily. Assessment & Plan (07/31/2023 2:29 PM EDT): She is doing well post hospitalization. She denies any further cardiac symptoms at this time. Assessment & Plan (07/23/2023 1:57 PM EDT): Doing better, no recurrence of sx, no evidence of fluid overload. Has f/u with cardiology next week. Assessment & Plan (07/03/2023 8:05 AM EDT): Patient was noted to have elevated troponin at 619, trended to 769 in setting of CHF exacerbation (new). Primary complaint of nausea, dizziness likely represented symptoms of NSTEMI. The symptoms have since resolved. -Continue heparin drip to complete 48 hours-this will end at 1600 today -Cardiology consulted in ED, Dr. Knutson -Troponin downtrending -QTc prolonged 520; avoid prolonging agents -Telemetry monitoring continues -Stress test results, shows nondiagnostic EKG for ischemia. Nuclear images reviewed showed fixed perfusion deficits in the inferior and lateral luo suggesting infarction involving the RCA and circumflex territories with diminished inferior wall myocardial thickening, EF remains unchanged at 65%. -Continue aspirin daily -Lipid profile shows LDL just about at goal -Discontinued niacin -Start Lipitor 40 mg daily per cardiology -TSH, low though T4 within normal limits -Continues on metoprolol 12.5mg XR -Cardiology will arrange outpatient follow-up Hyponatremia 07/01/2023 Assessment & Plan (07/03/2023 8:07 AM EDT): Hyponatremic at 128, this is likely secondary to volume overload in setting of CHF exacerbation. Hypotonic hyponatremia with Osmo of 268. Urine sodium, Osmo pending collection. Sodium is 129 today, downtrending slightly, will place patient on a conservative fluid restriction Chronic kidney disease, stage 3 05/11/2023 05/11/2023 Assessment & Plan (07/03/2023 8:07 AM EDT): History of CKD stage III in chart, currently appears to have recovered to stage II. Continue to monitor and avoid nephrotoxins as able, tolerating diuretic Assessment & Plan (05/11/2023 4:50 PM EDT): Creatinine appears to be at baseline Fecal incontinence 05/11/2023 Assessment & Plan (05/13/2023 7:26 AM EDT): -Lab work revealed abnormal electrolytes, LFTs unremarkable, white blood cell count 8.7 no fever -CT showed rectosigmoid colonic wall thickening with perirectal and presacral fat stranding and moderate fecal load reflecting either Crohn's disease or stercoral colitis. -GI consulted, Sigmoidoscopy 05/12 showed Normal mucosa in the recto-sigmoid colon. Biopsied. No stercoral or active colitis/proctitis - Incontinence likely secondary to decreased sphincter tone found on digital rectal exam - will Continue present medications. Electrolyte abnormality 05/11/2023 Assessment & Plan (07/03/2023 8:07 AM EDT): Mild lows during hospitalization, on supplement, follow-up level tomorrow Assessment & Plan (05/12/2023 1:49 PM EDT): On admission pt had Hyponatremia, low magnesium. Does take Lexapro and Trileptal. Will replete electrolytes as needed. Pulmonary nodule 05/11/2023 Assessment & Plan (05/11/2023 4:49 PM EDT): CT incidental finding There is a 6 mm left lower lobe pulmonary nodule without prior exam for comparison. Consider follow-up CT in one year Patient will need to follow-up with PCP Other insomnia 01/13/2023 Assessment & Plan (01/13/2023 2:18 PM EDT): Not clear the nature of patient's longstanding use/need for Tylenol PM. I did explain adverse effects of the medicine and it would be better for her to be off than on and taking every night. We discussed sleep in older adults and that less if needed. Since she is taking an hour nap during the day that counts in with total sleep and so may be less sleep duration at night, making her think she can stay asleep. Staying in bed for ten hours as she does is too long in bed and recommend she shoot for seven hours and have consistent bed time and wake time. Due to her not wanting to get out of bed in morning may be due to hangover effect from the diphenhydramine in Tylenol PM and encouraged her to stop using it. She can try Melatonin but not sure this is needed either. Encouraged her to get light in early evening and be active throughout the day. Central hypothyroidism 10/01/2021 Assessment & Plan (04/05/2025 11:50 AM EDT): The patient has central hypothyroidism so we should not follow the TSH we need to follow the free T4. Recall that she has a meningioma that caused stalk compression elevating prolactin also suppressed her TSH. But when she does not take thyroxine supplementation the free T4 decreases and the TSH is in the normal reference range. So for central hypothyroidism we will follow-up with the free T4 only and I suppose checking the TSH can lead to confusion because sometimes it is suppressed but the TSH results is not accurate due to the meningioma so we should follow the free T4. I noticed that the dose of levothyroxine was decreased from 100 to 50 mcg and I do not know exactly when this was done but I think that is best just to continue with the levothyroxine 50 mcg and repeat the free T4 and just see how she does with this dose. She states that she has been complaining of fatigue. But she has been complaining of fatigue for over the last 3 months. I am not sure if it is thyroid related. Assessment & Plan (12/13/2024 2:35 PM EST): I suspect that the patient has not taken levothyroxine 100 mcg for the entire year. I did not put an order in. There were instructions to continue levothyroxine. So unless another physician prescribed the levothyroxine she did not receive it. Furthermore I did not receive any messages to renew the prescription. So at this point I will prescribe levothyroxine 100 mcg and have her return for follow-up in 3 months she should repeat both TSH and free T4. Again we do not necessarily follow the TSH but it had been suppressed in the past due to the meningioma and now the TSH is normal that she is no longer taking the levothyroxine but the free T4 is low. Surprisingly she seems quite well without the thyroxine medication. Assessment & Plan (10/29/2023 1:34 PM EST): She has central hypothyroidism she is chemically and for the most part clinically euthyroid on levothyroxine 100 mcg daily. She will repeat her free T4 in 1 year. In central hypothyroidism we do not follow the TSH is always going to be suppressed. 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 Assessment & Plan (07/23/2023 1:55 PM EDT): Clinically euthyroid, under care of Dr Pfeiffer Assessment & Plan (10/30/2022 1:39 PM EST): Chemically and clinically euthyroid with 100 mcg daily she should continue her current medication repeat thyroid function studies in 1 year. Assessment & Plan (09/11/2022 10:36 AM EST): F/u with Dr Pfeiffer Assessment & Plan (08/19/2022 2:46 PM EST): Pt to f/u on labs and med refills through rn clinical coordinator Assessment & Plan (07/15/2022 9:32 AM EDT): The patient is taking levothyroxine 100 mcg daily fasting at 6:00 in the morning and waits until 8:00 to eat that is when she wakes up but she is taking her multivitamins at that time as well. I told her that she must wait 4 hours before taking multivitamins because the calcium in the iron find normal thyroxine and prevents absorption. She is complaining of fatigue so maybe she is not absorbing levothyroxine. I have no way of knowing because she did not repeat thyroid function studies prior to this visit. So I asked her to do the lab work that I requested on the last visit. Today I put in a second set of thyroid functions ordered that she must do again in 3 months time before the follow-up visit. Assessment & Plan (02/27/2022 1:57 PM EDT): This is a patient who has history of meningioma and has had multiple resections. She did not require radiation therapy. 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 Prolactin levels have been elevated on occasions. I suspect that this is possibly due to the inability of dopamine to reach his receptor to inhibit prolactin production. However most recent prolactin levels were in the reference range. So this is somewhat odd. FSH and LH are not elevated. So I wonder if this has something to do with radiation therapy. Her TSH is suppressed and this can be due to to radiation therapy inhibiting TSH production. Her free T4 and free T3 as a result are low. So she apparently has central hypothyroidism. She is already on levothyroxine. She states that she is taking 75 mcg but this is insufficient and she requires a higher dose. If she has central hypothyroidism we do not want to check the TSH levels anymore because they just going to confuse us. Normally most patients have primary hypothyroidism and when they take too much thyroid medication is suppresses the TSH. This is not the case for central hypothyroidism. The TSH does not respond to the level of thyroxine hormone in the bloodstream because it does not respond at all since the pituitary is not capable of making TSH. So what we have to follow is the free T4 and free T3. Typically we just follow free T4. Since she is taking levothyroxine 75 mcg and I asked her to again confirm that this is accurate then I will increase the dose of levothyroxine to 100 mcg. Based on her body weight if she did not have a thyroid gland she will require 106 mcg daily so it is good to start out by 100 mcg repeat the thyroid function studies in 3 months and if the free T4 and free T3 have not normalized we can always increase the dose of levothyroxine further. She was advised that on the day of the lab work she must take her thyroid medications. She must wait at least 2 hours before obtaining lab work. He does not take biotin so the levels should be accurate. She inquired if she can drink milk. Now she cannot she must take it with water because of calcium and binds levothyroxine and prevents absorption. Assessment & Plan (12/04/2021 5:09 PM EST): She will see endo for management of thyroid disease and abnormal labs Assessment & Plan (10/01/2021 4:45 PM EST): TSH is low, unclear what dose pt has been taking, she will let me know and we will adjust and recheck level. Recurrent major depressive disorder, in full rem ission 10/01/2021 Assessment & Plan (07/23/2023 1:56 PM EDT): Mood is stable, daughter she is enjoying being at [facility], involved socially Assessment & Plan (01/13/2023 2:13 PM EDT): Mood stable on low dose Ecitalopram,encouraged her to think about why she lingers in bed in the morning. Assessment & Plan (08/19/2022 2:45 PM EST): Pt stable on the Escitalopram. Assessment & Plan (07/16/2022 2:11 PM EDT): Mood variable, due to seizure hx recommend stopping the Wellbutrin and starting Lexapro. She will remain on the Wellbutrin for two weeks after starting Lexapro and then stop Wellbutrin. Assessment & Plan (12/04/2021 5:08 PM EST): Increased situational depression, cont Wellbutrin due to seizure hx cannot increase dose but if additional medication needed consider SSRI. Family supportive Assessment & Plan (10/01/2021 4:43 PM EST): Stable on current regimen of Wellbutrin for past year but discussed coming off this agent in future due to seizure hx and using alternative agent, will discuss in future appt. Hypomagnesemia 10/01/2021 Assessment & Plan (10/01/2021 4:47 PM EST): Magnesium level just below normal. Continue current Magnesium and we will recheck level in near future. 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 Under the care of Dr Dash. She will stay on same dose of medication. No seizures. Assessment & Plan (07/16/2022 2:10 PM EDT): States no seizures in years, on Trileptil group home, recommend being under the care of neurology for oversight Assessment & Plan (12/04/2021 5:06 PM EST): Stable no seizure activity on current regimen Assessment & Plan (10/01/2021 4:42 PM EST): Due to meningiomas, stable on Trileptal Vitamin B12 deficiency Overview (10/01/2021): Takes B - complex Assessment & Plan (10/01/2021 4:43 PM EST): Taking B - Complex Osteopenia Overview (10/01/2021): s/p Fosamax rx for five years Meningioma, multiple Overview (10/01/2021): New one frontal and another on brain stem; left temporal meningioma resected 2001; [facility] (debulked 2012); Frontal lobe (resected 2012) Assessment & Plan (04/05/2025 11:51 AM EDT): The patient has meningioma with stalk compression causing hyperprolactinemia, TSH levels have been suppressed but we can follow the TSH due to the tumor compression. So we have to follow free T4. Cortisol levels have been in the reference range. We need to monitor this at least yearly just to ensure that ACTH levels are not affected. Assessment & Plan (12/13/2024 2:11 PM EST): As a result of meningioma she has stalk compression resulting in elevated prolactin levels. Also central hypothyroidism. IGF levels have been in the reference range. At this point I have been checking cortisol level to ensure that these remain in the normal reference range. She should repeat cortisol level in a year. Assessment & Plan (10/29/2023 1:33 PM EST): She is possible risk of developing adrenal insufficiency so I will check fasting cortisol level. Assessment & Plan (07/23/2023 1:53 PM EDT): Under surveillance with Dr Abarca neurosurgery, next appt 03/2024 Assessment & Plan (10/30/2022 1:41 PM EST): Appears to have inhibition of gonadotropins, TSH possibly IGF-I despite the fact that is in the reference range. Prolactin is elevated due to stalk compression. ACTH is in the reference range she does not appear to have adrenal insufficiency. Instead of checking ACTH level I will check cortisol level which is easier. If this is deficient then we will have to check ACTH. Assessment & Plan (07/16/2022 2:09 PM EDT): Under the care of neurosurgery, last MRI 03/2022 stable from previous, next due in 2022 Assessment & Plan (07/15/2022 9:33 AM EDT): Status post resection on 2 occasions and radiation therapy ACTH was intact previously TSH was suppressed FSH not elevated, prolactin levels normalized. I suspect that the pituitary gland has been affected due to radiation therapy and its not producing anterior pituitary hormones but again ACTH was intact electrolytes in the reference range. I asked her to repeat anterior pituitary problems today in the hospital. Assessment & Plan (02/27/2022 2:02 PM EDT): This patient has meningioma s/p resection and radiation therapy. I believe that it affected her anterior pituitary hormones. ACTH is still in the reference range. FSH is not elevated and it should be elevated unclear if it has been affected. Her prolactin level is presently in the reference range but it has been elevated and I do not think that this is necessarily due to radiation therapy but may be due to brainstem tumor that may be inhibiting dopamine transit to his receptor resulting in elevated prolactin levels. What is unclear to me now is why is it suddenly in the reference range. IGF levels have not been checked and I will check this. The TSH level has indicated in the section of hypothyroidism is suppressed and this is likely because the pituitary gland is no longer making TSH. Anterior pituitary hormones should be monitored at least yearly but they need to be done fasting first thing in the morning. So in the future this is what I would recommend. I would not be repeating all the lab work because they were just done in September 2021. Assessment & Plan (12/04/2021 5:06 PM EST): New one frontal and another on brain stem; left temporal meningioma resected 2001; At [facility] (debulked 2012); Frontal lobe (resected 2012) Pre patient no further surgery can be done she did not tolerate radiation. She will be due for imaging and plan per specialty, she will reach out to Dr Rodas at [place] - otherwise refer to neurosurgery in [place] Assessment & Plan (10/01/2021 4:41 PM EST): New one frontal and another on brain stem; left temporal meningioma resected 2001; At [facility] (debulked 2012); Frontal lobe (resected 2012) She will transfer care to [facility] Hypertension Assessment & Plan (08/09/2024 3:23 PM EDT): Blood pressure is well-controlled today 138/80. Will make no changes to her medications. SBP goal is 130/80. She does complain of having some lightheadedness when getting up first thing in the morning but is unclear whether this is related to her blood pressure as this seems to resolve. Assessment & Plan (02/08/2024 3:26 PM EDT): Blood pressure is controlled today 130/72. She is on metoprolol 12.5 mg daily, furosemide 20 mg daily. Will continue his medication without change. She is encouraged follow her healthy diet including low sodium Assessment & Plan (07/31/2023 2:29 PM EDT): Blood pressure is well controlled today 120/72. She will continue metoprolol 12.5 mg daily and her furosemide 20 mg daily. Assessment & Plan (07/23/2023 1:52 PM EDT): Stable on current regimen Assessment & Plan (05/11/2023 4:49 PM EDT): Continue beta-carolina with hold parameters Assessment & Plan (01/01/2023 10:28 AM EDT): Stable on current regimen Assessment & Plan (09/11/2022 10:36 AM EST): Stable on current regimen Assessment & Plan (07/16/2022 2:11 PM EDT): Stable on current regimen Assessment & Plan (12/04/2021 5:08 PM EST): Stable on current regimen Assessment & Plan (10/01/2021 4:43 PM EST): Stable on current regimen Hyperlipidemia Assessment & Plan (02/08/2024 3:27 PM EDT): Continue atorvastatin 40 mg daily. I will put in for lipid panel for her to have drawn for an updated lab. Crohn disease Overview (05/13/2023): Small bowel resection - 195605/12/2023 Colonoscopy -(done for pain, diarrhea) - normal Assessment & Plan (07/23/2023 1:55 PM EDT): Small bowel resection - 195605/12/2023 Colonoscopy -(done for pain, diarrhea) - normal Stable on current regimen Assessment & Plan (07/01/2023 4:54 PM EDT): Continues on Humira every 14 days. Currently in no exacerbation of this. Assessment & Plan (05/12/2023 1:44 PM EDT): History of partial bowel resection decades ago , Currently on Humira GI consulted,sigmoidoscopy done on 05/[address] Carr, will continue her q. 14-day adalimumab therapy Assessment & Plan (07/16/2022 2:10 PM EDT): Stable on Humira under the care of Dr Carr Assessment & Plan (12/04/2021 5:07 PM EST): Stable with Humira Assessment & Plan (10/02/2021 5:15 PM EST): Stable on Humira under care of Dr Carr Resolved Problems Problem Noted Date Diagnosed Date Resolved Date Colitis 05/11/2023 07/23/2023 Skin irritation 06/12/2022 07/23/2023 Assessment & Plan (01/13/2023 2:13 PM EDT): Improved, continue daily zinc oxide based cream Assessment & Plan (01/01/2023 10:27 AM EDT): Chronic irritation in fold of old drain site where skin folds over, no infection, recommend applying zinc oxide based cream to affected area once a day and as needed. Assessment & Plan (07/16/2022 2:12 PM EDT): Improved, keep area clean and dry Assessment & Plan (06/12/2022 4:03 PM EDT): No underlying infection noted, superficial skin involved - present in folds of scars, for now apply bacitracin at least daily but if no improvement or worsening by next week then could try antifungal. Keep keep and dry, avoid scrubbing, gentle cleanse once daily and pat dry. Immunizations Immunization Administration Dates Next Due COVID-19 (Pre-08/03) Pfizer Vaccine, Bivalent 12+ 07/16/2022 COVID-19 (Pre-08/03) Pfizer Vaccine, mRNA, PF 09/12/2021,11/15/2020,11/14/2020 Hepatitis A, Unspecified 05/25/2018,12/21/2017 Hepatitis B, unspecified formulation 11/23/2017 INFLUENZA, SPLIT VIRUS, TRIV ALENT W/ PRESERVATIVE IM 08/07/2021,07/09/2016,07/12/2012 Influenza High-Dose Quadriva lent Preservative Free IM 07/04/2023(Deferred: Contraindication),07/16/2022, Influenza High-Dose Trivalen t Preservative Free IM 07/22/2023,07/13/2019,07/15/2017 Influenza, Unspecified Formulation 07/12/2011 Influenza, whole 07/21/2019 Pneumococcal conjugate PCV13 08/23/2015 Pneumococcal polysaccharide PPSV23 11/06/2011, Td (adult) 5 Lf Tetanus Toxo id, PF, Adsorbed 08/19/2022 Td, unspecified formulation 11/06/2011 Tdap 11/06/2011 Zoster live 11/19/2011 Family History Medical History Relation Comments Breast cancer Daughter 1 Breast cancer Daughter 2 SIDS Daughter 3 SIDS Daughter 4 Thyroid disease Daughter 4 Rectal cancer Mother Relation Status Comments Daughter 1 Alive Daughter 2 Alive Daughter 3 Daughter 4 Other Mother Son Alive Social History Tobacco Use Types Packs/Day Years Used Date Smoking Tobacco: Former Cigarettes 0.3 47 1 [birth year]/02/1953 - 10/01/2001 Smokeless Tobacco: Never Tobacco Cessation:Counseling Given: Not Answered Alcohol Use Standard Drinks/Week Comments Not Currently 0 (1 standard drink = 0.6 oz pur e alcohol) Home Health Assessment: Transportation Answer Date Recorded Lack of Transportation (Medical) No 08/20/2023 Lack of Transportation (Non-Medical) No 08/20/2023 Patient Unable or Declines to Respond No 08/20/2023 Child or Family Care Answer Date Record ed Do you have problems with on e of the following making it difficult for you to work, study, or receive health care? No 10/01/2021 Education Answer Date Recorded Are you interested in more education? Not on craig e 10/03/2023 Are you concerned about learning? Not on file 10/03/2023 No 10/03/2023 No 10/03/2023 Food Answer Date Recorded Within the past [...] with a working camera? Not on file Intimate Partner Violence Answer Date R ecorded Are you denied basic needs s uch as food, clothing, or medical care? No 09/22/2023 In the past 12 months have y ou been in a relationship with a person who hurts, threatens, or tries to control you? No 09/22/2023 Are you denied basic needs s uch as food, clothing, or medical care? No 09/22/2023 In the past 12 months have y ou been in a relationship with a person who hurts, threatens, or tries to control you? No 09/22/2023 Comments Unknown Sex and Gender Information Value Date Recorded Sex Assigned at Female 05/11/2023 6:17 PM EDT Legal Sex Female 10:41 AM EDT Gender Identity Female 05/11/2023 6:17 PM EDT Sexual Orientation Straight 05/11/2023 6: 17 PM EDT Last Filed Vital Signs Vital Sign Reading Time Taken Comments Blood Pressure 98/50 04/05/2025 11:17 AM EDT Pulse 60 04/05/2025 11:17 AM EDT Temperature 36.6 C (97.9 F) 10/29/2023 1:05 PM EST Respiratory Rate 15 09/22/2023 5:30 PM EST Oxygen Saturation 98% 04/05/2025 11:17 AM EDT Inhaled Oxygen Concentration - - Weight 50.8 kg (112 lb) 04/05/2025 11:17 AM EDT Height 157.2 cm (5' 1.89 ) 12/13/2024 1:50 PM ES T Body Mass Index 20.56 12/13/2024 1:50 PM EST Plan of Treatment Upcoming Encounters Date Type Department Care Team (Late st Contact Info) Description 01/04/2026 10:30 AM EDT Office Visit [facility] Neurology [address] [place] [id number] [address] Dash MD 22 [facility], [address] [place] [address] [email or web address] Health Maintenance Due Date Last Done Comments OSTEOPOROSIS SCREENING INITIAL (ONE-TIME) 2003 ZOSTER VACCINES (1 of 2) 01/14/2012 11/19/2011 RSV VACCINE (1 - 1-dose 75+ series) 2013 DEPRESSION SCREENING 07/23/2024 07/23/2023, 08/19/20 22 POTASSIUM LEVEL 09/22/2024 09/22/2023, 12/0 03/2023, 07/12/2023, Additional history exists INFLUENZA VACCINE (#1) 2025 3, 07/22/2023, 07/16/2022, Additional history exists COVID-19 VACCINE ( season) 2025 07/16/2022, 09/12/2021, 12/05/2020, Additional history exists TSH LEVEL 04/03/2026 04/03/2025, 060 01/2025, 12/05/2024, Additional history exists Adult Td,Tdap Booster 08/19/2032 08/19/2022 , 11/06/2011, 11/06/2011 PNEUMOCOCCAL VACCINES (50+ years) Completed 08/23/2015, 11/06/2011, 08/12/2004 HEPATITIS A VACCINES Aged Out 05/25/2018, 12/22/19 18 No longer eligible based on patient's age to complete this topic HIB VACCINES Aged Out No longer eligi ble based on patient's age to complete this topic MENINGOCOCCAL VACCINES (ACWY) Aged Out No longer eligible based on patient's age to complete this topic MENINGOCOCCAL VACCINES (B) Aged Out N o longer eligible based on patient's age to complete this topic Medical Devices Not on file Procedures Procedure Name Priority Date/Time Associated Diagnosis Comments BASIC METABOLIC PANEL (BMP) STAT 09/22/2023 3:33 PM EST TSH WITH REFLEX STAT 09/16/2023 10:52 AM EST from Last 3 Months or Most Recently Relevant to Health Maintenance Results * (ABNORMAL) Basic metabolic panel (09/22/2023 3:33 PM EST) SODIUM 136 133 - 146 mmol/L [facility] CHLORIDE 103 96 - 108 mmol/L [facility] POTASSIUM 5.6(H) 3.3 - 5.1 mmol/L [facility] CO2 23 21 - 35 mmol/L [facility] BUN 17 6 - 19 mg/dL [facility] CREATININE 1.10 0.5 - 1.5 mg/dL [facility] GLUCOSE 90 70 - 99 mg/dL [facility] CALCIUM 9.3 8.4 - 10.3 mg/dL [facility] EGFR 49(L) >59 mL/min/1.7 3m2 [facility] Comment:Estimated glomerular filtration rate calculated using the CKD-EPI refit equation. ANION GAP 16 10 - 20 mmol/L [facility] Blood 09/22/2023 3:33 PM EST 09/22/2023 3:53 PM EST us Foreign Sánchez PA-C LAB BLOOD BKR ORDERABLES Mary l Result Performing Organization Address [facility] [facility]/ZIP Co de Phone Number [address] [address] * (ABNORMAL) TSH with reflex (09/16/2023 10:52 AM EST) TSH <0.01(L) 0.27 - 4.20 uIU/mL [facility] Blood 09/16/2023 10:5 2 AM EST 09/16/2023 10:59 AM EST Mike Fairchild MD LAB BLOOD BKR ORDERABLES Final Result Performing Organization Address [facility] [facility] Co de Phone Number [address] [address] from Last 3 Months or Most Recently Relevant to Health Maintenance Insurance MEDICARE PART A & B [facility] EXTENSION MEDICARE SUPPLEMENT [facility] NET FULL MEDICARE PART A & B [facility] MEDICARE SUPPLEMENT [facility] [place] [address] [address] MEDICARE PART A [place] [id number] MEDICARE PART A & B Member Subscriber Plan / Payer (Ef fective 2003-Present) Name:Briana Lozano Member ID:[id number] Relation to Subscriber:Self Name:Briana Lozano Subscriber ID:[id number] Payer ID:[id number] Group ID:Not on file Type:Medicare Address: [employer] [address] MEDICARE PART A & B EXTENSION MEDICARE SUPPLEMENT [facility] FULL MEDICARE PART A & B MEDICARE PART A & [place] [address] [place] [address] EXTENSION MEDICARE SUPPLEMENT [facility] [employer] NET FULL MEDICARE PART A & B [facility] EXTENSION MEDICARE SUPPLEMENT [facility] FULL MEDICARE PART A & B [facility] EXTENSION MEDICARE SUPPLEMENT [facility] NET FULL Member Subscriber Plan / Payer (Ef fective 2025-Present) Name:Briana Lozano Relation to Subscriber:Self Name:Briana Lozano Payer ID:Not on file Group ID:Not on file Type:Medicaid [address] [place] [id number] Advance Directives For more information, please contact: [phone] (9AM - 5PM 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 Agrees to intubation in the event respiratory status worsens. * Full Code Date Activated Date Inactivated Comments 05/11/2023 7:07 PM 07/01/2023 4:47 PM Question Answer Comments Code Status Confirmed With: Patient Care Teams General Dentist/Owner Relationship Specialty Start Date End Date Raleigh Cook MD [address] [place] [id number] PCP - General Internal Medicine 01/04/24 Dirk Guillory MD [address] [place] [id number] Medical Oncology 11/12/21 Additional Source Comments The information contained in this document represents components of the legal health record. It is not the complete legal health record.[facility]
[2025-09-07 21:59] LABS: Resp Syncy Virus RNA Qual PCR NEGATIVE (Negative); SARS COV2 PCR INHOUSE NEGATIVE (Negative)
[2025-09-07 22:00] VITALS: BP 103/56; PULSE 88; RESP 14; TEMP 36.6; O2SAT 100
[2025-09-07] MEDS: iohexoL 350 MG/ML 100 ML INFUS..BTL 85 ML IV (23:27)
[2025-09-08] MEDS: Lactated Ringers 500 ML 999 ML IV (00:20)
--- NOTE | 2025-09-08 02:13 | PM.IMHP ---
History of Present Illness Date of Service: 09/08/25 Attending physician on admission: Oren San Chief Complaint: Nausea and vomiting Briana Lozano is a 85 years old woman with past medical history significant for Crohn's disease, meningioma status post surgery x2 and radiation, HFpEF, epilepsy, hyperlipidemia and essential hypertension presents to the ED complaining of nausea and multiple events of vomiting that started today. One of the episodes was blood-tinged sputum with clots. She denied associated abdominal pain, diarrhea or constipation. She did complain weight loss which she attributes to diet change at the facility she is living in currently. She does have a good appetite. She does not take blood thinners. Denied chest pain, shortness on breath, dizziness or palpitations. Denied alcohol abuse, tobacco smoking or illicit drug use. She has a history of cholecystectomy. In the ED, she was found to have stable vital signs. Blood workup showed no leukocytosis. Hemoglobin is 10.7, hematocrit 34.1 and platelets 236. There are no significant electrolyte imbalances. LFTs are unremarkable except for mild elevation of AST and alk-phos. Troponin is 20.2, CRP 0.89, total protein 6.1 and albumin 2.6. Abdominal pelvis CT scan with IV contrast showed large necrotic mass 5.7 by 4.70 cm of the gastric wall suspicious for neoplasm. ED tx: Zofran 4 mg IV, LR 1 L IV total, pantoprazole 40 mg IV Review of Systems Review of Systems: All 12 systems were reviewed and normal except as noted in HPI. [facility] Medical History CHF (congestive heart failure) Epilepsy Crohn's disease Deaf Meningioma HLD (hyperlipidemia) HTN (hypertension) Social History (Updated 09/07/25 @ 20:56 by Cheryle Fonseca DO) Patient Tobacco Use Status: Never used Tobacco Advance Directives: No Advance Directives Information Provided: No service: No Meds Allergies Allergy/AdvReac Type Severity Reaction Status Date / Time bee venom protein (honey bee) Allergy Unknown Verified 09/07/25 21:05 droperidol (From Inapsine) Allergy Unknown Verified 09/07/25 21:05 folic acid Allergy Unknown Verified 09/07/25 21:05 Gadolinium-Containing Allergy Unknown Verified 09/07/25 21:05 Contrast Medi meperidine (From Demerol) Allergy Unknown Verified 09/07/25 21:05 Active Medications: Current Medications Acetaminophen (Acetaminophen 325 Mg Tablet) 650 mg PO Q6H PRN PRN Reason: Pain, Mild 1-3,fever,headache Calcium Carbonate (Calcium Carbonate 750 Mg Tab.Chew) 750 mg PO Q4H PRN PRN Reason: Heartburn Lactated Ringer's (Lr) 1,000 mls @ 80 mls/hr IVCONT .[id number] MODESTA Magnesium Hydroxide (Milk Of Magnesia 30 Ml Oral.Susp) 30 ml PO DAILY PRN PRN Reason: Constipation Melatonin (Melatonin 3 Mg Tablet) 6 mg PO BEDTIME PRN PRN Reason: Insomnia Sodium Chloride (0.9 % Sodium Chloride Flush 3 Ml Syringe) 3 ml IVFLUSH QSHIFT [facility] Home Medications ?Medication ?Instructions ?Recorded ?Confirmed ?Last Taken ?Type acetaminophen 325 mg tablet 650 mg PO Q6H PRN Pain (Scale 10/13/24 10/13/24 Unknown History Score 1-3) adalimumab 40 mg/0.4 mL 40 mg subcut Q14D 10/13/24 10/13/24 Unknown History subcutaneous pen kit aspirin 81 mg tablet,delayed 81 mg PO DAILY 10/13/24 10/13/24 Unknown History release atorvastatin 40 mg tablet 40 mg PO DAILY 10/13/24 10/13/24 Unknown History bisacodyl 10 mg rectal suppository 10 mg NH DAILY PRN Constipation 10/13/24 10/13/24 Unknown History escitalopram oxalate 5 mg tablet 7.5 mg PO DAILY 10/13/24 10/13/24 Unknown History famotidine 20 mg tablet 20 mg PO BID 10/13/24 10/13/24 Unknown History furosemide 20 mg tablet 20 mg PO DAILY 10/13/24 10/13/24 Unknown History magnesium hydroxide 400 mg/5 mL 30 ml PO DAILY PRN Constipation 10/13/24 10/13/24 Unknown History oral suspension (Milk of Magnesia) magnesium oxide 400 mg PO BID 10/13/24 10/13/24 Unknown History metoprolol tartrate 25 mg tablet 12.5 mg PO BEDTIME 10/13/24 10/13/24 Unknown History multivitamin 1 tab PO DAILY 10/13/24 10/13/24 Unknown History niacinamide 500 mg tablet 500 mg PO DAILY 10/13/24 10/13/24 Unknown History ondansetron HCl 4 mg tablet 4 mg PO Q8H PRN Nausea And Vomiting 10/13/24 10/13/24 Unknown History oxcarbazepine 150 mg tablet 150 mg PO DAILY 10/13/24 10/13/24 Unknown History oxcarbazepine 300 mg tablet 600 mg PO BEDTIME 10/13/24 10/13/24 Unknown History sennosides 8.6 mg tablet (senna) 8.6 mg PO BID PRN Constipation 10/13/24 10/13/24 Unknown History sodium phosphates 19 gram-7 118 ml [place] DAILY PRN Constipation 10/13/24 10/13/24 Unknown History gram/118 mL enema (Fleet Enema) Physical Exam Vital Signs and Narrative: Vital Signs: Last Vital Signs Temp 97.9 F 09/07/25 22:00 Pulse 88 09/07/25 22:00 Resp 14 09/07/25 22:00 BP 103/56 L 09/07/25 22:00 Pulse Ox 100 09/07/25 22:00 O2 Del Method Room Air 09/07/25 22:00 BMI result Body Mass Index 20.2 General: Alert, oriented, in no acute distress. Cooperative. Afebrile. HEENT: Head normocephalic, atraumatic. PER, EOMI. Sclerae anicteric, conjunctiva clear. Oropharynx without erythema or exudate. Mucous membranes dry. Neck: Supple. Heart: RRR, no murmurs, rubs or gallops. Lungs: Clear to auscultation bilaterally. No wheezes, rales, or rhonchi. Normal respiratory effort. Abdomen: Soft, non tenderness, nondistended, normoactive bowel sounds. No hepatosplenomegaly, masses or masses. Extremities: No calf tenderness bilaterally, no swelling Musculoskeletal: Full range of motion. No joint swelling, deformity, or tenderness. Generalized muscle atrophy. Skin: Warm/Dry. No pallor. No jaundice. Neurologic: Alert & oriented x4. Moving all extremities spontaneously. Normal speech. Psychological: Normal mood and affect. Thought process coherent. Results Labs 09/07/25 21:17 09/07/25 21:17 Labs: Laboratory Results - last 24 hr 09/07/25 21:17 MCV 89.7 MCH 28.2 MCHC 31.4 RDW 13.9 Plt Count 236 D MPV 9.1 L Immature Gran % (Auto) 0.4 Neut % (Auto) 66.7 Lymph % (Auto) 24.9 [place] % (Auto) 7.3 Eos % (Auto) 0.4 Baso % (Auto) 0.3 Lymph # (Auto) 1.8 [place] # (Auto) 0.5 Eos # (Auto) 0.0 Baso # (Auto) 0.0 Abs Immat Gran (auto) 0.03 Absolute Neuts (auto) 4.9 Absolute Nucleated RBC 0.000 Nucleated RBC % (auto) 0.0 Anion Gap 14 Estim Creat Clear Calc 36.8 Estimated GFR > 60 Random Glucose 79 Calcium 8.6 Magnesium 1.6 Total Bilirubin 0.3 Direct Bilirubin 0.2 AST 50 H ALT 11 Alkaline Phosphatase 169 H Troponin I High Sens 20.2 H C-Reactive Protein 0.89 H Total Protein 6.1 L Albumin 2.6 L Lipase 9 Influenza Type A (PCR) NEGATIVE Influenza Type B (PCR) NEGATIVE RSV RNA Qual (PCR) NEGATIVE SARS-CoV-2 RNA (RT-PCR) NEGATIVE Assessment and Plan (1) Upper gastrointestinal hemorrhage: Status: Acute (2) Gastric mass: Status: Acute (3) Nausea & vomiting: Qualifiers: Vomiting type: unspecified Qualified Code(s): R11.2 - Nausea with vomiting, unspecified Status: Acute Plan Briana Lozano is a 85 y/o woman with a PMHx significant for Crohn's disease (?on adalimumab infections), meningioma s/p surgery x2 and radiation, who presents with: Nausea and vomiting w/ blood clots secondary to large necrotic mass (5.7 x 4.7 cm)-> suspicious for neoplasm. No aggressive interventions/heroic measures per family. Supportive therapy with IV fluids, NPO, IV Protonix and antiemetics. Per Dr. 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 Patient is not aware of the gastric mass/neoplasm. Epilepsy. Continue oxcarbazepine. Hyperlipidemia. Continue statin. Essential hypertension. Continue metoprolol. Hypothyroidism. Continue levothyroxine. Mood disorder. Continue citalopram. HFpEF. No acute symptoms reported. Furosemide on hold for now as she has been vomiting. Code status: DNR/DNI DVT prophylaxis: SCDs only med rec pending Patient will need hospitalization for at least 2 midnights for nausea and vomiting treatment with IV fluids, IV anti-reflux meds and antiemetics. Quality Stroke Does the patient have a stroke diagnosis?: No VTE Prior VTE?: No VTE Risk Level:: Medical - moderate - high VTE Device Contraindication: N/A - Device Ordered VTE Drug Contraindication: Treatment Not Indicated
[2025-09-08] MEDS: Lactated Ringers 1,000 ML 80 ML IVCONT (02:14)
[2025-09-08] MEDS: Lactated Ringers 1,000 ML 100 ML IVCONT (04:34)
[2025-09-08 04:35] LABS: MANUAL DIFF FLAG NO
[2025-09-08 04:38] LABS: Hematocrit 29.9 % (37.0-47.0); Hemoglobin 9.5 g/dl (12.0-16.0); Imm Gran Abs Auto 0.03 X10*3/uL (0.00-0.03); Imm Gran Pct Auto 0.4 % (0.0-0.4); Lymphocytes Absolute Auto 2.0 X10*3/uL (1.2-4.9); Mean Corpuscular HGB Conc 31.8 g/dl (31.0-35.0); Mean Corpuscular Hemoglobin 29.1 pg (27.0-33.0); Mean Corpuscular Volume 91.4 fL (80.0-98.0); NRBC Abs Auto 0.000 X10*3/uL (0.0-0.012); NRBC Pct Auto 0.0 /100WBC (0.0-0.2); Platelet Count 219 X10*3/uL (160-400); Red Blood Count 3.27 X10*6/uL (4.20-5.50); White Blood Count 7.1 X10*3/uL (4.8-10.8)
[2025-09-08 05:00] LABS: Anion Gap 12 (12-20); Blood Urea Nitrogen 11 mg/dL (9-16); Calcium 8.0 mg/dL (8.4-10.2); Carbon Dioxide 23 mmol/L (22-29); Chloride 108 mmol/L (96-108); Creatinine Clr Calc Pharmacy 38.6; Estimated Glomerular Filt Rate > 60; Magnesium 1.6 mg/dL (1.6-2.6); Potassium 4.1 mmol/L (3.3-5.1); Sodium 139 mmol/L (135-145)
[2025-09-08 08:14] VITALS: BP 106/57; PULSE 74; RESP 16; TEMP 36.6; O2SAT 100
--- NOTE | 2025-09-08 08:17 | PC.NURSE ---
Patient CURYUNG Patient appeared to have soft BP's Patient arms were curled up Repositioned cuff and had patient straighten her arm BP performed 109/54
--- NOTE | 2025-09-08 08:32 | PM.EVENT ---
Event Note Date of Service: 09/08/25 Event Note: Patient seen and examined already by hospitalist team this morning, Seen and examined again Physical exam and assessment and plan as per H&P. Time Spent With Patient Time: Total time managing care of this patient today ____ minutes.
--- NOTE | 2025-09-08 08:50 | PHA.MEDREC ---
Pharmacy Consult ? Medication Reconciliation Pharmacy has completed the medication reconciliation. Utilized list from [facility]
--- NOTE | 2025-09-08 10:42 | PC.NURSE ---
Pt and her daughter agreeing to plan for palliative/hospice care, discussed with hospitalist. CM to be contacted to arrange for consult in ED.
--- NOTE | 2025-09-08 11:36 | MHC.CM.PN ---
CM MET WITH PT AND DAUGHTER AT BEDSIDE PT DOES NOT WISH TO BE ADMITTED TO THE HOSPITAL OR HAVE ANY FURTHER WORK UP SHE AND FAMILY WOULD LIKE HER TO RETURN [facility] AND THEY WILL ARRANGE HOSPICE SERVICES [facility]IA [facility] ONCE DC ORDER IS IN, NEXT AVAILABLE BLS WILL BE BOOKED
--- NOTE | 2025-09-08 11:47 | P.DS_ITS ---
DS: Providers Provider Date of Service: 09/08/25 Date of admission: 09/08/25 00:58 Date of discharge: 09/08/25 Primary care physician: Nonstaff Physician Attending physician on discharge: Martínez Dumont Discharging clinician: Martínez Dumont DS: Diagnosis Discharge Diagnosis (1) Upper gastrointestinal hemorrhage: Status: Acute (2) Gastric mass: Status: Acute (3) Nausea & vomiting: Status: Acute DS: Summary Hospital Course Hospital Course: HPI:85 years old woman with past medical history significant for Crohn's disease, meningioma status post surgery x2 and radiation, HFpEF, epilepsy, hyperlipidemia and essential hypertension presents to the ED complaining of nausea and multiple events of vomiting that started today. One of the episodes was blood-tinged sputum with clots. She denied associated abdominal pain, diarrhea or constipation. She did complain weight loss which she attributes to diet change at the facility she is living in currently. She does have a good appetite. She does not take blood thinners. Denied chest pain, shortness on breath, dizziness or palpitations. Denied alcohol abuse, tobacco smoking or illicit drug use. She has a history of cholecystectomy. In the ED, she was found to have stable vital signs. Blood workup showed no leukocytosis. Hemoglobin is 10.7, hematocrit 34.1 and platelets 236. There are no significant electrolyte imbalances. LFTs are unremarkable except for mild elevation of AST and alk-phos. Troponin is 20.2, CRP 0.89, total protein 6.1 and albumin 2.6. Abdominal pelvis CT scan with IV contrast showed large necrotic mass 5.7 by 4.70 cm of the gastric wall suspicious for neoplasm. ED tx: Zofran 4 mg IV, LR 1 L IV total, pantoprazole 40 mg IV. Hospital course: 85 y/o woman with a PMHx significant for Crohn's disease (?on adalimumab infections), meningioma s/p surgery x2 and radiation, who presents with: Patient presented to the hospital Nausea and vomiting w/ blood clots secondary to large necrotic mass (5.7 x 4.7 cm on CTA abdomen)-> suspicious for neoplasm. No aggressive interventions/heroic measures per family. Supportive therapy with IV fluids, NPO, IV Protonix and antiemetics. As per H&P ed physician : Discussed case with the family as above no aggressive interventions. Discussed with the family and the patient again this morning at bedside with the ED staff present: family decided for hospice care with most focused on the comfort , no further labs or procedures or biopsy or any further interventions . Patient last H&H .03/09.9 , no more bleeding this morning, feels comfortable, no pain. Family wishes are to transfer patient back to [place] and expedite hospice/comfort care there. Above management and plan discussed with the family(both her daughters including hcp miss winter and patient) including goal of care, total assessment and plan coordination time spent 70 minutes. Time Attestation Total time managing care of this patient today: 70 mintues. Discharge Coordination Time (in mins): 70 min Quality: Safe Use of Opioids Does Pt have an Active Cancer Diagnosis on the Problem List?: No Quality: Stroke Does the patient have a stroke diagnosis?: No Physical Exam Exam: Exam: Please see physical exam in H&P-unchanged. Vital Signs: Vital Signs: Last Vital Signs Temp 97.9 F 09/08/25 08:14 Pulse 74 09/08/25 08:14 Resp 16 09/08/25 08:14 BP 106/57 L 09/08/25 08:14 Pulse Ox 100 09/08/25 08:14 O2 Del Method Room Air 09/08/25 08:14 BMI result Body Mass Index 20.2 DS: Data Data Completed and Pending Labs on day of discharge: Laboratory Results - last 24 hr 09/07/25 09/08/25 21:17 04:06 WBC 7.4 7.1 RBC 3.80 L 3.27 L Hgb 10.7 L 9.5 L Hct 34.1 L 29.9 L MCV 89.7 91.4 MCH 28.2 29.1 MCHC 31.4 31.8 RDW 13.9 14.0 Plt Count 236 D 219 MPV 9.1 L 9.4 Immature Gran % (Auto) 0.4 0.4 Neut % (Auto) 66.7 60.0 Lymph % (Auto) 24.9 27.7 Mcculloch % (Auto) 7.3 10.5 Eos % (Auto) 0.4 1.0 Baso % (Auto) 0.3 0.4 Lymph # (Auto) 1.8 2.0 Mcculloch # (Auto) 0.5 0.8 Eos # (Auto) 0.0 0.1 Baso # (Auto) 0.0 0.0 Abs Immat Gran (auto) 0.03 0.03 Absolute Neuts (auto) 4.9 4.3 Absolute Nucleated RBC 0.000 0.000 Nucleated RBC % (auto) 0.0 0.0 Sodium 142 139 Potassium 4.7 4.1 Chloride 108 108 Carbon Dioxide 25 23 Anion Gap 14 12 BUN 12 11 Creatinine 0.85 0.81 Estim Creat Clear Calc 36.8 38.6 Estimated GFR > 60 > 60 Random Glucose 79 55 L* Calcium 8.6 8.0 L D Magnesium 1.6 1.6 Total Bilirubin 0.3 Direct Bilirubin 0.2 AST 50 H ALT 11 Alkaline Phosphatase 169 H Troponin I High Sens 20.2 H C-Reactive Protein 0.89 H Total Protein 6.1 L Albumin 2.6 L Lipase 9 Influenza Type A (PCR) NEGATIVE Influenza Type B (PCR) NEGATIVE RSV RNA Qual (PCR) NEGATIVE SARS-CoV-2 RNA (RT-PCR) NEGATIVE Imaging CT scan - abdomen: My impression: CTA abdomen: Large necrotic mass of the gastric wall is suspicious for neoplasm. This was not present on 10/13/2024. Liquid stool throughout the colon, correlate with diarrheal illness. Additional incidental findings as above. Discharge Plan Discharge Anticipated Discharge Date/Time: 09/08/25 11:35 Patient Disposition: er [facility] Discharge Diagnosis: GI bleed, necrotic gastric mass Referrals: Physician,Nonstaff [Primary Care Provider, Medical] - 1 Week Discharge Medications: New omeprazole 20 mg capsule,delayed release(DR/EC) 20 mg PO BID Qty: 1 0RF Continued oxcarbazepine 150 mg Tablet 150 mg PO DAILY sennosides [senna] 8.6 mg Tablet 8.6 mg PO BID PRN (Reason: Constipation) acetaminophen 325 mg Tablet 650 mg PO Q6H PRN (Reason: Pain (Scale Score 1-3)) ondansetron HCl 4 mg tablet 4 mg PO Q8H PRN (Reason: Nausea And Vomiting) aspirin 81 mg Tablet,Delayed Release (Dr/Ec) 81 mg PO DAILY famotidine 20 mg tablet 20 mg PO BID bisacodyl 10 mg Suppository 10 mg AK DAILY PRN (Reason: Constipation) niacinamide 500 mg Tablet 1,000 mg PO DAILY Fleet Enema 19-7 gram/118 mL Enema 118 ml AK DAILY PRN (Reason: Constipation) metoprolol tartrate 25 mg Tablet 12.5 mg PO BID adalimumab 40 mg/0.4 mL Pen Injector Kit 40 mg SUBCUT Q14D Rx Instructions: last dose 08/25 oxcarbazepine 600 mg tablet 600 mg PO BEDTIME nystatin [Nystop] 100,000 unit/gram powder 1 appl topical BID PRN (Reason: reddened areas) Rx Instructions: apply in groin and under umbilicus where the reddened area are for alteration in skin integrity levothyroxine 112 mcg tablet 112 mcg PO DAILY escitalopram oxalate 10 mg tablet 10 mg PO DAILY guaifenesin 200 mg/5 mL Liquid 200 mg PO Q4H PRN (Reason: Cough) multivitamin Tablet 1 tab PO DAILY magnesium oxide 500 mg magnesium Tablet 500 mg PO BID peg 400-propylene glycol (PF) 0.4-0.3 % Dropperette 1 drp OPHTHALMIC (EYE) QID PRN (Reason: Dry Eyes) Held atorvastatin 40 mg tablet 40 mg PO DAILY Hold Instructions: Resume on 09/11/25. furosemide 20 mg tablet 20 mg PO DAILY Hold Instructions: Resume on 09/12/25. potassium chloride 20 mEq tablet,ER particles/crystals 40 meq PO BID Hold Instructions: Resume on 09/10/25. Discharge Orders: Discharge Order (Routine); Ordered 09/08/25 Ordered By: Martínez Dumont Diet: Advance to usual diet Activity on Discharge: As tolerated Stand Alone Forms: Patient Portal Discharge page Print Language: Unable To Collect Care Plan Goals: Patient admitted to the hospital because of nausea and vomiting with blood clots thought to be secondary to large necrotic gastric mass suspicious of neoplasm: On admission plan was discussed with the family for more aggressive treatments and family decided for hospice care with most focused on the comfort , no further labs or procedures or biopsy or any further interventions . Patient last H&H 9.5/29.9 , no more bleeding this morning, feels comfortable, no pain. Family wishes are to transfer patient back to [facility] and expedite hospice/comfort care there. Health Concerns: As above. Plan of Treatment: As above. Assessment: As above. Patient Instructions: Gastrointestinal Bleeding (DC)
[2025-09-08 13:39] VITALS: BP 106/57; PULSE 74; RESP 16; TEMP 36.6; O2SAT 100
== END 2025-09-08 14:46 | disposition skilled nursing facility (03) | DRG 375 ==
LOC: HO.ED 09-08 00:29 → HO.EDOVER 09-08 01:04 → HO.S3 09-08 09:32 → HO.EDOVER 09-08 10:42
PROVIDERS: Admitting Provider Internal Medicine; Emergency Provider Emergency Medicine; Visit Provider Internal Medicine
DX: D37.1 Neoplasm of uncertain behavior of stomach (principal); I50.32 Chronic diastolic (congestive) heart failure; K92.0 Hematemesis; I96 Gangrene, not elsewhere classified; E03.9 Hypothyroidism, unspecified; G40.909 Epilepsy, unspecified, not intractable, without status epilepticus; F39 Unspecified mood [affective] disorder; Z66 Do not resuscitate; Z20.822 Contact with and (suspected) exposure to COVID-19; Z79.620 Long term (current) use of immunosuppressive biologic; Z79.82 Long term (current) use of aspirin; Z79.890 Hormone replacement therapy; Z79.899 Other long term (current) drug therapy
CPT/HCPCS: 36415; 71045; 74177; 80048; 80076; 83690; 83735; 84484; 85025; 86140; 87637; 93005; 99285; J2405; J2470; J7120; Q9967

== ENCOUNTER → 2025-09-07 21:35 | Outpatient (BNV) | payer MEDICARE, MEDICAID, OTHER, SELFPAY | PROVIDERS: Emergency Provider Emergency Medicine; Visit Provider Student in an Organized Health Care Education/Training Program | DX: R11.10 Vomiting, unspecified (principal); R05.9 Cough, unspecified | CPT/HCPCS: 71045; 74177 ==

== ENCOUNTER → 2025-09-08 00:58 | Outpatient (BNV) | payer MEDICARE, MEDICAID, OTHER, SELFPAY | PROVIDERS: Admitting Provider Internal Medicine; Emergency Provider Emergency Medicine; Visit Provider Internal Medicine | DX: K92.2 Gastrointestinal hemorrhage, unspecified (principal); K31.89 Other diseases of stomach and duodenum; R11.2 Nausea with vomiting, unspecified | CPT/HCPCS: 99235; 99499 ==